=== PATIENT | female | born 1955 | race Caucasian/White ===

== ENCOUNTER 2021-08-27 14:22 | Observation (INO) ==
[2021-08-27] MEDS ORDERED: SODIUM CHLORIDE 0.9% 1000ML 1,000 ML IV SCH (15:15)
--- NOTE | 2021-08-27 15:39 | XRay Report ---
XR chest 1V portable CLINICAL HISTORY: SEPSIS TECHNIQUE: Single frontal radiograph of the chest was obtained. Comparison: None available at the time of this dictation. FINDINGS: A left portacatheter is seen. The cardiomediastinal silhouette is normal. The lungs are clear. No prateek dence of pleural effusion or pneumothorax. IMPRESSION: No acute abnormality and in particular no evidence of pneumonia. ACT 112: Negative or not required by law. Electronically signed by: Rodriguez Candelario M.D. 08/27/2021 3:38 PM
--- NOTE | 2021-08-27 15:58 | Emergency Department Note ---
History of Present Illness General Chief complaint: Illness Stated complaint: WEAKNESS, ACID REFLUX Time Seen by Provider: 08/27/21 14:57 History of Present Illness Provider complaint: Weakness Onset (ago): day(s) 3 Associated symptoms: + weakness; no chest pain, no cough, no fever/chills, no headaches, no nausea/vomiting or no shortness of breath 66-year-old female presents emergency department for weakness. Patient is currently being treated for cancer by Dr. Delbert Magaña. Patient has a primary diagnosis of breast cancer. Patient got her first infusion of chemotherapy on Monday and since then has been feeling weak. No falls. No chest pain or difficulty breathing. No abdominal pain. No nausea vomiting diarrhea. No hematuria dysuria. No melena hematochezia. Patient had labs done by Dr. Mandujano which showed a sodium [address] Mandujano recommended the patient come to the emergency department. Patient reports no seizures or headaches. No fevers. Home Medications Medication Instructions Recorded Confirmed Type aspirin 81 mg tablet,delayed 81 mg PO QAM 10/27/19 08/27/21 History release calcium carbonate 600 mg (1,500 1 tab PO BID 10/27/19 08/27/21 History mg)-vitamin D3 200 unit tablet (Calcium 600 + D(3)) cholecalciferol (vitamin D3) 50 2,000 unit PO QPM 10/27/19 08/27/21 History mcg (2,000 unit) tablet (Vitamin D3) multivitamin-ferrous 1 tab PO QPM 10/27/19 08/27/21 History fumarate-folic acid 18 mg-400 mcg tablet (Centrum Women) latanoprost 0.005 % eye drops 1 drp OPB PM #7.5 ml 07/02/20 08/27/21 Rx lamotrigine 200 mg tablet 200 mg PO QAM 12/31/20 08/27/21 History (Lamictal) trazodone 50 mg tablet 150 mg PO HS 12/31/20 08/27/21 History escitalopram oxalate 20 mg tablet 10 mg PO QAM 02/11/21 08/27/21 History (Lexapro) lamotrigine 100 mg tablet 100 mg PO BID 02/11/21 08/27/21 History hydroxyzine HCl 10 mg tablet 10 mg PO TID tab 03/11/21 08/27/21 History melatonin 5 mg tablet 10 - 15 mg PO HS tab 03/24/21 08/27/21 History vitamin B complex (B 1 tab PO QAM 03/26/21 08/27/21 History Complex-Vitamin B12) estradiol 1 appful VAGINAL QPM 05/11/21 08/27/21 History nystatin 100,000 unit/gram topical 1 applic TOPICAL DAILY PRN 05/11/21 08/27/21 History ointment triamcinolone acetonide 0.1 % 1 applic TOPICAL DAILY PRN 05/11/21 08/27/21 History topical ointment allopurinol 100 mg tablet 100 mg PO QAM #90 tab 05/31/21 08/27/21 Rx amlodipine 2.5 mg tablet 2.5 mg PO QAM #90 tab 05/31/21 08/27/21 Rx atorvastatin 20 mg tablet (Lipitor) 20 mg PO QPM #90 tab 05/31/21 08/27/21 Rx carvedilol 25 mg tablet 25 mg PO BID #180 tab 05/31/21 08/27/21 Rx celecoxib 100 mg capsule (Celebrex) 100 mg PO QDL #90 cap 05/31/21 08/27/21 Rx losartan 100 mg tablet 100 mg PO QAM #90 tab 05/31/21 08/27/21 Rx triamterene 37.5 1 tab PO QAM #90 tab 05/31/21 08/27/21 Rx mg-hydrochlorothiazide 25 mg tablet pantoprazole 40 mg tablet,delayed 40 mg PO BID #180 tab 06/21/21 08/27/21 Rx release (Protonix) lurasidone 20 mg tablet (Latuda) 20 mg PO DAILY 06/30/21 08/27/21 History pregabalin 75 mg capsule (Lyrica) 75 mg PO BID cap 07/01/21 08/27/21 History guaifenesin 600 mg tablet, 600 mg PO BID #60 tab 07/07/21 08/27/21 Rx extended release 12 hr (Mucinex) montelukast 10 mg tablet 10 mg PO DAILY #30 tab 07/07/21 08/27/21 Rx (Singulair) ondansetron HCl 8 mg tablet 8 mg PO Q8H PRN #10 tab 08/03/21 08/27/21 Rx dulaglutide 0.75 mg/0.5 mL 0.75 mg SUBCUT WK 08/27/21 08/27/21 History subcutaneous pen injector (Trulicity) duloxetine 20 mg capsule,delayed 20 mg PO QAM 08/27/21 08/27/21 History release famotidine 20 mg tablet 20 mg PO BID 08/27/21 08/27/21 History Allergies Allergy/AdvReac Type Severity Reaction Status Date / Time amitriptyline Allergy Intermediate manic Verified 07/07/21 14:05 hydrocodone Allergy Intermediate Gastrointestinal Verified 07/07/21 14:05 Upset; "Too Sedating" fluoxetine [From Prozac] Allergy Unknown Unverified 08/27/21 16:35 haloperidol [From Haldol] Allergy Unknown Unverified 08/27/21 16:35 levalbuterol [From Xopenex] AdvReac Intermediate Jittery/anx Verified 07/07/21 14:05 ious perphenazine AdvReac Intermediate "caused Verified 07/07/21 14:05 the shakes" lisinopril AdvReac Mild Cough Verified 07/07/21 14:05 Past Med/Surg History Medical History Abdominal pain Abnormal PFT Allergic rhinitis Anxiety Ataxia Quach's cyst, unruptured Bipolar disorder Cerebral microvascular disease PT UNAWARE Chronic cough Concussion in 1970s Depression Diabetes type 2, uncontrolled Diabetic peripheral neuropathy associated with type 2 diabetes mellitus Dizziness, nonspecific Dry cough Dyslipidemia GERD (gastroesophageal reflux disease) Glaucoma Gout History of panic attacks History of right breast cancer 2013--sx/radiation Hypertension Loss of protective sensation of skin of foot Meniere's disease MVP (mitral valve prolapse) ?hx per records/no murmur noted per multiple recent [facility] PCP physical exams Osteoarthritis Peripheral edema Post traumatic stress disorder Postural lightheadedness Rectal bleeding Sleep apnea cpap SOB (shortness of breath) on exertion Status post partial amputation of foot Tremor of both hands Umbilical hernia Upper airway cough syndrome Vitamin D deficiency Surgical History H/O breast biopsy 02/2014--right breast, malignant H/O colonoscopy 2004/Aug 2015/MARCH 16/2020 H/O foot surgery left. bone graft, [place] [place] 03/2014 Also left hammer toe repair 02/2017 History of amputation of great toe 2019--left foot History of bunionectomy of left great toe History of esophagogastroduodenoscopy (EGD) History of lumpectomy of right breast History of repair of left rotator cuff 2008 and 01/2016 History of repair of right rotator cuff 2008 History of tooth extraction History of total left knee replacement (TKR) x2-- History of total right knee replacement (TKR) 2009 History of umbilical hernia repair History of wisdom tooth extraction S/P cholecystectomy 2007 S/P dilation and curettage 2009, cannot remember what this was for. Family History Uncle Myocardial infarction Family history of diabetes mellitus Mother Myocardial infarction Anxiety Hypertension Stroke Father Myocardial infarction Family hx colonic polyps Hypertension Mood disorder Hearing loss Other Cancer Heart disease No family history of adverse response to anesthesia No family history of bleeding disorder Denies family history of Ovarian cancer Prostate cancer Breast cancer Colorectal cancer Social History Smoking Status: Never smoker Second Hand Exposure: Yes ( CHILD); Hx Alcohol Use: Yes (2 glasses/day) Alcohol type: beer and wine Hx Substance Use: No Preferred Language: [place] Konger Communication Ability: Effective Visual Impairment: Limited Hearing Ability: Normal Electronics Worker Required: No Beliefs That Will Affect Care: None marital status: Single Current Living Situation: Alone current occupational status: employed 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 Safe at Home: Yes Childhood Exposure to Second-Hand Smoke: Yes Dental Care, Regularly: Yes Physical Activity Frequency: 3-4 Times per Week Seatbelt Use: always Sunscreen Use: Yes Assistive Devices: Glasses Review of Systems A total of 10 systems reviewed and were otherwise negative Physical Exam Vital Signs Vital Signs - 24 hr 08/27/21 14:45 08/27/21 15:07 08/27/21 15:13 Temperature 36.6 C Temperature Source Temporal Artery Scan Pulse Rate 75 Pulse Rate [Left Finger] 72 Pulse Rhythm Regular Pulse Strength Normal Respiratory Rate 17 16 18 Respiratory Effort / Characteristics Non-Labored Spontaneous Non-Labored Non-Labored Respiratory Depth Normal Normal Respiratory Pattern Regular Blood Pressure 121/77 Blood Pressure [Left Arm] Blood Pressure Mean 91 Blood Pressure Mean [Left Arm] Pulse Oximetry 100 99 98 Oxygen Delivery Method Room Air Room Air Room Air Sepsis Recent Fever Within 48 Hours No Sepsis New/Unexplained Change in Mental Status No Sepsis Action Taken by Nursing No Action Required 08/27/21 15:16 08/27/21 16:25 Temperature Temperature Source Pulse Rate 72 Pulse Rate [Left Finger] 72 Pulse Rhythm Regular Pulse Strength Respiratory Rate 18 22 Respiratory Effort / Characteristics Non-Labored Respiratory Depth Normal Respiratory Pattern Blood Pressure Blood Pressure [Left Arm] 170/84 H Blood Pressure Mean Blood Pressure Mean [Left Arm] 112 Pulse Oximetry 100 100 Oxygen Delivery Method Room Air Room Air Sepsis Recent Fever Within 48 Hours Sepsis New/Unexplained Change in Mental Status Sepsis Action Taken by Nursing Physical Exam GENERAL: She is oriented to person, place, and time. She appears well-developed and well-nourished. She does not appear distressed. HENT: Exam performed. -Head: Normocephalic and atraumatic. -Right Ear: External ear normal. No mastoid tenderness. -Left Ear: External ear normal. No mastoid tenderness. -Mouth/Throat: The oropharynx is clear and moist. No trismus in the jaw. No dental abscesses or uvula swelling. No oropharyngeal exudate or tonsillar abscesses. EYES: Conjunctivae and EOM are normal. Pupils are equal, round, and reactive to light. Right eye exhibits no discharge. Left eye exhibits no discharge. No scleral icterus. NECK: Normal range of motion. Neck supple. No JVD present. No spinous process tenderness present. No carotid bruit present. No rigidity. No tracheal deviation and normal range of motion present. No Brudzinski's sign and no Kernig's sign noted. CV: Normal rate, regular rhythm, normal heart sounds and intact distal pulses. There is no peripheral edema. Palpable radial pulses bue. PULM/CHEST: Effort normal and breath sounds normal. No respiratory distress. No stridor. She has no wheezes. She has no rales. -Chest Wall: She exhibits no tenderness. ABD: The abdomen is soft. Bowel sounds are normal. She has no distension. No mas s is present. There is no tenderness. There is no rebound, no guarding, no Dempsey's sign and no tenderness at McBurney's point. Rovsig negative MUSC/SKEL: Normal range of motion. There is no peripheral edema, tenderness or deformity. LYMPH: No cervical adenopathy. NEURO: She is alert and oriented to person, place, and time. She has normal strength. No cranial nerve deficit or sensory deficit. Coordination and gait normal. GCS eye subscore is 4. GCS verbal subscore is 5. GCS motor subscore is 6. Cerebellar tests wnl. SKIN: Skin is warm and dry. She is not diaphoretic. PSYCH: She has a normal mood and affect. Behavior is normal. Judgment and thought content normal. Course Course 1457: The patient was evaluated in room C4. A complete history and physical exam was performed Cardiac monitoring: An order was placed for continuous cardiac monitoring. The monitor shows a rate of 70 with sinus rhythm Patient has lab work with her which shows a sodium of 126. 1750: Vital signs stable. Labs show leukocytosis of 13.1. Sodium 126. Potassium 3.2. Potassium replaced in the emergency department. Patient started on normal saline. No need for hypertonic saline at this point as patient is neurologically intact. [facility]. Administered Medications Discontinued Medications Sodium Chloride (Nss 1000ml) 1,000 mls @ 999 mls/hr IV .Q1H1M BERNABE Stop: 08/27/21 16:15 Last Admin: 08/27/21 16:20 Dose: 999 mls/hr Documented by: [id number] Medical Decision Making Laboratory Data Result diagrams: 08/27/21 16:13 08/27/21 16:13 Lab Results 08/27/21 08/27/21 08/27/21 Range/Units 16:08 16:13 16:13 WBC 13.16 H (4.8-10.8) K/uL RBC 4.34 (4.2-5.4) M/uL Hgb 12.2 (12.0-16.0) g/dL Hct 35.6 L (37-47) % MCV 82.0 (80-100) fL MCH 28.1 (25-34) pg MCHC 34.3 (32-36) g/dL RDW Std Deviation 42.6 (36.4-46.3) fL RDW Coeff of Rpeet 14.1 (11.5-14.5) % Plt Count 176 (130-400) K/uL MPV 10.5 H (7.4-10.4) fL Neutrophils % (Manual) 93.0 % Lymphocytes % (Manual) 3.5 % Monocytes % (Manual) 0.9 % Eosinophils % (Manual) 1.7 % Myelocytes % (Man) 0.9 % Neutrophils # (Manual) 12.24 H (1.4-6.5) K/uL Total Absolute Neuts 12.24 H (1.4-6.5) K/uL Lymphocytes # (Manual) 0.46 L (1.2-3.4) K/uL Total Abs Lymphocytes 0.46 L (1.2-3.4) K/uL Monocytes # (Manual) 0.12 (0.11-0.59) K/uL Eosinophils # (Manual) 0.22 (0-0.5) K/uL Myelocytes # (Manual) 0.12 H (0-0) K/uL RBC Morphology Unremarkable PT 10.6 (9.0-12.0) Seconds INR 1.0 (0.9-1.1) APTT 28.6 (21.0-31.0) Seconds PTT Ratio 1.1 Sodium (136-145) mmol/L Potassium (3.5-5.1) mmol/L Chloride (98-107) mmol/L Carbon Dioxide (21-32) mmol/L Anion Gap (3-11) BUN (7-18) mg/dl Creatinine (0.6-1.2) mg/dl Est Cr Clr Drug Dosing ml/min Est GFR ( Amer) ml/min Est GFR (Non-Af Amer) ml/min BUN/Creatinine Ratio (10-20) Glucose (70-99) mg/dl Lactate (0.4-2.0) mmol/L Calcium (8.5-10.1) mg/dl Magnesium (1.8-2.4) mg/dl Total Bilirubin (0.2-1) mg/dl AST (15-37) U/L ALT (12-78) U/L Alkaline Phosphatase (45-117) U/L Troponin I (0-0.045) ng/ml Total Protein (6.4-8.2) gm/dl Albumin (3.4-5.0) gm/dl Globulin (2.5-4.0) gm/dl Albumin/Globulin Ratio (0.9-2) Procalcitonin (0-0.5) ng/ml SARS-CoV-2, RNA, NAAT NEGATIVE (NEGATIVE) 11/19/21 11/19/21 11/19/21 Range/Units 16:13 16:13 16:13 WBC (4.8-10.8) K/uL RBC (4.2-5.4) M/uL Hgb (12.0-16.0) g/dL Hct (37-47) % MCV (80-100) fL MCH (25-34) pg MCHC (32-36) g/dL RDW Std Deviation (36.4-46.3) fL RDW Coeff of Preet (11.5-14.5) % Plt Count (130-400) K/uL MPV (7.4-10.4) fL Neutrophils % (Manual) % Lymphocytes % (Manual) % Monocytes % (Manual) % Eosinophils % (Manual) % Myelocytes % (Man) % Neutrophils # (Manual) (1.4-6.5) K/uL Total Absolute Neuts (1.4-6.5) K/uL Lymphocytes # (Manual) (1.2-3.4) K/uL Total Abs Lymphocytes (1.2-3.4) K/uL Monocytes # (Manual) (0.11-0.59) K/uL Eosinophils # (Manual) (0-0.5) K/uL Myelocytes # (Manual) (0-0) K/uL RBC Morphology PT (9.0-12.0) Seconds INR (0.9-1.1) APTT (21.0-31.0) Seconds PTT Ratio Sodium 126 L (136-145) mmol/L Potassium 3.2 L (3.5-5.1) mmol/L Chloride 90 L (98-107) mmol/L Carbon Dioxide 25 (21-32) mmol/L Anion Gap 11.0 (3-11) BUN 12 (7-18) mg/dl Creatinine 0.58 L (0.6-1.2) mg/dl Est Cr Clr Drug Dosing 119.0 ml/min Est GFR ( Amer) 111.3 ml/min Est GFR (Non-Af Amer) 96.1 ml/min BUN/Creatinine Ratio 20.0 (10-20) Glucose 108 H (70-99) mg/dl Lactate 0.8 (0.4-2.0) mmol/L Calcium 7.9 L (8.5-10.1) mg/dl Magnesium 2.2 (1.8-2.4) mg/dl Total Bilirubin 1.4 H (0.2-1) mg/dl AST 7 L (15-37) U/L ALT 21 (12-78) U/L Alkaline Phosphatase 74 (45-117) U/L Troponin I < 0.015 (0-0.045) ng/ml Total Protein 6.6 (6.4-8.2) gm/dl Albumin 3.1 L (3.4-5.0) gm/dl Globulin 3.5 (2.5-4.0) gm/dl Albumin/Globulin Ratio 0.9 (0.9-2) Procalcitonin 0.14 (0-0.5) ng/ml SARS-CoV-2, RNA, NAAT (NEGATIVE) Imaging Data Radiologist's Impression: Chest X-Ray 08/27/21 15:06 XR chest 1V portable CLINICAL HISTORY: SEPSIS TECHNIQUE: Single frontal radiograph of the chest was obtained. Comparison: None available at the time of this dictation. FINDINGS: A left portacatheter is seen. The cardiomediastinal silhouette is normal. The lungs are clear. No evidence of pleural effusion or pneumothorax. IMPRESSION: No acute abnormality and in particular no evidence of pneumonia. ACT 112: Negative or not required by law. Electronically signed by: Rodriguez Candelario M.D. 08/27/2021 3:38 PM ECG Data Indication: + weakness Rate (beats per minute): 72 Rhythm: + normal sinus ECG Intervals/blocks: + Normal QRS, + Normal ME and + Normal QT-c ECG ST segments: + Normal ST segments [facility] Narrative 1457: The patient was evaluated in room C4. A complete history and physical exam was performed Cardiac monitoring: An order was placed for continuous cardiac monitoring. The monitor shows a rate of 70 with sinus rhythm Patient has lab work with her which shows a sodium of 126. 1750: Vital signs stable. Labs show leukocytosis of 13.1. Sodium 126. P otassium 3.2. Potassium replaced in the emergency department. Patient started on normal saline. No need for hypertonic saline at this point as patient is neurologically intact. [facility] team notified. Impression & Plan Acute hyponatremia, Acute hypokalemia Discharge Plan Visit Data Chief Complaint: Illness Stated Complaint: WEAKNESS, ACID REFLUX ED Provider: Blu Serrano Discharge Problem: Acute hyponatremia, Acute hypokalemia Patient Disposition: Admitted As Inpatient Discharge Instructions Interventions: ED Discharge Assessment Last Done: 08/27/21 17:50
[2021-08-27 16:24] LABS: Hematocrit (blood only) 35.6 % (37-47); Hemoglobin 12.2 g/dL (12.0-16.0); Mean Corpuscular Hemoglobin 28.1 pg (25-34); Mean Corpuscular Hgb Conc 34.3 g/dL (32-36); Mean Platelet Volume 10.5 fL (7.4-10.4); Platelet Count 176 K/uL (130-400); RDW Coefficient of Variation 14.1 % (11.5-14.5); RDW Standard Deviation 42.6 fL (36.4-46.3); Red Blood Count 4.34 M/uL (4.2-5.4); White Blood Count 13.16 K/uL (4.8-10.8)
[2021-08-27 16:36] LABS: Partial Thromboplastin Ratio 1.1; Partial Thromboplastin Time 28.6 Seconds (21.0-31.0); Prothrombin Time 10.6 Seconds (9.0-12.0)
[2021-08-27 16:41] LABS: Alanine Aminotransferase 21 U/L (12-78); Albumin Level 3.1 gm/dl (3.4-5.0); Aspartate Aminotransferase 7 U/L (15-37); Blood Urea Nitrogen 12 mg/dl (7-18); Calcium 7.9 mg/dl (8.5-10.1); Carbon Dioxide 25 mmol/L (21-32); Chloride 90 mmol/L (98-107); Est GFR (African American) 111.3 ml/min; Est GFR (Non-African American) 96.1 ml/min; Glucose 108 mg/dl (70-99); Magnesium 2.2 mg/dl (1.8-2.4); Potassium 3.2 mmol/L (3.5-5.1); Sodium 126 mmol/L (136-145)
[2021-08-27 16:45] LABS: Albumin Globulin Ratio 0.9 (0.9-2); Alkaline Phosphatase 74 U/L (45-117); Bilirubin,Total 1.4 mg/dl (0.2-1); Globulin 3.5 gm/dl (2.5-4.0); Total Protein 6.6 gm/dl (6.4-8.2); Troponin I < 0.015 ng/ml (0-0.045)
[2021-08-27 16:52] LABS: ALC (manual) 0.46 K/uL (1.2-3.4); ANC (manual) 12.24 K/uL (1.4-6.5); Eosinophils # (manual) 0.22 K/uL (0-0.5); Eosinophils % (manual) 1.7 %; Lymphocytes # (manual) 0.46 K/uL (1.2-3.4); Lymphocytes % (manual) 3.5 %; Monocytes # (manual) 0.12 K/uL (0.11-0.59); Monocytes % (manual) 0.9 %; Myelocytes # (manual) 0.12 K/uL (0-0); Myelocytes % (manual) 0.9 %; Neutrophils # (manual) 12.24 K/uL (1.4-6.5); RBC Morphology Unremarkable
--- NOTE | 2021-08-27 17:15 | History & Physical Report ---
Date of Service August 27, 2021 Assessment & Plan (1) Malignant neoplasm of breast: Plan: - Admit to med tele - Hx of first chemo regimen on 08/26/21 with taxotere and cyclophosphamide. Pt got pegfilgrastim on 08/25/21 for risks for neutropenia. - Follows with Dr. Mandujano with heme/onc as an outpatient -follow-up as routinely scheduled within the next 1 week -Likely contributing to increased weakness, body aches, generalized malaise (2) Hyponatremia: Plan: -Sodium of 126 on admission, status post 1 L NSS, continue NSS at 80 mL/h -Check urine sodium, urine creatinine, urine osm -Recheck BMP every 4 hours -Encourage p.o. intake for now - IV zofran prn nausea as likely contributing. Diarrhea likely adverse effect of chemotherapy also contributing, follow, consider loperamide if needed (3) Diabetes type 2, uncontrolled: Plan: -Trulicity given weekly on Wednesdays, can continue with ISS with Accu-Cheks achs -Last A1c = 6.1 (4) Diabetic peripheral neuropathy associated with type 2 diabetes mellitus: Plan: - Hx of such - PT/OT consults - Typically walks without assistive devices - Encourage ambulation, continue Lyrica (5) Dyslipidemia: Plan: - Cont atorvastatin (6) GERD (gastroesophageal reflux disease): Plan: - Cont omeprazole (7) Obesity: Plan: - BMI 34.1, encourage diet and exercise throughout stay and upon discharge (8) Hypertension: Plan: -Continue triamterene/HCTZ, losartan 100 mg daily, Carvedilol 25 mg BID, amlodipine 2.5 daily - Currently BP elevated, monitor, likely dehydration playing a role. (9) Bipolar disorder: Plan: Continue lamotrigine 200 mg in the morning, 100 mg at noon and at bedtime -Continue Latuda -Hold Cymbalta as she recently started this x3 doses and possible side effect includes hyponatremia -Follows with psychiatry at [facility] as an outpatient -Continue trazodone at bedtime for sleep and hydroxyzine 3 times daily for anxiety DVT ppx: -Lovenox subcu, teds CODE: Full code Dispo: From home, likely to remain in the hospital x 1-2 days History of Present Illness Primary Care Provider: Ildefonso Langford MD This is a 66 yo F With PMHx of breast cancer s/p R lumpectomy in 2004, without needs for XRT or chemotherapy at that time. Recurrence of breast cancer now and she recently received her first treatment with pilfigrastin for neutropenia on Monday, and chemotherapy on Monday with taxotere and cyclophosphamide. Other PMHx includes obesity, HTN, HLD, bipolar disorder, depression, and GERD. She presents to the ER with complaints of weakness. Pt also notes having a decreased appetite and some diarrhea today x 2. Her abdomen hurts in the middle and epigastric region. She has body aches throughout today. Pt had repeat labs done for routine monitoring, and was found to be hyponatremic, which is new since one month ago. Pt other complaints of dry cough which is chronic since being on lisinopril. COVID-19 is negative. Pt is requesting a catheter because she feels so weak that she is afraid she wont be able to get to the bathroom, we discussed purwick and she is agreeable to this instead. Denies other acute complaints. Allergies Allergy/AdvReac Type Severity Reaction Status Date / Time amitriptyline Allergy Intermediate manic Verified 07/07/21 14:05 hydrocodone Allergy Intermediate Gastrointestinal Verified 07/07/21 14:05 Upset; "Too Sedating" fluoxetine [From Prozac] Allergy Unknown Unverified 08/27/21 16:35 haloperidol [From Haldol] Allergy Unknown Unverified 08/27/21 16:35 levalbuterol [From Xopenex] AdvReac Intermediate Jittery/anx Verified 07/07/21 14:05 ious perphenazine AdvReac Intermediate "caused Verified 07/07/21 14:05 the shakes" lisinopril AdvReac Mild Cough Verified 07/07/21 14:05 Home Medications Medication Instructions Recorded Confirmed Type aspirin 81 mg tablet,delayed 81 mg PO QAM 10/27/19 08/27/21 History release calcium carbonate 600 mg (1,500 1 tab PO BID 10/27/19 08/27/21 History mg)-vitamin D3 200 unit tablet (Calcium 600 + D(3)) cholecalciferol (vitamin D3) 50 2,000 unit PO QPM 10/27/19 08/27/21 History mcg (2,000 unit) tablet (Vitamin D3) multivitamin-ferrous 1 tab PO QPM 10/27/19 08/27/21 History fumarate-folic acid 18 mg-400 mcg tablet (Centrum Women) latanoprost 0.005 % eye drops 1 drp OPB PM #7.5 ml 07/02/20 08/27/21 Rx lamotrigine 200 mg tablet 200 mg PO QAM 12/31/20 08/27/21 History (Lamictal) trazodone 50 mg tablet 150 mg PO HS 12/31/20 08/27/21 History escitalopram oxalate 20 mg tablet 10 mg PO QAM 02/11/21 08/27/21 History (Lexapro) lamotrigine 100 mg tablet 100 mg PO BID 02/11/21 08/27/21 History hydroxyzine HCl 10 mg tablet 10 mg PO TID tab 03/11/21 08/27/21 History melatonin 5 mg tablet 10 - 15 mg PO HS tab 03/24/21 08/27/21 History vitamin B complex (B 1 tab PO QAM 03/26/21 08/27/21 History Complex-Vitamin B12) estradiol 1 appful VAGINAL QPM 05/11/21 08/27/21 History nystatin 100,000 unit/gram topical 1 applic TOPICAL DAILY PRN 05/11/21 08/27/21 History ointment triamcinolone acetonide 0.1 % 1 applic TOPICAL DAILY PRN 05/11/21 08/27/21 History topical ointment allopurinol 100 mg tablet 100 mg PO QAM #90 tab 05/31/21 08/27/21 Rx amlodipine 2.5 mg tablet 2.5 mg PO QAM #90 tab 05/31/21 08/27/21 Rx atorvastatin 20 mg tablet (Lipitor) 20 mg PO QPM #90 tab 05/31/21 08/27/21 Rx carvedilol 25 mg tablet 25 mg PO BID #180 tab 05/31/21 08/27/21 Rx celecoxib 100 mg capsule (Celebrex) 100 mg PO QDL #90 cap 05/31/21 08/27/21 Rx losartan 100 mg tablet 100 mg PO QAM #90 tab 05/31/21 08/27/21 Rx triamterene 37.5 1 tab PO QAM #90 tab 05/31/21 08/27/21 Rx mg-hydrochlorothiazide 25 mg tablet pantoprazole 40 mg tablet,delayed 40 mg PO BID #180 tab 06/21/21 08/27/21 Rx release (Protonix) lurasidone 20 mg tablet (Latuda) 20 mg PO DAILY 06/30/21 08/27/21 History pregabalin 75 mg capsule (Lyrica) 75 mg PO BID cap 07/01/21 08/27/21 History guaifenesin 600 mg tablet, 600 mg PO BID #60 tab 07/07/21 08/27/21 Rx extended release 12 hr (Mucinex) montelukast 10 mg tablet 10 mg PO DAILY #30 tab 07/07/21 08/27/21 Rx (Singulair) ondansetron HCl 8 mg tablet 8 mg PO Q8H PRN #10 tab 08/03/21 08/27/21 Rx dulaglutide 0.75 mg/0.5 mL 0.75 mg SUBCUT WK 08/27/21 08/27/21 History subcutaneous pen injector (Trulicity) duloxetine 20 mg capsule,delayed 20 mg PO QAM 08/27/21 08/27/21 History release famotidine 20 mg tablet 20 mg PO BID 08/27/21 08/27/21 History Past Med/Surg History Medical History Abdominal pain Abnormal PFT Allergic rhinitis Anxiety Ataxia Quach's cyst, unruptured Bipolar disorder Cerebral microvascular disease PT UNAWARE Chronic cough Concussion in Depression Diabetes type 2, uncontrolled Diabetic peripheral neuropathy associated with type 2 diabetes mellitus Dizziness, nonspecific Dry cough Dyslipidemia GERD (gastroesophageal reflux disease) Glaucoma Gout History of panic attacks History of right breast cancer 2013--sx/radiation Hypertension Loss of protective sensation of skin of foot Meniere's disease MVP (mitral valve prolapse) ?hx per records/no murmur noted per multiple recent [facility] PCP physical exams Osteoarthritis Peripheral edema Post traumatic stress disorder Postural lightheadedness Rectal bleeding Sleep apnea cpap SOB (shortness of breath) on exertion Status post partial amputation of foot Tremor of both hands Umbilical hernia Upper airway cough syndrome Vitamin D deficiency Surgical History H/O breast biopsy 02/2014--right breast, malignant H/O colonoscopy 2004/Aug 2015/MARCH 16/2020 H/O foot surgery left. bone graft, Radames Bullock 03/2014 Also left hammer toe repair 02/2017 History of amputation of great toe 2018--left foot History of bunionectomy of left great toe History of esophagogastroduodenoscopy (EGD) History of lumpectomy of right breast History of repair of left rotator cuff 2008 and 01/2016 History of repair of right rotator cuff 2007 History of tooth extraction History of total left knee replacement (TKR) x2-- History of total right knee replacement (TKR) 2009 History of umbilical hernia repair History of wisdom tooth extraction S/P cholecystectomy 2007 S/P dilation and curettage 2009, cannot remember what this was for. Family History Uncle Myocardial infarction Family history of diabetes mellitus Mother Myocardial infarction Anxiety Hypertension Stroke Father Myocardial infarction Family hx colonic polyps Hypertension Mood disorder Hearing loss Other Cancer Heart disease No family history of adverse response to anesthesia No family history of bleeding disorder Denies family history of Ovarian cancer Prostate cancer Breast cancer Colorectal cancer Social History Smoking Status: Never smoker Second Hand Exposure: Yes ( CHILD); Hx Alcohol Use: Yes (2 glasses/day) Alcohol type: beer and wine Hx Substance Use: No Preferred Language: Wolof Communication Ability: Effective Visual Impairment: Limited Hearing Ability: Normal Electrical Prospector Required: No Beliefs That Will Affect Care: None marital status: Single Current Living Situation: Alone current occupational status: employed 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 Feels Safe at Home: Yes Childhood Exposure to Second-Hand Smoke: Yes Dental Care, Regularly: Yes Physical Activity Frequency: 3-4 Times per Week Seatbelt Use: always Sunscreen Use: Yes Assistive Devices: Glasses Review of Systems Review of Systems: Constitutional: No fever, sweats or chills Eyes: No diplopia, no worsening or blurred vision ENT: normal hearing, no trouble swallowing Respiratory: + chronic dry cough, no sputum, dyspnea at rest or on exertion Cardiovascular: No chest pain, tightness or palpitations Abdomen: As per HPI, epigastric and periumbilical pain, + nausea, no vomiting, + diarrhea but no constipation Musculoskeletal: No joint pain, calf pain, swelling Neurologic: + generalized weakness, numbness/tingling, or balance problems Psychiatric: No anxiety or depression Skin: No rash or itch Physical Exam Physical Exam: General: awake, alert, no apparent distress, + obese Head: Normocephalic, atraumatic ENT: PERRL, EOMI, no pharyngeal exudate, mucous membranes dry Chest: Clear to auscultation, on room air, no adventitious breath sounds Cardiac: Regular rate and rhythm, no murmur, no JVD, normal peripheral pulses, good capillary refill Abdominal: NABS x 4 quadrants, soft, nondistended, minimally tender to palpation diffusely but no point tenderness, no rebound or guarding Extremities: Normal inspection, trace peripheral edema BLE, no erythema, calfs nontender to palpation Psych: Normal mood and affect Neuro: AAO x 3, strength intact bilaterally and rated 4/5 throughout, no motor deficits, speech is clear, no peripheral sensory deficits Results & Data Results & Data ([facility]) Vital Signs (Past 12 Hours) Vital Signs Temp Pulse Pulse Resp BP BP Pulse Ox 08/27/21 17:07 76 18 152/78 H 97 08/27/21 16:25 72 22 170/84 H 100 08/27/21 15:16 72 18 100 08/27/21 15:13 18 98 08/27/21 15:07 72 16 99 08/27/21 14:45 36.6 C 75 17 121/77 100 Diagnostic Findings Chest X-Ray 08/27/21 15:06 XR chest 1V portable CLINICAL HISTORY: SEPSIS TECHNIQUE: Single frontal radiograph of the chest was obtained. Comparison: None available at the time of this dictation. FINDINGS: A left portacatheter is seen. The cardiomediastinal silhouette is normal. The lungs are clear. No evidence of pleural effusion or pneumothorax. IMPRESSION: No acute abnormality and in particular no evidence of pneumonia. ACT 112: Negative or not required by law. Electronically signed by: Rodriguez Candelario M.D. 08/27/2021 3:38 PM ECG Additional Comments: 27-AUG-2021 16:00:04 [facility]-EDSTAT ROUTINE RETRIEVAL Normal sinus rhythm Nonspecific T wave abnormality Abnormal ECG No previous ECGs available 25mm/s 10mm/mV 150Hz 9.0.9 12SL 241 SUSHMA: 16 Referred by: REFERRED SELF Unconfirmed Vent. rate 72 BPM GA interval 156 ms QRS duration 86 ms QT/QTc 414/453 ms Code Status & VTE Plan Code Status Full code VTE Prophylaxis Plan VTE Prophylaxis will be ordered: Yes Supervising Physician Co-Signing Physician Notes Pt is a 66 y/o F with hx of DMII, HTN, Bipolar, Depression/anxiety, GERD, recent dx of R breast Ca admitted for hypoNa+ -pt received chemotherapy on 08/24 and per pt she was also started on Cymbalta on 3 days ago for depression. -Na+ trend from outpt labs: 134>129>126 Exam: Mild distress Cardiac: normal S1/S2, no murmur Lungs: CTA Abd: ND, soft, normal BS and mild diffuse TTP MSK: mild b/l LE pitting edema A/P: HypoNa+: -2/2 Decreased PO intake vs SIADH (from Cymbalta) -pt is s/p 1L NS - will get q4hr BMP ---- 80 cc/hr NS -replete hypoK+ --will obtain Serum and Urine OSM, Urine Na, Urea, and Cr Elevated Wbc: -afebrile -CXR: normal -Pt had elevated Wbc as outpt also Agree with A/P by Candy Kohli PA-C
[2021-08-27] MEDS ORDERED: CARBOHYDRATES FOR HYPOGLYCEMIA PO PRN (17:51)
[2021-08-27] MEDS ORDERED: POTASSIUM CHLORIDE 10 MEQ TABCR PO STA (17:51)
[2021-08-27] MEDS ORDERED: GLUCOSE 10 TABS/TUBE PO PRN (17:51)
[2021-08-27] MEDS ORDERED: GLUCOSE 40% GEL 15 GM TUBE PO PRN (17:51)
[2021-08-27] MEDS ORDERED: DEXTROSE 50% 50 ML SYRINGE IV PRN (17:51)
[2021-08-27] MEDS ORDERED: GLUCAGON FOR INJ 1 MG VIAL SQ PRN (17:51)
[2021-08-27 18:25] LABS: BUN Creatinine Ratio 19.5 (10-20); Calcium 8.2 mg/dl (8.5-10.1); Creatinine Clr Calc Pharmacy 130.2 ml/min; Est GFR (African American) 114.7 ml/min; Est GFR (Non-African American) 98.9 ml/min; Potassium 3.2 mmol/L (3.5-5.1)
[2021-08-27] MEDS: ONDANSETRON INJ 2 MG/ML 2 ML VIAL IV PRN (20:22)
[2021-08-27] MEDS: FAMOTIDINE 20 MG TAB PO SCH (20:25)
[2021-08-27] MEDS: MELATONIN 3 MG TAB PO SCH (20:26)
[2021-08-27 20:27] LABS: Appearance Urine Clear (Clear); Bilirubin Urine Negative (Negative); Blood Urine Negative (Negative); Color Urine Yellow; Glucose Urine UA Negative (Negative); Ketones Urine Negative (Negative); Leukocyte Esterase Urine Negative (Negative); Nitrite Urine Negative (Negative); Protein Urine Negative (Negative); Specific Gravity Urine 1.005 (1.000-1.030); Urobilinogen Urine Negative (Negative); pH Urine 7.5 (4.5-7.5)
[2021-08-27] MEDS: traZODone HCL 50 MG TAB PO SCH (20:27)
[2021-08-27] MEDS: hydrOXYzine HCl 10 MG TAB PO SCH (20:29)
[2021-08-27] MEDS: carvediloL 25 MG TAB PO SCH (20:29)
[2021-08-27] MEDS: ATORVASTATIN 20 MG TAB PO SCH (20:29)
[2021-08-27] MEDS: CHOLECALCIFEROL 1,000 UNITS 25 MCG TAB PO SCH (20:31)
[2021-08-27 20:42] LABS: Creatinine Urine Random < 13.0 mg/dl; Sodium Random Urine 72 mmol/L
[2021-08-27] MEDS ORDERED: POTASSIUM CHLORIDE 10 MEQ TABCR PO ONE (20:50)
[2021-08-27] MEDS: SODIUM CHLORIDE 0.9% 1000ML 1,000 ML IV SCH (20:52)
[2021-08-27] MEDS: LATANOPROST 0.005% OP SOLN 2.5 ML BTL OPB SCH (20:53)
[2021-08-27] MEDS: lamoTRIgine 100 MG TAB PO SCH (20:53)
[2021-08-27] MEDS: INSULIN ASPART 100 UNITS/ML 3 ML PEN SC SCH (20:53)
[2021-08-27] MEDS: PREGABALIN 75 MG CAP PO SCH (23:09)
[2021-08-27 23:38] LABS: BUN Creatinine Ratio 15.4 (10-20); Calcium 8.6 mg/dl (8.5-10.1); Creatinine Clr Calc Pharmacy 130.2 ml/min; Est GFR (African American) 114.7 ml/min; Est GFR (Non-African American) 98.9 ml/min; Potassium 3.4 mmol/L (3.5-5.1)
[2021-08-28] MEDS: ONDANSETRON INJ 2 MG/ML 2 ML VIAL IV PRN ×4 (02:49→18:33)
[2021-08-28 04:58] LABS: Hematocrit (blood only) 34.2 % (37-47); Hemoglobin 11.5 g/dL (12.0-16.0); Mean Corpuscular Hemoglobin 27.8 pg (25-34); Mean Corpuscular Hgb Conc 33.6 g/dL (32-36); Mean Corpuscular Volume 82.6 fL (80-100); Platelet Count 159 K/uL (130-400); RDW Coefficient of Variation 14.3 % (11.5-14.5); RDW Standard Deviation 43.7 fL (36.4-46.3); Red Blood Count 4.14 M/uL (4.2-5.4); White Blood Count 6.72 K/uL (4.8-10.8)
[2021-08-28 05:34] LABS: Albumin Level 2.8 gm/dl (3.4-5.0); BUN Creatinine Ratio 15.1 (10-20); Calcium 8.3 mg/dl (8.5-10.1); Creatinine Clr Calc Pharmacy 128.5 ml/min; Est GFR (African American) 115.4 ml/min; Est GFR (Non-African American) 99.6 ml/min; Magnesium 2.3 mg/dl (1.8-2.4); Potassium 3.5 mmol/L (3.5-5.1)
[2021-08-28 05:37] LABS: Albumin Globulin Ratio 0.9 (0.9-2); Bilirubin Direct 0.4 mg/dl (0-0.2); Bilirubin,Total 1.4 mg/dl (0.2-1); Globulin 3.2 gm/dl (2.5-4.0)
[2021-08-28 07:57] LABS: Estimated Average Glucose 134 mg/dl; Hemoglobin A1C 6.3 % (4.5-5.6)
[2021-08-28] MEDS: amLODIPine BESYLATE 5 MG TAB PO SCH (09:27)
[2021-08-28] MEDS: allopurinoL 100 MG TAB PO SCH (09:28)
[2021-08-28] MEDS: carvediloL 25 MG TAB PO SCH ×2 (09:29→20:56)
[2021-08-28] MEDS: ASPIRIN 81 MG ECTAB PO SCH (09:29)
[2021-08-28] MEDS: ENOXAPARIN INJ 40 MG/0.4 ML SYR SQ SCH (09:30)
[2021-08-28] MEDS: ESCITALOPRAM OXALATE 10 MG TAB PO SCH (09:31)
[2021-08-28] MEDS: lamoTRIgine 100 MG TAB PO SCH ×2 (09:32→20:54)
[2021-08-28] MEDS: hydrOXYzine HCl 10 MG TAB PO SCH ×3 (09:32→18:24)
[2021-08-28] MEDS: LOSARTAN POTASSIUM 50 MG TAB PO SCH (09:33)
[2021-08-28] MEDS: PREGABALIN 75 MG CAP PO SCH ×2 (09:33→20:53)
[2021-08-28] MEDS: TRIAMTERENE/HCTZ 37.5/25MG TAB PO SCH (09:33)
[2021-08-28] MEDS: FAMOTIDINE 20 MG TAB PO SCH ×2 (09:36→20:56)
[2021-08-28] MEDS: INSULIN ASPART 100 UNITS/ML 3 ML PEN SC SCH ×4 (09:53→21:21)
[2021-08-28] MEDS: SODIUM CHLORIDE 0.9% 1000ML 1,000 ML IV SCH (12:39)
--- NOTE | 2021-08-28 19:13 | Hospitalist Progress Note ---
Date of Service August 28, 2021 Assessment & Plan (1) Acute hyponatremia: (2) Malignant neoplasm of breast: (3) Weakness: Plan: 66 yo F With PMHx of breast cancer s/p R lumpectomy in 2004, without needs for XRT or chemotherapy at that time. Recurrence of breast cancer now and she recently received her first treatment with pilfigrastin for neutropenia on Monday, and chemotherapy on Monday with taxotere and cyclophosphamide. Other PMHx includes obesity, HTN, HLD, bipolar disorder, depression, and GERD. She presented to ER 08/27 with complaint of weakness. She is being managed for the following: #. Malignant neoplasm of breast #. Weakness - Admitted to med tele - Hx of first chemo regimen on 08/26/21 with taxotere and cyclophosphamide. Pt got pegfilgrastim on 08/25/21 for risks for neutropenia. - Follows with Dr. Mandujano with heme/onc as an outpatient -follow-up as routinely scheduled within the next 1 week - Likely contributing to increased weakness, body aches, generalized malaise -PT/OT while inpatient, orthostatic vitals, will await recommendation. #. Hyponatremia: -Sodium of 126 on admission, status post 1 L NSS, continue NSS at 80 mL/h -Likely secondary to diarrhea [likely an adverse effect from chemotherapy] and or adverse effect of chemo. -Monitor bowel movement/nausea vomiting/hold Cymbalta -Patient reports BM improving. -Sodium level up to 130 today, monitor BMP daily, continue with IV fluid for now -Assess for discontinuation of IV fluid tomorrow. As needed Zofran. -Encourage p.o. intake for now, increase protein intake. #. Diabetes type 2, uncontrolled: -Trulicity given weekly on Wednesdays, can continue with ISS with Accu-Cheks achs -Last A1c = 6.1 #. Diabetic peripheral neuropathy associated with type 2 diabetes mellitus: - Hx of such - PT/OT consults - Typically walks without assistive devices - Encourage ambulation, continue Lyrica #. Dyslipidemia: - Cont atorvastatin #. GERD (gastroesophageal reflux disease): - Cont omeprazole #. Obesity: - BMI 34.1, encourage diet and exercise throughout stay and upon discharge #. Hypertension: -Continue triamterene/HCTZ, losartan 100 mg daily, Carvedilol 25 mg BID, amlodipine 2.5 daily - Currently BP fairly under control -Continue to monitor #. Bipolar disorder: Continue lamotrigine 200 mg in the morning, 100 mg at noon and at bedtime -Continue Latuda -Hold Cymbalta as she recently started this x3 doses and possible side effect includes hyponatremia -Follows with psychiatry at [facility] as an outpatient -Continue trazodone at bedtime for sleep and hydroxyzine 3 times daily for anxiety -Resume Cymbalta once sodium level normal DVT ppx: -Lovenox subcu, teds CODE: Full code Dispo: From home, likely to remain in the hospital x 1-2 days . PT/OT to [facility] to help with DC planning. . Admission and Anticipated Discharge Date Admission Date: August 27, 2021 Subjective Patient was lying in bed, on room air, NAD, reports feeling weak especially when changing positions, will get orthostatic vitals. Patient was eating lunch at bedside exam. Denies fever/headache/chills/chest pain/palpitation/other review of symptoms. Physical Exam Physical Exam: GENERAL: Alert and oriented x3. NAD, on RA. HEENT: No pallor, no icterus. Pupils equal, round and reactive to light. Oral mucosa moist. NECK: No JVD, no neck masses. HEART: S1 and S2 heard. Regular rate and rhythm. No murmur, no gallop. RESPIRATORY SYSTEM: Normal AP diameter. No accessory muscle use. No wheezing, no crackles. ABDOMEN: Soft, bowel sounds present, nontender, no distention. CENTRAL NERVOUS SYSTEM: No facial droop. Speech is clear. Obeys simple commands. Moves extremities. EXTREMITIES: Trace edema, no erythema seen. Results & Data Results & Data ([facility]) Vital Signs (Past 12 Hours) Vital Signs Pulse Resp BP Pulse Ox 08/28/21 16:00 81 17 95 08/28/21 15:30 81 17 96 08/28/21 15:00 81 18 114/51 L 96 08/28/21 14:30 79 23 93 08/28/21 14:00 79 21 134/62 95 08/28/21 13:30 78 19 08/28/21 13:00 78 19 115/56 L 08/28/21 11:00 84 16 95/53 L 95 08/28/21 08:00 82 14 133/75 96 08/28/21 07:35 85 15 151/78 H 98
[2021-08-28] MEDS: LATANOPROST 0.005% OP SOLN 2.5 ML BTL OPB SCH (20:53)
[2021-08-28] MEDS: MELATONIN 3 MG TAB PO SCH (20:56)
[2021-08-28] MEDS: CHOLECALCIFEROL 1,000 UNITS 25 MCG TAB PO SCH (20:57)
[2021-08-28] MEDS: traZODone HCL 50 MG TAB PO SCH (20:57)
[2021-08-28] MEDS: ATORVASTATIN 20 MG TAB PO SCH (20:58)
[2021-08-29] MEDS: SODIUM CHLORIDE 0.9% 1000ML 1,000 ML IV SCH ×2 (00:44→08:25)
[2021-08-29] MEDS: hydrOXYzine HCl 10 MG TAB PO SCH ×5 (00:44→23:24)
[2021-08-29] MEDS: ACETAMINOPHEN 325 MG TAB PO PRN (00:51)
[2021-08-29 06:41] LABS: Hematocrit (blood only) 32.2 % (37-47); Hemoglobin 10.8 g/dL (12.0-16.0); Mean Corpuscular Hemoglobin 27.9 pg (25-34); Mean Corpuscular Hgb Conc 33.5 g/dL (32-36); Mean Corpuscular Volume 83.2 fL (80-100); Mean Platelet Volume 10.4 fL (7.4-10.4); Platelet Count 155 K/uL (130-400); RDW Coefficient of Variation 14.4 % (11.5-14.5); Red Blood Count 3.87 M/uL (4.2-5.4); White Blood Count 1.48 K/uL (4.8-10.8)
[2021-08-29 06:50] LABS: Albumin Level 2.7 gm/dl (3.4-5.0); BUN Creatinine Ratio 17.1 (10-20); Calcium 8.4 mg/dl (8.5-10.1); Creatinine Clr Calc Pharmacy 128.5 ml/min; Est GFR (African American) 115.4 ml/min; Est GFR (Non-African American) 99.6 ml/min; Magnesium 2.3 mg/dl (1.8-2.4); Potassium 3.1 mmol/L (3.5-5.1)
[2021-08-29 06:53] LABS: Albumin Globulin Ratio 0.8 (0.9-2); Bilirubin,Total 1.4 mg/dl (0.2-1); Globulin 3.2 gm/dl (2.5-4.0); Total Protein 5.9 gm/dl (6.4-8.2)
[2021-08-29] MEDS: amLODIPine BESYLATE 5 MG TAB PO SCH (08:23)
[2021-08-29] MEDS: TRIAMTERENE/HCTZ 37.5/25MG TAB PO SCH (08:23)
[2021-08-29] MEDS: lamoTRIgine 100 MG TAB PO SCH ×3 (08:23→20:41)
[2021-08-29] MEDS: ASPIRIN 81 MG ECTAB PO SCH (08:23)
[2021-08-29] MEDS: LOSARTAN POTASSIUM 50 MG TAB PO SCH (08:24)
[2021-08-29] MEDS: ESCITALOPRAM OXALATE 10 MG TAB PO SCH (08:24)
[2021-08-29] MEDS: FAMOTIDINE 20 MG TAB PO SCH ×2 (08:24→20:41)
[2021-08-29] MEDS: allopurinoL 100 MG TAB PO SCH (08:24)
[2021-08-29] MEDS: ENOXAPARIN INJ 40 MG/0.4 ML SYR SQ SCH (08:25)
[2021-08-29] MEDS: carvediloL 25 MG TAB PO SCH ×2 (08:25→20:41)
[2021-08-29] MEDS: INSULIN ASPART 100 UNITS/ML 3 ML PEN SC SCH ×4 (08:33→20:39)
[2021-08-29] MEDS: PREGABALIN 75 MG CAP PO SCH ×2 (08:44→21:07)
--- NOTE | 2021-08-29 09:37 | Electrocardiogram Report ---
Test Reason : Blood Pressure : / mmHG Vent. Rate : 072 BPM Atrial Rate : 072 BPM P-R Int : 156 ms QRS Dur : 086 ms QT Int : 414 ms P-R-T Axes : 069 049 061 degrees QTc Int : 453 ms Normal sinus rhythm Nonspecific T wave abnormality Abnormal ECG No previous ECGs available Confirmed by Khanh Mancuso ([id number]) on 08/29/2021 9:37:18 AM Referred By: REFERRED SELF Confirmed By:Khanh Mancuso
--- NOTE | 2021-08-29 09:47 | Electrocardiogram Report ---
Test Reason : Blood Pressure : / mmHG Vent. Rate : 078 BPM Atrial Rate : 078 BPM P-R Int : 148 ms QRS Dur : 082 ms QT Int : 392 ms P-R-T Axes : 033 013 049 degrees QTc Int : 446 ms Normal sinus rhythm Normal ECG When compared with ECG of 27-AUG-2021 16:00, (unconfirmed) No significant change was found Confirmed by Khanh Mancuso ([id number]) on 08/29/2021 9:46:38 AM Referred By: REFERRED SELF Confirmed By:Khanh Mancuso
[2021-08-29] MEDS: ONDANSETRON INJ 2 MG/ML 2 ML VIAL IV PRN (09:57)
[2021-08-29] MEDS ORDERED: POTASSIUM CHLORIDE CRTAB 20 MEQ TABCR PO STA (11:10)
[2021-08-29 11:34] LABS: White Blood Count 1.06 K/uL (4.8-10.8)
[2021-08-29 11:52] LABS: Basophils # (auto) 0.03 K/uL (0-0.2); Basophils % (auto) 2.8 %; Eosinophils # (auto) 0.05 K/uL (0-0.5); Eosinophils % (auto) 4.7 %; Lymphocytes # (auto) 0.29 K/uL (1.2-3.4); Lymphocytes % (auto) 27.4 %; Monocytes # (auto) 0.13 K/uL (0.11-0.59); Monocytes % (auto) 12.3 %; Neutrophils # (auto) 0.56 K/uL (1.4-6.5); Neutrophils % (auto) 52.8 %
[2021-08-29] MEDS: MIDODRINE HCL 2.5 MG TAB PO SCH ×2 (12:12→17:12)
--- NOTE | 2021-08-29 17:04 | Hospitalist Progress Note ---
Date of Service August 29, 2021 Assessment & Plan (1) Acute hyponatremia: (2) Malignant neoplasm of breast: (3) Weakness: Plan: 66 yo F With PMHx of breast cancer s/p R lumpectomy in 2004, without needs for XRT or chemotherapy at that time. Recurrence of breast cancer now and she recently received her first treatment with pilfigrastin for neutropenia on Monday, and chemotherapy on Monday with taxotere and cyclophosphamide. Other PMHx includes obesity, HTN, HLD, bipolar disorder, depression, and GERD. She presented to ER 08/27 with complaint of weakness. She is being managed for the following: #. Malignant neoplasm of breast #. Weakness #. Neutropenia - Admitted to med tele - Hx of first chemo regimen on 08/26/21 with taxotere and cyclophosphamide. Pt got pegfilgrastim on 08/25/21 for risks for neutropenia. - Follows with Dr. Mandujano with heme/onc as an outpatient -follow-up as routinely scheduled within the next 1 week - Likely contributing to increased weakness, body aches, generalized malaise -PT/OT while inpatient, orthostatic vitals, will await recommendation. -For neutropenia, will continue to monitor CBC daily, expect to rise since patient has received pegfilgrastim in the recent past. Monitor for any signs and symptoms of infection, as of now procalcitonin is negative and patient does not have any signs and symptoms of infection. -08/[address] Jason Mandujano [patient's oncologist] and updated about her situation, no need for neutropenic precaution for now. Continue to monitor for any signs and symptoms of infection. #. Hyponatremia: -Sodium of 126 on admission, status post 1 L NSS, continue NSS at 80 mL/h -Likely secondary to diarrhea [likely an adverse effect from chemotherapy] and or adverse effect of chemo. -Monitor bowel movement/nausea vomiting/hold Cymbalta ---> patient reporting improvement in her diarrhea. -Sodium level up to 132 today, monitor BMP daily -DC IV fluid. As needed Zofran. -Encourage p.o. intake for now, increase protein intake. #. Diabetes type 2, uncontrolled: -Trulicity given weekly on Wednesdays, can continue with ISS with Accu-Cheks achs -Last A1c = 6.1 #. Diabetic peripheral neuropathy associated with type 2 diabetes mellitus: - Hx of such - PT/OT consults - Typically walks without assistive devices - Encourage ambulation, continue Lyrica #. Dyslipidemia: - Cont atorvastatin #. GERD (gastroesophageal reflux disease): - Cont omeprazole #. Obesity: - BMI 34.1, encourage diet and exercise throughout stay and upon discharge #. Hypertension: -Continue triamterene/HCTZ, losartan 100 mg daily, Carvedilol 25 mg BID, amlodip ine 2.5 daily - Currently BP fairly under control -Continue to monitor #. Bipolar disorder: Continue lamotrigine 200 mg in the morning, 100 mg at noon and at bedtime -Continue Latuda -Hold Cymbalta as she recently started this x3 doses and possible side effect includes hyponatremia -Follows with psychiatry at [facility] as an outpatient -Continue trazodone at bedtime for sleep and hydroxyzine 3 times daily for anxiety -Resume Cymbalta once sodium level normal DVT ppx: -Lovenox subcu, teds CODE: Full code Dispo: From home, getting better, can be discharged once her WBC level normalizes. PT/OT to [facility] to help with DC planning. . Admission and Anticipated Discharge Date Admission Date: August 27, 2021 Subjective Patient was lying in bed, on room air, NAD, reports feeling weak/dizzy especially when changing positions, orthostatic vitals positive, patient advised to take time to change position and allow her body to react to new position. Patient was eating lunch at bedside exam. Denies fever/headache/chills/chest pain/palpitation/other review of symptoms. Physical Exam Physical Exam: GENERAL: Alert and oriented x3. NAD, on RA. HEENT: No pallor, no icterus. Pupils equal, round and reactive to light. Oral mucosa moist. NECK: No JVD, no neck masses. HEART: S1 and S2 heard. Regular rate and rhythm. No murmur, no gallop. RESPIRATORY SYSTEM: Normal AP diameter. No accessory muscle use. No wheezing, no crackles. ABDOMEN: Soft, bowel sounds present, nontender, no distention. CENTRAL NERVOUS SYSTEM: No facial droop. Speech is clear. Obeys simple commands. Moves extremities. EXTREMITIES: Trace edema, no erythema seen. Results & Data Results & Data ([place]) Vital Signs (Past 12 Hours) Vital Signs Temp Pulse Pulse Resp BP BP Pulse Ox 08/29/21 16:00 84 18 145/79 H 96 08/29/21 14:00 79 15 08/29/21 13:30 82 20 08/29/21 13:00 83 20 08/29/21 12:30 86 21 08/29/21 12:00 36.5 C 84 83 19 100/61 102/60 95 08/29/21 08:00 36.6 C 85 25 H 139/72 94 08/29/21 06:14 36.5 C 73 16 147/86 H 96
[2021-08-29] MEDS: ATORVASTATIN 20 MG TAB PO SCH (20:40)
[2021-08-29] MEDS: CHOLECALCIFEROL 1,000 UNITS 25 MCG TAB PO SCH (20:41)
[2021-08-29] MEDS: traZODone HCL 50 MG TAB PO SCH (20:42)
[2021-08-29] MEDS: MELATONIN 3 MG TAB PO SCH (20:43)
[2021-08-29] MEDS: LATANOPROST 0.005% OP SOLN 2.5 ML BTL OPB SCH (20:45)
[2021-08-30] MEDS ORDERED: COUGH DROP (SUGAR FREE) LOZ 24 LOZ/1 BOX BUCCAL PRN (00:09)
[2021-08-30] MEDS: hydrOXYzine HCl 10 MG TAB PO SCH ×4 (06:07→17:15)
[2021-08-30 06:10] LABS: Hematocrit (blood only) 31.7 % (37-47); Mean Corpuscular Hemoglobin 28.9 pg (25-34); Mean Corpuscular Hgb Conc 34.7 g/dL (32-36); Mean Corpuscular Volume 83.2 fL (80-100); Platelet Count 166 K/uL (130-400); RDW Coefficient of Variation 14.2 % (11.5-14.5); RDW Standard Deviation 43.7 fL (36.4-46.3); Red Blood Count 3.81 M/uL (4.2-5.4); White Blood Count 1.28 K/uL (4.8-10.8)
[2021-08-30 06:49] LABS: Albumin Level 2.8 gm/dl (3.4-5.0); Calcium 8.6 mg/dl (8.5-10.1); Creatinine Clr Calc Pharmacy 109.5 ml/min; Est GFR (African American) 109.5 ml/min; Est GFR (Non-African American) 94.5 ml/min; Potassium 3.2 mmol/L (3.5-5.1)
[2021-08-30 06:52] LABS: Albumin Globulin Ratio 0.8 (0.9-2); Globulin 3.5 gm/dl (2.5-4.0); Total Protein 6.3 gm/dl (6.4-8.2)
[2021-08-30] MEDS: lamoTRIgine 100 MG TAB PO SCH ×6 (07:57→20:13)
[2021-08-30] MEDS: MIDODRINE HCL 2.5 MG TAB PO SCH ×3 (07:57→17:14)
[2021-08-30] MEDS: allopurinoL 100 MG TAB PO SCH (07:58)
[2021-08-30] MEDS: ESCITALOPRAM OXALATE 10 MG TAB PO SCH (07:58)
[2021-08-30] MEDS: ASPIRIN 81 MG ECTAB PO SCH (07:58)
[2021-08-30] MEDS: FAMOTIDINE 20 MG TAB PO SCH ×2 (07:59→20:12)
[2021-08-30] MEDS: ENOXAPARIN INJ 40 MG/0.4 ML SYR SQ SCH (08:01)
[2021-08-30] MEDS: PREGABALIN 75 MG CAP PO SCH ×2 (08:02→20:19)
[2021-08-30] MEDS: INSULIN ASPART 100 UNITS/ML 3 ML PEN SC SCH ×4 (09:21→21:18)
[2021-08-30] MEDS: amLODIPine BESYLATE 5 MG TAB PO SCH (09:55)
[2021-08-30] MEDS: LOSARTAN POTASSIUM 50 MG TAB PO SCH (09:55)
[2021-08-30] MEDS: TRIAMTERENE/HCTZ 37.5/25MG TAB PO SCH (09:56)
[2021-08-30] MEDS: carvediloL 25 MG TAB PO SCH ×2 (09:57→20:14)
[2021-08-30] MEDS ORDERED: POTASSIUM CHLORIDE CRTAB 20 MEQ TABCR PO STA (09:57)
[2021-08-30] MEDS ORDERED: POTASSIUM CHLORIDE CRTAB 20 MEQ TABCR PO ONE (13:00)
[2021-08-30] MEDS: HEPARIN 100 UNIT/ML 5ML FLUSH FLUSH PRN (13:43)
[2021-08-30] MEDS: LOPERAMIDE HCL 2 MG CAP PO PRN (14:38)
--- NOTE | 2021-08-30 17:28 | Hospitalist Progress Note ---
Date of Service August 30, 2021 Assessment & Plan (1) Acute hyponatremia: (2) Malignant neoplasm of breast: (3) Weakness: Plan: 66 yo F With PMHx of breast cancer s/p R lumpectomy in 2004, without needs for XRT or chemotherapy at that time. Recurrence of breast cancer now and she recently received her first treatment with pilfigrastin for neutropenia on Monday, and chemotherapy on Monday with taxotere and cyclophosphamide. Other PMHx includes obesity, HTN, HLD, bipolar disorder, depression, and GERD. She presented to ER 08/27 with complaint of weakness. She is being managed for the following: #. Malignant neoplasm of breast #. Weakness #. Neutropenia - Admitted to med tele - Hx of first chemo regimen on 08/26/21 with taxotere and cyclophosphamide. Pt got pegfilgrastim on 08/25/21 for risks for neutropenia. - Follows with Dr. Mandujano with heme/onc as an outpatient -follow-up as routinely scheduled within the next 1 week - Likely contributing to increased weakness, body aches, generalized malaise -PT/OT while inpatient, orthostatic vitals - -> positive -For neutropenia (improving today), will continue to monitor CBC daily, expect to rise since patient has received pegfilgrastim in the recent past. Monitor for any signs and symptoms of infection, so far procalcitonin is negative and patient does not have any signs and symptoms of infection. -08/[address] Jason Mandujano [patient's oncologist] and updated about her situation, no need for neutropenic precaution for now. Continue to monitor for any signs and symptoms of infection. #. Hyponatremia: -Baseline Na is low normal -Sodium of 126 on admission, status post 1 L NSS, continue NSS at 80 mL/h -Likely secondary to diarrhea [likely an adverse effect from chemotherapy] and or adverse effect of chemo. -Monitor bowel movement/nausea vomiting/hold Cymbalta ---> patient reporting improvement in her diarrhea. -Sodium level up to 132 today, monitor BMP daily -Resume Cymbalata . As needed Zofran. -Encourage p.o. intake for now, increase protein intake. #. Diabetes type 2, uncontrolled: -Trulicity given weekly on Wednesdays, can continue with ISS with Accu-Cheks achs -Last A1c = 6.1 #. Diabetic peripheral neuropathy associated with type 2 diabetes mellitus: - Hx of such - PT/OT consults - Typically walks without assistive devices - Encourage ambulation, continue Lyrica #. Dyslipidemia: - Cont atorvastatin #. GERD (gastroesophageal reflux disease): - Cont omeprazole #. Obesity: - BMI 34.1, encourage diet and exercise throughout stay and upon discharge #. Hypertension: -Continue triamterene/HCTZ, losartan 100 mg daily, Carvedilol 25 mg BID, amlodipine 2.5 daily - Currently BP fairly under control -Continue to monitor #. Bipolar disorder: Continue lamotrigine 200 mg in the morning, 100 mg at noon and at bedtime -Continue Latuda -Hold Cymbalta as she recently started this x3 doses and possible side effect includes hyponatremia -Follows with psychiatry at [facility] as an outpatient -Continue trazodone at bedtime for sleep and hydroxyzine 3 times daily for anxiety -Resume Cymbalta DVT ppx: -Lovenox subcu, teds CODE: Full code Dispo: From home, getting better, can be discharged once her WBC level normalizes. PT/OT --H w/ HH, CM to help with DC planning. DC tomorrow. . Admission and Anticipated Discharge Date Admission Date: August 27, 2021 Subjective Patient was lying in bed, on room air, NAD, reports loose stool in AM, C diff came out negative. , orthostatic vitals positive, patient advised to take time to change position and allow her body to react to new position. Patient was eating okay. Denies fever/headache/chills/chest pain/palpitation/other review of symptoms. Reports diarrhea improving. Physical Exam Physical Exam: GENERAL: Alert and oriented x3. NAD, on RA. HEENT: No pallor, no icterus. Pupils equal, round and reactive to light. Oral mucosa moist. NECK: No JVD, no neck masses. HEART: S1 and S2 heard. Regular rate and rhythm. No murmur, no gallop. RESPIRATORY SYSTEM: Normal AP diameter. No accessory muscle use. No wheezing, no crackles. ABDOMEN: Soft, bowel sounds present, nontender, no distention. CENTRAL NERVOUS SYSTEM: No facial droop. Speech is clear. Obeys simple commands. Moves extremities. EXTREMITIES: Trace edema, no erythema seen. Results & Data Results & Data ([facility]) Vital Signs (Past 12 Hours) Vital Signs Temp Pulse Pulse Resp BP Pulse Ox 08/30/21 15:48 36.9 C 88 16 148/84 H 98 08/30/21 14:20 82 08/30/21 11:00 36.7 C 77 18 112/71 96 08/30/21 07:00 37.0 C 74 78 18 127/78 96
[2021-08-30] MEDS: CHOLECALCIFEROL 1,000 UNITS 25 MCG TAB PO SCH (20:14)
[2021-08-30] MEDS: LATANOPROST 0.005% OP SOLN 2.5 ML BTL OPB SCH (20:15)
[2021-08-30] MEDS: ATORVASTATIN 20 MG TAB PO SCH (20:15)
[2021-08-30] MEDS: MELATONIN 3 MG TAB PO SCH (20:18)
[2021-08-30] MEDS: ACETAMINOPHEN 325 MG TAB PO PRN (20:19)
[2021-08-30] MEDS: traZODone HCL 50 MG TAB PO SCH (20:19)
[2021-08-30] MEDS: CALCIUM 600MG + VIT D 400 IU TAB PO SCH (21:13)
[2021-08-30] MEDS ORDERED: SODIUM CHLORIDE 0.9% 500 ML IV ONE (22:50)
[2021-08-30 23:41] LABS: BUN Creatinine Ratio 17.4 (10-20); Calcium 8.5 mg/dl (8.5-10.1); Creatinine Clr Calc Pharmacy 68.9 ml/min; Est GFR (African American) 70.5 ml/min; Est GFR (Non-African American) 60.9 ml/min; Potassium 3.4 mmol/L (3.5-5.1)
[2021-08-31] MEDS ORDERED: POTASSIUM CHLORIDE CRTAB 20 MEQ TABCR PO STA (00:06)
[2021-08-31] MEDS: hydrOXYzine HCl 10 MG TAB PO SCH ×3 (00:46→12:26)
[2021-08-31] MEDS: HEPARIN 100 UNIT/ML 5ML FLUSH FLUSH PRN ×2 (07:49→15:29)
[2021-08-31 08:11] LABS: Hematocrit (blood only) 32.1 % (37-47); Hemoglobin 10.8 g/dL (12.0-16.0); Mean Corpuscular Hemoglobin 27.8 pg (25-34); Mean Corpuscular Hgb Conc 33.6 g/dL (32-36); Mean Corpuscular Volume 82.7 fL (80-100); Mean Platelet Volume 10.4 fL (7.4-10.4); Nucleated RBC # (auto) 0.02 K/uL (0-0); Nucleated RBC % (auto) 0.5 %; Platelet Count 183 K/uL (130-400); RDW Coefficient of Variation 14.2 % (11.5-14.5); RDW Standard Deviation 43.7 fL (36.4-46.3); Red Blood Count 3.88 M/uL (4.2-5.4); White Blood Count 4.65 K/uL (4.8-10.8)
[2021-08-31] MEDS: FAMOTIDINE 20 MG TAB PO SCH (08:39)
[2021-08-31] MEDS: TRIAMTERENE/HCTZ 37.5/25MG TAB PO SCH (08:39)
[2021-08-31] MEDS: allopurinoL 100 MG TAB PO SCH (08:39)
[2021-08-31] MEDS: LOSARTAN POTASSIUM 50 MG TAB PO SCH (08:39)
[2021-08-31] MEDS: ASPIRIN 81 MG ECTAB PO SCH (08:39)
[2021-08-31] MEDS: MIDODRINE HCL 2.5 MG TAB PO SCH ×2 (08:39→12:27)
[2021-08-31] MEDS: CALCIUM 600MG + VIT D 400 IU TAB PO SCH (08:39)
[2021-08-31] MEDS: INSULIN ASPART 100 UNITS/ML 3 ML PEN SC SCH ×2 (08:40→12:28)
[2021-08-31] MEDS: ENOXAPARIN INJ 40 MG/0.4 ML SYR SQ SCH (08:40)
[2021-08-31] MEDS: ESCITALOPRAM OXALATE 10 MG TAB PO SCH (08:40)
[2021-08-31] MEDS: PREGABALIN 75 MG CAP PO SCH (08:45)
[2021-08-31 09:00] LABS: BUN Creatinine Ratio 14.3 (10-20); Calcium 8.7 mg/dl (8.5-10.1); Creatinine Clr Calc Pharmacy 89.9 ml/min; Est GFR (African American) 97.8 ml/min; Est GFR (Non-African American) 84.4 ml/min; Phosphorus 4.5 mg/dl (2.5-4.9); Potassium 3.6 mmol/L (3.5-5.1)
[2021-08-31] MEDS ORDERED: MONTELUKAST SODIUM 10 MG TABLET PO SCH (09:00)
[2021-08-31] MEDS ORDERED: carvediloL 12.5 MG TAB PO SCH (09:00)
[2021-08-31] MEDS ORDERED: DULoxetine HCL 20 MG CAP PO SCH (09:00)
[2021-08-31] MEDS: lamoTRIgine 100 MG TAB PO SCH ×2 (10:00→12:27)
[2021-08-31] MEDS: LOPERAMIDE HCL 2 MG CAP PO PRN ×2 (13:29→13:44)
--- NOTE | 2021-08-31 18:59 | Discharge Summary ---
Date of Service August 31, 2021 Admission HPI Per Admitting Provider This is a 66 yo F With PMHx of breast cancer s/p R lumpectomy in 2004, without needs for XRT or chemotherapy at that time. Recurrence of breast cancer now and she recently received her first treatment with pilfigrastin for neutropenia on Monday, and chemotherapy on Monday with taxotere and cyclophosphamide. Other PMHx includes obesity, HTN, HLD, bipolar disorder, depression, and GERD. She presents to the ER with complaints of weakness. Pt also notes having a decreased appetite and some diarrhea today x 2. Her abdomen hurts in the middle and epigastric region. She has body aches throughout today. Pt had repeat labs done for routine monitoring, and was found to be hyponatremic, which is new since one month ago. Pt other complaints of dry cough which is chronic since being on lisinopril. COVID-19 is negative. Pt is requesting a catheter because she feels so weak that she is afraid she wont be able to get to the bathroom, we discussed purwick and she is agreeable to this instead. Denies other acute complaints. Admission Exam Per Admitting Provider General: awake, alert, no apparent distress, + obese Head: Normocephalic, atraumatic ENT: PERRL, EOMI, no pharyngeal exudate, mucous membranes dry Chest: Clear to auscultation, on room air, no adventitious breath sounds Cardiac: Regular rate and rhythm, no murmur, no JVD, normal peripheral pulses, good capillary refill Abdominal: NABS x 4 quadrants, soft, nondistended, minimally tender to palpation diffusely but no point tenderness, no rebound or guarding Extremities: Normal inspection, trace peripheral edema BLE, no erythema, calfs nontender to palpation Psych: Normal mood and affect Neuro: AAO x 3, strength intact bilaterally and rated 4/5 throughout, no motor deficits, speech is clear, no peripheral sensory deficits Principal Diagnosis Hyponatremia Diarrhea Neutropenia Orthostatic hypotension Weakness Discharge Exam GENERAL: Alert and oriented x3. NAD, on RA. HEENT: No pallor, no icterus. Pupils equal, round and reactive to light. Oral mucosa moist. NECK: No JVD, no neck masses. HEART: S1 and S2 heard. Regular rate and rhythm. No murmur, no gallop. RESPIRATORY SYSTEM: Normal AP diameter. No accessory muscle use. No wheezing, no crackles. ABDOMEN: Soft, bowel sounds present, nontender, no distention. CENTRAL NERVOUS SYSTEM: No facial droop. Speech is clear. Obeys simple commands. Moves extremities. EXTREMITIES: Trace edema, no erythema seen. Discharge Data Allergies Allergy/AdvReac Type Severity Reaction Status Date / Time amitriptyline Allergy Intermediate manic Verified 07/07/21 14:05 hydrocodone Allergy Intermediate Gastrointestinal Verified 07/07/21 14:05 Upset; "Too Sedating" fluoxetine [From Prozac] Allergy Unknown Unverified 08/27/21 16:35 haloperidol [From Haldol] Allergy Unknown Unverified 08/27/21 16:35 levalbuterol [From Xopenex] AdvReac Intermediate Jittery/anx Verified 07/07/21 14:05 ious perphenazine AdvReac Intermediate "caused Verified 07/07/21 14:05 the shakes" lisinopril AdvReac Mild Cough Verified 07/07/21 14:05 Consultations 08/27/21 16:45 ED Decision to Admit Stat Hospital Course (1) Acute hyponatremia: (2) Malignant neoplasm of breast: (3) Weakness: 66 yo F With PMHx of breast cancer s/p R lumpectomy in 2004, without needs for XRT or chemotherapy at that time. Recurrence of breast cancer now and she recently received her first treatment with pilfigrastin for neutropenia on Monday, and chemotherapy on Monday with taxotere and cyclophosphamide. Other PMHx includes obesity, HTN, HLD, bipolar disorder, depression, and GERD. She presented to ER 08/27 with complaint of weakness. She was managed for the following: #. Malignant neoplasm of breast #. Weakness #. Neutropenia - Admitted to med tele - Hx of first chemo regimen on 08/26/21 with taxotere and cyclophosphamide. Pt got pegfilgrastim on 08/25/21 for risks for neutropenia. - Follows with Dr. Mandujano with heme/onc as an outpatient -follow-up as routinely scheduled within the next 1 week - Likely contributing to increased weakness, body aches, generalized malaise -PT/OT while inpatient, orthostatic vitals - -> positive -Her neutropenia and WBC count improved. Patient feeling better with regard to strength. Patient to follow-up with the PCP and her oncologist as an outpatient. #. Hyponatremia: -Baseline Na is low normal -Sodium of 126 on admission, status post 1 L NSS, continue NSS at 80 mL/h -Likely secondary to diarrhea [likely an adverse effect from chemotherapy] and or adverse effect of chemo. -Monitor bowel movement/nausea vomiting/hold Cymbalta ---> patient reporting improvement in her diarrhea. -Sodium level close to normal at 135 on the day of discharge. -Continue with Cymbalta. -Patient advised to increase protein intake. #. Diabetes type 2, uncontrolled: -Trulicity given weekly on Wednesdays, can continue with ISS with Accu-Cheks achs -Last A1c = 6.1 #. Diabetic peripheral neuropathy associated with type 2 diabetes mellitus: - Hx of such - PT/OT while inpatient. - Typically walks without assistive devices - Encourage ambulation, continue Lyrica #. Dyslipidemia: - Cont atorvastatin #. GERD (gastroesophageal reflux disease): - Cont omeprazole #. Obesity: - BMI 34.1, encourage diet and exercise throughout stay and upon discharge #. Hypertension: -Continue triamterene/HCTZ, losartan 100 mg daily, Carvedilol 25 mg BID, amlodipine 2.5 daily - Currently BP fairly under control -Continue to monitor #. Bipolar disorder: Continue lamotrigine 200 mg in the morning, 100 mg at noon and at bedtime -Continue Latuda -Hold Cymbalta as she recently started this x3 doses and possible side effect includes hyponatremia -Follows with psychiatry at [facility] as an outpatient -Continue trazodone at bedtime for sleep and hydroxyzine 3 times daily for anxiety -Resume Cymbalta DVT ppx: -Lovenox subcu, teds while inpatient. CODE: Full code Following instructions were communicated to the patient at the point of discharge: Follow-up with your primary care physician within a week time. Follow-up with your oncology doctor in 1 to 2 weeks time. When you change position from sleeping to sitting or from sitting to standing or from sleeping to standing, let your body adjust to the new position and do those changing positions slowly so that you do not get dizziness. Your amlodipine is held at discharge, you will be discharged on 7 days worth of midodrine. Your orthostatic hypotension should improve with complete resolution of your diarrhea and increased protein intake, have your PCP evaluate you on the continuation of midodrine and readjust other blood pressure medication. Take medications as prescribed. . Total Time Total Time Spent Total Time Spent (In Minutes): 40 Discharge Plan Discharge Items Patient Disposition: Home - Home Health Services Reason For Visit: HYPONATREMIA Discharge Diagnosis: Hyponatremia Diarrhea Neutropenia Orthostatic hypotension Weakness Activity: Per Instructions section Activity Comment: When you change position, later body adjust to a new position. Non-emergency contact: Primary Care Provider Call non-emergency contact if: you have any medication questions, your symptoms worsen and your temperature is above 101 Follow-up/Referrals: Ildefonso Langford MD [Primary Care Provider] - (Date & Time 09/03/2021 9:00 AM Provider Renetta Moore MD Department General Internal Medicine [facility] ) Diet: Carb Consistent or DM2 Addtl Attending Provider Instructions: Follow-up with your primary care physician within a week time. Follow-up with your oncology doctor in 1 to 2 weeks time. When you change position from sleeping to sitting or from sitting to standing or from sleeping to standing, let your body adjust to the new position and do those changing positions slowly so that you do not get dizziness. Your amlodipine is held at discharge, you will be discharged on 7 days worth of midodrine. Your orthostatic hypotension should improve with complete resolution of your diarrhea and increased protein intake, have your PCP evaluate you on the continuation of midodrine and readjust other blood pressure medication. Take medications as prescribed. Pending Studies at Discharge: Yes (08/27 blood Cx final results. ) Stand-Alone Forms: My [facility] [address], Smoking Cessation Medications and DC Order Prescriptions: New midodrine 2.5 mg Tablet 5 mg PO TID@0800,1200,1700 7 Days Qty: 21 RF: 0 loperamide 2 mg Capsule 2 mg PO Q24H PRN (Reason: loose stool) 7 Days Qty: 7 RF: 0 Continued latanoprost 0.005 % drops 1 drp OPB PM Qty: 7.5 RF: 1 vitamin B complex [B Complex-Vitamin B12] Tablet 1 tab PO QAM RF: 0 allopurinol 100 mg tablet 100 mg PO QAM Qty: 90 RF: 3 atorvastatin [Lipitor] 20 mg tablet 20 mg PO QPM Qty: 90 RF: 3 carvedilol 25 mg tablet 25 mg PO BID Qty: 180 RF: 3 celecoxib [Celebrex] 100 mg capsule 100 mg PO QDL Qty: 90 RF: 3 losartan 100 mg tablet 100 mg PO QAM Qty: 90 RF: 3 triamterene-hydrochlorothiazid 37.5-25 mg tablet 1 tab PO QAM Qty: 90 RF: 3 pantoprazole [Protonix] 40 mg tablet,delayed release (DR/EC) 40 mg PO BID Qty: 180 RF: 3 ondansetron HCl 8 mg tablet 8 mg PO Q8H PRN (Reason: nausea and vomiting) Qty: 10 RF: 0 pregabalin [Lyrica] 75 mg capsule 75 mg PO BID RF: 0 guaifenesin [Mucinex] 600 mg tablet extended release 12hr 600 mg PO BID Qty: 60 RF: 3 montelukast [Singulair] 10 mg tablet 10 mg PO DAILY Qty: 30 RF: 2 hydroxyzine HCl 10 mg tablet 10 mg PO TID RF: 0 Latuda 20 mg tablet 20 mg PO DAILY RF: 0 calcium carbonate-vitamin D3 [Calcium 600 + D(3)] 600 mg(1,500mg) -200 unit Tablet 1 tab PO BID RF: 0 aspirin 81 mg Tablet,Delayed Release (Dr/Ec) 81 mg PO QAM RF: 0 cholecalciferol (vitamin D3) [Vitamin D3] 2,000 unit Tablet 2,000 unit PO QPM RF: 0 Centrum Women 18-400 mg-mcg Tablet 1 tab PO QPM RF: 0 lamotrigine 100 mg tablet 100 mg PO BID RF: 0 escitalopram oxalate [Lexapro] 20 mg Tablet 10 mg PO QAM RF: 0 nystatin 100,000 unit/gram ointment 1 applic topical DAILY PRN (Reason: Rash) RF: 0 triamcinolone acetonide 0.1 % ointment 1 applic topical DAILY PRN (Reason: Rash) RF: 0 estradiol 0.01 % (0.1 mg/gram) cream 1 appful vaginal QPM RF: 0 lamotrigine [Lamictal] 200 mg Tablet 200 mg PO QAM RF: 0 trazodone 50 mg tablet 150 mg PO HS RF: 0 melatonin 5 mg tablet 10 - 15 mg PO HS RF: 0 Trulicity 0.75 mg/0.5 mL pen injector 0.75 mg subcut WK RF: 0 duloxetine 20 mg capsule,delayed release(DR/EC) 20 mg PO QAM RF: 0 famotidine 20 mg Tablet 20 mg PO BID RF: 0 Discontinued amlodipine 2.5 mg tablet 2.5 mg PO QAM Qty: 90 RF: 3 Hold Instructions: low BP Discharge Orders: Discharge Order (Routine); Ordered 08/31/21 Ordered By: Tony Grande/Other Patient Handouts: A1C, Managing Type 2 Diabetes Admission Data Admit Date/Time: 08/27/21 17:04 Attending Provider: Tony Carpenter Admit Provider: King Salazar Primary Care Provider: Ildefonso Langford Other Providers: King Salazar ; [facility] Other Interventions: Discharge Summary Assessment (RN) Last Done: 08/31/21 15:18
== END 2021-08-31 16:39 | disposition home health service (06) ==
LOC: ED 14:22 → SUATTDRO 17:04 → INTOOBSV 17:04 → EDINP 17:04 → 2N 17:50

== ENCOUNTER 2021-09-03 16:37 | Observation (INO) ==
--- NOTE | 2021-09-03 17:22 | Emergency Department Note ---
Impression & Plan Weakness, Acute hyponatremia, Hypokalemia, SERGIO (acute kidney injury), Leukocytosis ED Provider Note NAME: CARLTON WILBURN AGE: 66 SEX: F : 1955 ARRIVES VIA: Ambulance INFORMANT: [Patient] ED PROVIDER(S): [Seferino Balderas MD] CHIEF COMPLAINT: Abnormal labs HISTORY OF PRESENT ILLNESS: The patient is a 66-year-old female presents to the ER with a reportedly low sodium. Her labs were drawn today. The patient left our hospital 3 days ago for a low sodium. Her last chemotherapy for her breast cancer was on Monday, 3 days ago. The patient does feel weak. She is not short of breath. No fever. She does have some intermittent nausea, vomiting and diarrhea. She has no abdominal pain. No chest pain. She was directed to the ED because of the low sodium value. REVIEW OF SYSTEMS: See HPI for pertinent positives and negatives. A total of ten systems were reviewed and were otherwise negative. PMHx/PSHx: See Below SOCIAL HISTORY: See Below. PHYSICAL EXAM: GENERAL: Patient is in no acute distress. HEENT: No acute trauma, normocephalic atraumatic, mucous membranes moist, no nasal congestion, no scleral icterus. NECK: No stridor, no adenopathy, no meningismus, trachea is midline. LUNGS: Clear to auscultation bilaterally, no wheeze, no rhonchi, breath sounds equal. HEART: Without murmurs gallops or rubs, regular rate and rhythm. ABDOMEN: Soft, nontender, bowel sounds positive, no hernias, no peritonitis. EXTREMITIES: No cyanosis, moderate bilateral pedal edema, some mild edema to the right upper extremity, full range of motion of all the joints without pain or difficulty, no signs for acute trauma. NEUROLOGIC: Oriented x 3, no acute motor or sensory deficits, no focal weakness. SKIN: No rash, no jaundice, no diaphoresis. DIFFERENTIAL DIAGNOSIS: Infection, anemia, electrolyte imbalance, hyponatremia, dehydration, medication reaction, dysrhythmia, among others. EMERGENCY DEPARTMENT COURSE/PROCEDURES: ECG: Indication was weakness. The ECG shows a normal sinus rhythm with a rate of 75. There is some nonspecific ST change. There is no ST elevation, no PVCs. The QTc is 431. Continuous Cardiac Monitoring: An order was placed for continuous cardiac monitoring. The monitor shows a rate of 76 with normal sinus rhythm. MEDICAL DECISION MAKING: There is a marked leukocytosis at 21,000, this could be consistent with infection. No worrisome anemia. There was a normal platelet count. Potassium and sodium were both low. There was evidence for acute kidney injury. Lactic acid level was not elevated making severe sepsis less likely. No worrisome liver enzyme elevation. Procalcitonin level was not elevated. The patient appeared to be in a euthyroid state. Urinalysis did not show infection. Covid testing was negative. Chest film did not show pneumonia or CHF. On exam, the patient appeared washed out and tired, no focal neurologic findings. She was not febrile, she was not hypoxic. Patient received IV cefepime as empiric antibiotic coverage. Patient was given IV potassium and IV saline. The patient presents with weakness. She is hyponatremic, hypokalemic, there is some acute kidney injury with a high white blood cell count. She requires a hospital stay, further care and electrolyte replacement. I spoke with the patient and case management. The on-call hospitalist was consulted. Past Med/Surg History Medical History Abdominal pain Abnormal PFT Allergic rhinitis Anxiety Ataxia Quach's cyst, unruptured Bipolar disorder Cerebral microvascular disease PT UNAWARE Chronic cough Concussion in 1970s Depression Diabetes type 2, uncontrolled Diabetic peripheral neuropathy associated with type 2 diabetes mellitus Dizziness, nonspecific Dry cough Dyslipidemia GERD (gastroesophageal reflux disease) Glaucoma Gout History of panic attacks History of right breast cancer 2013--sx/radiation Hypertension Loss of protective sensation of skin of foot Meniere's disease MVP (mitral valve prolapse) ?hx per records/no murmur noted per multiple recent [facility] PCP physical exams Osteoarthritis Peripheral edema Post traumatic stress disorder Postural lightheadedness Rectal bleeding Sleep apnea cpap SOB (shortness of breath) on exertion Status post partial amputation of foot Tremor of both hands Umbilical hernia Upper airway cough syndrome Vitamin D deficiency Surgical History H/O breast biopsy 02/2014--right breast, malignant H/O colonoscopy 2004/Aug 2015/MARCH 16/2020 H/O foot surgery left. bone graft, R. Ara 03/2014 Also left hammer toe repair 02/2017 History of amputation of great toe 2019--left foot History of bunionectomy of left great toe History of esophagogastroduodenoscopy (EGD) History of lumpectomy of right breast History of repair of left rotator cuff 2008 and 01/2016 History of repair of right rotator cuff 2008 History of tooth extraction History of total left knee replacement (TKR) x2-- History of total right knee replacement (TKR) 2009 History of umbilical hernia repair History of wisdom tooth extraction S/P cholecystectomy 2007 S/P dilation and curettage 2009, cannot remember what this was for. Family History Uncle Myocardial infarction Family history of diabetes mellitus Mother Myocardial infarction Anxiety Hypertension Stroke Father Myocardial infarction Family hx colonic polyps Hypertension Mood disorder Hearing loss Other Cancer Heart disease No family history of adverse response to anesthesia No family history of bleeding disorder Denies family history of Ovarian cancer Prostate cancer Breast cancer Colorectal cancer Social History Smoking Status: Never smoker Second Hand Exposure: Yes ( CHILD); Hx Alcohol Use: No Hx Substance Use: No Preferred Language: Swedish Communication Ability: Effective Visual Impairment: Limited Hearing Ability: Normal [employer] Laboratory Assistant Required: No Beliefs That Will Affect Care: None marital status: Single Current Living Situation: Alone current occupational status: employed 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 Feels Safe at Home: Yes Childhood Exposure to Second-Hand Smoke: Yes Dental Care, Regularly: Yes Physical Activity Frequency: 3-4 Times per Week Seatbelt Use: always Sunscreen Use: Yes Assistive Devices: Walker Allergies Allergies Allergy/AdvReac Type Severity Reaction Status Date / Time amitriptyline Allergy Intermediate manic Verified 09/03/21 17:18 hydrocodone Allergy Intermediate Gastrointestinal Verified 09/03/21 17:18 Upset; "Too Sedating" fluoxetine [From Prozac] Allergy Unknown Unverified 09/03/21 17:18 haloperidol [From Haldol] Allergy Unknown Unverified 09/03/21 17:18 levalbuterol [From Xopenex] AdvReac Intermediate Jittery/anx Verified 09/03/21 17:18 ious perphenazine AdvReac Intermediate "caused Verified 09/03/21 17:18 the shakes" lisinopril AdvReac Mild Cough Verified 09/03/21 17:18 Home Meds Home Medications Medication Instructions Recorded Confirmed aspirin 81 mg tablet,delayed 81 mg PO QAM 10/27/19 09/03/21 release calcium carbonate 600 mg (1,500 1 tab PO BID 10/27/19 09/03/21 mg)-vitamin D3 200 unit tablet (Calcium 600 + D(3)) cholecalciferol (vitamin D3) 50 2,000 unit PO QPM 10/27/19 09/03/21 mcg (2,000 unit) tablet (Vitamin D3) multivitamin-ferrous 1 tab PO QPM 10/27/19 09/03/21 fumarate-folic acid 18 mg-400 mcg tablet (Centrum Women) lamotrigine 200 mg tablet 200 mg PO QAM 12/31/20 09/03/21 (Lamictal) trazodone 50 mg tablet 100 - 150 mg PO HS PRN 12/31/20 09/03/21 lamotrigine 100 mg tablet 100 mg PO BID 02/11/21 09/03/21 hydroxyzine HCl 10 mg tablet 10 mg PO .5 TIMES A DAY PRN tab 03/11/21 09/03/21 melatonin 5 mg tablet 10 - 15 mg PO HS tab 03/24/21 09/03/21 vitamin B complex (B 1 tab PO QAM 03/26/21 09/03/21 Complex-Vitamin B12) estradiol 1 appful VAGINAL QPM 05/11/21 09/03/21 nystatin 100,000 unit/gram topical 1 applic TOPICAL DAILY PRN 05/11/21 09/03/21 ointment triamcinolone acetonide 0.1 % 1 applic TOPICAL DAILY PRN 05/11/21 09/03/21 topical ointment lurasidone 20 mg tablet (Latuda) 20 mg PO DAILY 06/30/21 09/03/21 pregabalin 75 mg capsule (Lyrica) 75 mg PO BID cap 07/01/21 09/03/21 dulaglutide 0.75 mg/0.5 mL 0.75 mg SUBCUT WK 08/27/21 09/03/21 subcutaneous pen injector (Trulicity) duloxetine 20 mg capsule,delayed 20 mg PO QAM 08/27/21 09/03/21 release famotidine 20 mg tablet 20 mg PO BID 08/27/21 09/03/21 escitalopram oxalate 10 mg tablet 10 mg PO QAM 09/03/21 09/03/21 prochlorperazine maleate 10 mg 10 mg PO Q6 PRN 09/03/21 09/03/21 tablet Previous Rx's Medication Instructions Recorded latanoprost 0.005 % eye drops 1 drp OPB PM #7.5 ml 07/02/20 allopurinol 100 mg tablet 100 mg PO QAM #90 tab 05/31/21 atorvastatin 20 mg tablet (Lipitor) 20 mg PO QPM #90 tab 05/31/21 carvedilol 25 mg tablet 25 mg PO BID #180 tab 05/31/21 celecoxib 100 mg capsule (Celebrex) 100 mg PO QDL #90 cap 05/31/21 losartan 100 mg tablet 100 mg PO QAM #90 tab 05/31/21 triamterene 37.5 1 tab PO QAM #90 tab 05/31/21 mg-hydrochlorothiazide 25 mg tablet pantoprazole 40 mg tablet,delayed 40 mg PO BID #180 tab 06/21/21 release (Protonix) guaifenesin 600 mg tablet, 600 mg PO BID #60 tab 07/07/21 extended release 12 hr (Mucinex) montelukast 10 mg tablet 10 mg PO DAILY #30 tab 07/07/21 (Singulair) ondansetron HCl 8 mg tablet 8 mg PO Q8H PRN #10 tab 08/03/21 loperamide 2 mg capsule 2 mg PO Q24H PRN 7 Days #7 cap 08/31/21 midodrine 2.5 mg tablet 5 mg PO TID@0800,1200,1700 7 Days 08/31/21 #21 tab Results & Data (ED) Vital Signs Vital Signs - 24 hr 09/03/21 17:03 09/03/21 17:27 09/03/21 23:26 Temperature 36.4 C L Temperature Source Temporal Artery Scan Pulse Rate 77 71 Pulse Rate [Right Finger] 76 Respiratory Rate 18 16 Blood Pressure 137/69 110/50 L Blood Pressure [Left Radial Artery] 129/60 Blood Pressure Mean 91 Blood Pressure Mean [Left Radial Artery] 83 Blood Pressure Position Sitting Pulse Oximetry 96 95 Oxygen Delivery Method Room Air Room Air Sepsis Recent Fever Within 48 Hours No Sepsis New/Unexplained Change in Mental Status No Sepsis Action Taken by Nursing No Action Required Home Medications Current Medication List: was personally reviewed by Laboratory Data Attestation: I reviewed the patient's lab results. Result diagrams: 09/03/21 18:25 09/03/21 23:11 Lab Results 09/03/21 09/03/21 09/03/21 Range/Units 18:25 18:25 20:00 WBC 21.05 H (4.8-10.8) K/uL RBC 4.11 L (4.2-5.4) M/uL Hgb 11.6 L (12.0-16.0) g/dL Hct 33.3 L (37-47) % MCV 81.0 (80-100) fL MCH 28.2 (25-34) pg MCHC 34.8 (32-36) g/dL RDW Std Deviation 41.3 (36.4-46.3) fL RDW Coeff of Preet 13.9 (11.5-14.5) % Plt Count 232 (130-400) K/uL MPV 10.1 (7.4-10.4) fL Neutrophils % (Manual) 91.4 % Lymphocytes % (Manual) 1.7 % Monocytes % (Manual) 4.3 % Myelocytes % (Man) 2.6 % Neutrophils # (Manual) 19.24 H (1.4-6.5) K/uL Total Absolute Neuts 19.24 H (1.4-6.5) K/uL Lymphocytes # (Manual) 0.36 L (1.2-3.4) K/uL Total Abs Lymphocytes 0.36 L (1.2-3.4) K/uL Monocytes # (Manual) 0.91 H (0.11-0.59) K/uL Myelocytes # (Manual) 0.55 H (0-0) K/uL Toxic Granulation 2+ Dohle Bodies 1+ Sodium 127 L (136-145) mmol/L Potassium 3.0 L (3.5-5.1) mmol/L Chloride 92 L (98-107) mmol/L Carbon Dioxide 22 (21-32) mmol/L Anion Gap 13.0 H (3-11) BUN 18 (7-18) mg/dl Creatinine 1.91 H (0.6-1.2) mg/dl Est Cr Clr Drug Dosing 35.8 ml/min Est GFR ( Amer) 31.1 ml/min Est GFR (Non-Af Amer) 26.8 ml/min BUN/Creatinine Ratio 9.4 L (10-20) Glucose 122 H (70-99) mg/dl Lactate (0.4-2.0) mmol/L Calcium 8.4 L (8.5-10.1) mg/dl Phosphorus 6.0 H (2.5-4.9) mg/dl Magnesium 2.2 (1.8-2.4) mg/dl Total Bilirubin 0.5 (0.2-1) mg/dl AST 12 L (15-37) U/L ALT 22 (12-78) U/L Alkaline Phosphatase 98 (45-117) U/L Total Protein 6.8 (6.4-8.2) gm/dl Albumin 3.1 L (3.4-5.0) gm/dl Globulin 3.7 (2.5-4.0) gm/dl Albumin/Globulin Ratio 0.8 L (0.9-2) Procalcitonin 0.05 (0-0.5) ng/ml TSH 0.726 (0.300-4.500) uIu/ml Urine Color Urine Appearance (Clear) Urine pH (4.5-7.5) Ur Specific [place] (1.000-1.030) Urine Protein (Negative) Urine Glucose (UA) (Negative) Urine Ketones (Negative) Urine Blood (Negative) Urine Nitrite (Negative) Urine Bilirubin (Negative) Urine Urobilinogen (Negative) Ur Leukocyte Esterase (Negative) SARS-CoV-2, RNA, NAAT (NEGATIVE) 09/03/21 09/03/21 09/03/21 Range/Units 20:54 21:41 23:11 WBC (4.8-10.8) K/uL RBC (4.2-5.4) M/uL Hgb (12.0-16.0) g/dL Hct (37-47) % MCV (80-100) fL MCH (25-34) pg MCHC (32-36) g/dL RDW Std Deviation (36.4-46.3) fL RDW Coeff of Preet (11.5-14.5) % Plt Count (130-400) K/uL MPV (7.4-10.4) fL Neutrophils % (Manual) % Lymphocytes % (Manual) % Monocytes % (Manual) % Myelocytes % (Man) % Neutrophils # (Manual) (1.4-6.5) K/uL Total Absolute Neuts (1.4-6.5) K/uL Lymphocytes # (Manual) (1.2-3.4) K/uL Total Abs Lymphocytes (1.2-3.4) K/uL Monocytes # (Manual) (0.11-0.59) K/uL Myelocytes # (Manual) (0-0) K/uL Toxic Granulation Dohle Bodies Sodium (136-145) mmol/L Potassium (3.5-5.1) mmol/L Chloride (98-107) mmol/L Carbon Dioxide (21-32) mmol/L Anion Gap (3-11) BUN (7-18) mg/dl Creatinine (0.6-1.2) mg/dl Est Cr Clr Drug Dosing ml/min Est GFR ( Amer) ml/min Est GFR (Non-Af Amer) ml/min BUN/Creatinine Ratio (10-20) Glucose (70-99) mg/dl Lactate 0.5 (0.4-2.0) mmol/L Calcium (8.5-10.1) mg/dl Phosphorus (2.5-4.9) mg/dl Magnesium (1.8-2.4) mg/dl Total Bilirubin (0.2-1) mg/dl AST (15-37) U/L ALT (12-78) U/L Alkaline Phosphatase (45-117) U/L Total Protein (6.4-8.2) gm/dl Albumin (3.4-5.0) gm/dl Globulin (2.5-4.0) gm/dl Albumin/Globulin Ratio (0.9-2) Procalcitonin (0-0.5) ng/ml TSH (0.300-4.500) uIu/ml Urine Color Yellow Urine Appearance Clear (Clear) Urine pH 5.5 (4.5-7.5) Ur Specific [place] 1.004 (1.000-1.030) Urine Protein Negative (Negative) Urine Glucose (UA) Negative (Negative) Urine Ketones Negative (Negative) Urine Blood Negative (Negative) Urine Nitrite Negative (Negative) Urine Bilirubin Negative (Negative) Urine Urobilinogen Negative (Negative) Ur Leukocyte Esterase Negative (Negative) SARS-CoV-2, RNA, NAAT NEGATIVE (NEGATIVE) 09/03/21 Range/Units 23:11 WBC (4.8-10.8) K/uL RBC (4.2-5.4) M/uL Hgb (12.0-16.0) g/dL Hct (37-47) % MCV (80-100) fL MCH (25-34) pg MCHC (32-36) g/dL RDW Std Deviation (36.4-46.3) fL RDW Coeff of Preet (11.5-14.5) % Plt Count (130-400) K/uL MPV (7.4-10.4) fL Neutrophils % (Manual) % Lymphocytes % (Manual) % Monocytes % (Manual) % Myelocytes % (Man) % Neutrophils # (Manual) (1.4-6.5) K/uL Total Absolute Neuts (1.4-6.5) K/uL Lymphocytes # (Manual) (1.2-3.4) K/uL Total Abs Lymphocytes (1.2-3.4) K/uL Monocytes # (Manual) (0.11-0.59) K/uL Myelocytes # (Manual) (0-0) K/uL Toxic Granulation Dohle Bodies Sodium 132 L (136-145) mmol/L Potassium 2.9 L (3.5-5.1) mmol/L Chloride 99 (98-107) mmol/L Carbon Dioxide 22 (21-32) mmol/L Anion Gap 11.0 (3-11) BUN 19 H (7-18) mg/dl Creatinine 1.47 H D (0.6-1.2) mg/dl Est Cr Clr Drug Dosing 46.5 ml/min Est GFR ( Amer) 42.7 ml/min Est GFR (Non-Af Amer) 36.8 ml/min BUN/Creatinine Ratio 12.8 (10-20) Glucose 124 H (70-99) mg/dl Lactate (0.4-2.0) mmol/L Calcium 7.8 L (8.5-10.1) mg/dl Phosphorus (2.5-4.9) mg/dl Magnesium (1.8-2.4) mg/dl Total Bilirubin (0.2-1) mg/dl AST (15-37) U/L ALT (12-78) U/L Alkaline Phosphatase (45-117) U/L Total Protein (6.4-8.2) gm/dl Albumin (3.4-5.0) gm/dl Globulin (2.5-4.0) gm/dl Albumin/Globulin Ratio (0.9-2) Procalcitonin (0-0.5) ng/ml TSH (0.300-4.500) uIu/ml Urine Color Urine Appearance (Clear) Urine pH (4.5-7.5) Ur Specific [place] (1.000-1.030) Urine Protein (Negative) Urine Glucose (UA) (Negative) Urine Ketones (Negative) Urine Blood (Negative) Urine Nitrite (Negative) Urine Bilirubin (Negative) Urine Urobilinogen (Negative) Ur Leukocyte Esterase (Negative) SARS-CoV-2, RNA, NAAT (NEGATIVE) Administered Medications Discontinued Medications Sodium Chloride (Nss 1000ml) 1,000 mls @ 999 mls/hr IV .Q1H1M ONE Stop: 09/03/21 19:59 Last Infusion: 09/03/21 20:48 Dose: 0 mls/hr Documented by: [id number] Admin: 09/03/21 19:28 Dose: 999 mls/hr Documented by: [id number] Potassium Chloride (K Angelo / Wtr) 10 meq in 100 mls @ 100 mls/hr IV ONE ONE Stop: 09/03/21 19:58 Last Infusion: 09/03/21 20:47 Dose: 0 mls/hr Documented by: [id number] Admin: 09/03/21 19:28 Dose: 100 mls/hr Documented by: [id number] Cefepime HCl (Maxipime) 2,000 mg in 20 mls @ 5 mls/min IV NOW STA; Protocol Stop: 09/03/21 19:24 Last Admin: 09/03/21 20:38 Dose: 5 mls/min Documented by: [id number] Miscellaneous Information (Consult Pharmacy) 1 ea N/A NOW STA Stop: 09/03/21 20:44 Last Admin: 09/03/21 21:54 Dose: Not Given Documented by: [id number] Potassium Chloride (Potassium Chloride Crtab 20 Meq Tabcr) 40 meq PO NOW STA Stop: 09/03/21 21:24 Last Admin: 09/03/21 22:40 Dose: 40 meq Documented by: [id number] Imaging Data Radiologist's Impression: Chest X-Ray 09/03/21 19:21 XR chest 1V portable CLINICAL HISTORY: weak. Evaluate cardiopulmonary status COMPARISON STUDY: No previous studies for comparison. TECHNIQUE: 1 view of the chest FINDINGS: Single frontal view of the chest demonstrates the heart size to be mildly enlarged. Stable subclavian catheter is present on the left. There is a decreased inspiratory effort with elevation of the hemidiaphragms and crowding of the bronchovascular markings at the lung bases and centrally. The lungs are clear of alveolar opacities. There is no evidence for pleural effusion. There is no evidence for vascular congestion. There is no acute osseous pathology. IMPRESSION: There is a decreased inspiratory effort with otherwise no acute chest disease. ACT 112: Negative or not required by law. Electronically signed by: Jose Gupta M.D. 09/03/2021 7:53 PM Discharge Plan Visit Data Chief Complaint: Abnormal Labs/Diagnostic Testing Stated Complaint: ABNORMAL LAB ED Provider: Seferino Balderas Patient Disposition: Admitted As Inpatient Condition: Fair Prescriptions Prescriptions: No Action latanoprost 0.005 % drops 1 drp OPB PM Qty: 7.5 RF: 1 vitamin B complex [B Complex-Vitamin B12] Tablet 1 tab PO QAM RF: 0 allopurinol 100 mg tablet 100 mg PO QAM Qty: 90 RF: 3 atorvastatin [Lipitor] 20 mg tablet 20 mg PO QPM Qty: 90 RF: 3 carvedilol 25 mg tablet 25 mg PO BID Qty: 180 RF: 3 celecoxib [Celebrex] 100 mg capsule 100 mg PO QDL Qty: 90 RF: 3 losartan 100 mg tablet 100 mg PO QAM Qty: 90 RF: 3 triamterene-hydrochlorothiazid 37.5-25 mg tablet 1 tab PO QAM Qty: 90 RF: 3 pantoprazole [Protonix] 40 mg tablet,delayed release (DR/EC) 40 mg PO BID Qty: 180 RF: 3 ondansetron HCl 8 mg tablet 8 mg PO Q8H PRN (Reason: nausea and vomiting) Qty: 10 RF: 0 pregabalin [Lyrica] 75 mg capsule 75 mg PO BID RF: 0 guaifenesin [Mucinex] 600 mg tablet extended release 12hr 600 mg PO BID Qty: 60 RF: 3 montelukast [Singulair] 10 mg tablet 10 mg PO DAILY Qty: 30 RF: 2 hydroxyzine HCl 10 mg tablet 10 mg PO .5 TIMES A DAY PRN (Reason: Anxiety) RF: 0 Latuda 20 mg tablet 20 mg PO DAILY RF: 0 calcium carbonate-vitamin D3 [Calcium 600 + D(3)] 600 mg(1,500mg) -200 unit Tablet 1 tab PO BID RF: 0 aspirin 81 mg Tablet,Delayed Release (Dr/Ec) 81 mg PO QAM RF: 0 cholecalciferol (vitamin D3) [Vitamin D3] 2,000 unit Tablet 2,000 unit PO QPM RF: 0 Centrum Women 18-400 mg-mcg Tablet 1 tab PO QPM RF: 0 lamotrigine 100 mg tablet 100 mg PO BID RF: 0 nystatin 100,000 unit/gram ointment 1 applic topical DAILY PRN (Reason: Rash) RF: 0 triamcinolone acetonide 0.1 % ointment 1 applic topical DAILY PRN (Reason: Rash) RF: 0 estradiol 0.01 % (0.1 mg/gram) cream 1 appful vaginal QPM RF: 0 lamotrigine [Lamictal] 200 mg Tablet 200 mg PO QAM RF: 0 trazodone 50 mg tablet 100 - 150 mg PO HS PRN (Reason: Sleep) RF: 0 melatonin 5 mg tablet 10 - 15 mg PO HS RF: 0 Trulicity 0.75 mg/0.5 mL pen injector 0.75 mg subcut WK RF: 0 duloxetine 20 mg capsule,delayed release(DR/EC) 20 mg PO QAM RF: 0 famotidine 20 mg Tablet 20 mg PO BID RF: 0 midodrine 2.5 mg Tablet 5 mg PO TID@0800,1200,1700 7 Days Qty: 21 RF: 0 loperamide 2 mg Capsule 2 mg PO Q24H PRN (Reason: loose stool) 7 Days Qty: 7 RF: 0 prochlorperazine maleate 10 mg tablet 10 mg PO Q6 PRN (Reason: Nausea) RF: 0 escitalopram oxalate 10 mg tablet 10 mg PO QAM RF: 0
[2021-09-03 18:38] LABS: Mean Corpuscular Hgb Conc 34.8 g/dL (32-36); Mean Platelet Volume 10.1 fL (7.4-10.4); Platelet Count 232 K/uL (130-400)
[2021-09-03 18:55] LABS: Albumin Level 3.1 gm/dl (3.4-5.0); BUN Creatinine Ratio 9.4 (10-20); Calcium 8.4 mg/dl (8.5-10.1); Creatinine Clr Calc Pharmacy 35.8 ml/min; Est GFR (African American) 31.1 ml/min; Est GFR (Non-African American) 26.8 ml/min; Magnesium 2.2 mg/dl (1.8-2.4)
[2021-09-03] MEDS ORDERED: SODIUM CHLORIDE 0.9% 1000ML 1,000 ML IV ONE (18:59)
[2021-09-03] MEDS ORDERED: POTASSIUM CHLORIDE / WTR 10 MEQ/100 ML PLCT IV ONE (18:59)
[2021-09-03 19:06] LABS: Albumin Globulin Ratio 0.8 (0.9-2); Bilirubin,Total 0.5 mg/dl (0.2-1); Globulin 3.7 gm/dl (2.5-4.0); Thyroid Stimulating Hormone 0.726 uIu/ml (0.300-4.500); Total Protein 6.8 gm/dl (6.4-8.2)
[2021-09-03 19:09] LABS: Hematocrit (blood only) 33.3 % (37-47); Hemoglobin 11.6 g/dL (12.0-16.0); Mean Corpuscular Hemoglobin 28.2 pg (25-34); RDW Coefficient of Variation 13.9 % (11.5-14.5); RDW Standard Deviation 41.3 fL (36.4-46.3); Red Blood Count 4.11 M/uL (4.2-5.4); White Blood Count 21.05 K/uL (4.8-10.8)
[2021-09-03 19:11] LABS: ALC (manual) 0.36 K/uL (1.2-3.4); ANC (manual) 19.24 K/uL (1.4-6.5); Dohle Bodies 1+; Lymphocytes # (manual) 0.36 K/uL (1.2-3.4); Lymphocytes % (manual) 1.7 %; Monocytes # (manual) 0.91 K/uL (0.11-0.59); Monocytes % (manual) 4.3 %; Myelocytes # (manual) 0.55 K/uL (0-0); Myelocytes % (manual) 2.6 %; Neutrophils # (manual) 19.24 K/uL (1.4-6.5); Neutrophils % (manual) 91.4 %; Toxic Granulation 2+
[2021-09-03] MEDS ORDERED: CEFEPIME 2,000 MG/20 ML VIAL IV STA (19:21)
--- NOTE | 2021-09-03 19:54 | XRay Report ---
XR chest 1V portable CLINICAL HISTORY: weak. Evaluate cardiopulmonary status COMPARISON STUDY: No previous studies for comparison. TECHNIQUE: 1 view of the chest FINDINGS: Single frontal view of the chest demonstrates the heart size to be mildly enlarged. Stable subclavian catheter is present on the left. There is a decreased inspiratory effort with elevation of the hemid iaphragms and crowding of the bronchovascular markings at the lung bases and centrally. The lungs are clear of alveolar opacities. There is no evidence for pleural effusion. There is no evidence for vas cular congestion. There is no acute osseous pathology. IMPRESSION: There is a decreased inspiratory effort with otherwise no acute chest disease. ACT 112: Negative or not required by law. Electronically signed by: Jose Gupta M.D. 09/03/2021 7:53 PM
[2021-09-03] MEDS ORDERED: CONSULT PHARMACY STA (20:43)
[2021-09-03] MEDS ORDERED: POTASSIUM CHLORIDE CRTAB 20 MEQ TABCR PO STA (21:23)
[2021-09-03 21:29] LABS: Appearance Urine Clear (Clear); Bilirubin Urine Negative (Negative); Blood Urine Negative (Negative); Color Urine Yellow; Glucose Urine UA Negative (Negative); Ketones Urine Negative (Negative); Leukocyte Esterase Urine Negative (Negative); Nitrite Urine Negative (Negative); Protein Urine Negative (Negative); Specific Gravity Urine 1.004 (1.000-1.030); Urobilinogen Urine Negative (Negative); pH Urine 5.5 (4.5-7.5)
--- NOTE | 2021-09-03 23:05 | History and Physical Report ---
DATE OF ADMISSION: 09/03/2021. CHIEF COMPLAINT: Hyponatremia. HISTORY OF PRESENT ILLNESS: This is a 66-year-old female with a past medical history significant for breast cancer, status post right lumpectomy in 2004 . Had recurrence of breast cancer and started on chemo ands first treatment of chemotherapy on 08/24/2021 with Taxotere and cyclophosphamide and she also received filgrastim prior to the chemo and she was recently in the hospital From 08/27 to 08/31/2021 for hyponatremia.Prior to that hospitalization a few days before she was on Cymbalta. During hospitalization Cymbalta was held and was give fluids and her sodium improved to 135 . Followed with Family doctor today.As per patient the family doctor discontinued amlodipine and cut back on the dose of losartan to 50 mg and Maxzide to half the dose and midodrine was increased to 2.5 mg in a.m. and 5 mg in noon and evening and her labs were drawn and labs showed sodium of 124 and she was advised to come to the hospital. The patient says she is feeling weak and tired, poor appetite. Was nauseous and vomited a couple of times today. No diarrhea. Currently, she has some headache, no blurred visions, no earache, no runny nose, no sore throat, no cough, no fevers. No difficulty swallowing. No chest pain, no shortness of breath. She had abdominal discomfort in the afternoon, but currently resolved. Denies any diarrhea. Somewhat constipated. Denied any blood in the stool or black stools. Normal bladder movements. No rash. Ambulating okay. ALLERGIES: AMITRIPTYLINE, HYDROCODONE, PROZAC, HALOPERIDOL, XOPENEX, PERPHENAZINE, LISINOPRIL. PAST MEDICAL HISTORY: As mentioned above. PAST SURGICAL HISTORY: Amputation of left toe, tunneled catheter insertion, laparoscopic cholecystectomy, left hammertoe surgery, right partial mastectomy in 2007, right shoulder arthroscopic surgery, left total knee replacement. MEDICATIONS: The patient is on allopurinol 100 mg p.o. daily, aspirin 81 mg p.o. daily, atorvastatin 20 mg p.o. daily, calcium 600 plus D 1 tablet p.o. b.i.d., Coreg 25 mg p.o. b.i.d., celecoxib 100 mg p.o. daily, Centrum Women 1 tablet p.o. daily, vitamin D 2000 units p.o. p.m., duloxetine 20 mg p.o. a.m., Lexapro 10 mg p.o. a.m., estradiol 1 application vaginal q. p.m., famotidine 20 mg p.o. b.i.d., guaifenesin 600 mg p.o. b.i.d., hydroxyzine 10 mg p.o. p.r.n., Lamictal 100 mg p.o. b.i.d. and Lamictal 200 mg p.o. a.m., latanoprost ophthalmic drops p.m., loperamide 2 mg p.o. daily p.r.n., losartan currently 50 mg p.o. daily, Latuda 20 mg p.o. daily, melatonin 10-50 mg p.o. at bedtime, midodrine 2.5 mg at 8:00 a.m. and 5 mg at 12 and 5 p.m., montelukast 10 mg p.o. daily, nystatin topical daily p.r.n., Zofran 8 mg p.o. q. 8 hours p.r.n., Protonix 40 mg p.o. b.i.d., pregabalin 75 mg p.o. b.i.d., prochlorperazine 10 mg p.o. 6 hours p.r.n., trazodone 100 mg p.o. at bedtime, triamcinolone topical daily, Maxzide 37.5/25 mg half tablet daily, Trulicity 0.75 mg subcutaneous weekly, vitamin B complex 1 tablet p.o. a.m. FAMILY HISTORY: Significant for father had colon polyps, mother had hypertension, hyperlipidemia, stroke. SOCIAL HISTORY: Single, no smoking, no alcohol, no drug use. REVIEW OF SYSTEMS: As per HPI. Rest of the review of systems is negative. PHYSICAL EXAMINATION: GENERAL: The patient is obese, not in acute distress. VITAL SIGNS: Temperature 36.4, pulse 76, respiratory rate 16, blood pressure 129/60, oxygen 95% on room air. HEENT: Pupils equal, round and reactive to light. Oral mucosa moist. NECK: No JVD, no neck masses. CARDIOVASCULAR: S1 and S2 heard. Regular rate and rhythm. No murmur, no gallop. RESPIRATORY SYSTEM: Normal AP diameter. No accessory muscle use. No wheezing, no crackles. ABDOMEN: Soft, bowel sounds present, nontender, no distention. CENTRAL NERVOUS SYSTEM: Cranial nerves II-XII grossly intact, nonfocal. EXTREMITIES: No edema, no erythema. LABORATORY DATA: WBC 21, hemoglobin 11.6, hematocrit 33.3, platelets 232. Sodium 127, potassium 3, chloride 92, bicarbonate 22, BUN 18, creatinine 1.9, serum glucose 122, calcium 8.4, phosphorus 6, magnesium 2.2, total bilirubin 0.5, AST 12, ALT 22, alkaline phosphatase 98. Procalcitonin pending. TSH 0.76. IMAGING DATA: Chest x-ray, no acute disease. EKG: Normal sinus rhythm at a rate of 77, possible left atrial enlargement, nonspecific T-wave abnormalities. ASSESSMENT AND PLAN: This 66-year-old female was getting chemo for breast cancer presents with hyponatremia.. 1. Hyponatremia. Hyponatremia could be from her chemotherapy, could be because of recent start of Cymbalta, will hold Cymbalta. We will give gentle fluids, repeat BMP. Consult Nephrology in am Follow urine sodium osmolarity and urine sodium levels and serum osmolality. Gentle fluids. Close monitor of sodium levels. 2. Hypokalemia, replace. 3. Acute kidney injury. Baseline creatinine 0.7, present creatinine of 1.9. Holding losartan and Maxzide. Avoid nephrotoxic agents. Getting fluids. Follow the repeat labs in the a.m. Nephrology consulted. 4. Leukocytosis, etiology unclear. ER, started on empiric antibiotics cefepime and also ordered cultures, we will followup, could be possible because of recent administration of filgrastim prior to chemo. 5. History of breast cancer, follow with Hem/Onc. 6. Diabetes. Hold her home medication. Placed on insulin sliding scale. 7. Diabetic peripheral neuropathy. Continue Lyrica. 8. Hyperlipidemia. Continue statin. 9. Gastroesophageal reflux disease. Continue omeprazole. 10. Obesity, needs counselling. 11. Hypertension. Currently, her amlodipine was stopped by the PCP and her Maxzide and losartan dose was cut into half. Will continue Coreg, but we are currently holding Maxzide and losartan for alana.. Monitor the blood pressure. 12. History of bipolar disorder. Continue Lamictal. She is also on Lexapro, Cymbalta. Currently, holding Cymbalta, which was recently started because of hyponatremia. She follows with Psychiatry at [facility]. Continue trazodone at bedtime and hydroxyzine as needed. 13. Gout. Continue allopurinol. 14. Deep venous thrombosis prophylaxis. Placed on Lovenox. DISPOSITION: Closely monitor in the med tele. PT/OT prior to discharge. Social service to help with discharge planning. Job ID: [id number] [facility] CENTERJaskaran
[2021-09-03 23:44] LABS: BUN Creatinine Ratio 12.8 (10-20); Calcium 7.8 mg/dl (8.5-10.1); Creatinine Clr Calc Pharmacy 46.5 ml/min; Est GFR (African American) 42.7 ml/min; Est GFR (Non-African American) 36.8 ml/min; Potassium 2.9 mmol/L (3.5-5.1)
[2021-09-04] MEDS ORDERED: TRIAMCINOLONE ACET 0.1% OINT 15 GM TUBE TOP PRN (03:01)
[2021-09-04] MEDS ORDERED: lamoTRIgine 100 MG TAB PO SCH (03:01)
[2021-09-04] MEDS ORDERED: NITROGLYCERIN SL 0.4 MG/TAB TAB SL PRN (03:01)
[2021-09-04] MEDS ORDERED: ACETAMINOPHEN 325 MG TAB PO PRN (03:01)
[2021-09-04] MEDS ORDERED: SODIUM CHLORIDE 0.9% 1000ML 1,000 ML IV SCH (03:01)
[2021-09-04] MEDS ORDERED: ONDANSETRON 4 MG OD TAB PO PRN (03:01)
[2021-09-04] MEDS ORDERED: ONDANSETRON INJ 2 MG/ML 2 ML VIAL IV PRN (03:01)
[2021-09-04] MEDS ORDERED: NYSTATIN OINT 15 GM TUBE EXT PRN (03:01)
[2021-09-04] MEDS ORDERED: HEPARIN 100 UNIT/ML 5ML FLUSH FLUSH PRN (04:16)
[2021-09-04] MEDS: ATORVASTATIN 20 MG TAB PO SCH ×2 (05:08→20:12)
[2021-09-04] MEDS: FAMOTIDINE 20 MG TAB PO SCH ×3 (05:09→20:14)
[2021-09-04] MEDS: CEROVITE ADV FORMULA TAB PO SCH ×2 (05:09→20:15)
[2021-09-04] MEDS: PANTOprazole 40 MG TAB PO SCH ×3 (05:09→20:16)
[2021-09-04] MEDS: carvediloL 25 MG TAB PO SCH ×3 (05:09→20:13)
[2021-09-04] MEDS: CALCIUM 600MG + VIT D 400 IU TAB PO SCH ×3 (05:10→20:13)
[2021-09-04] MEDS: CHOLECALCIFEROL 1,000 UNITS 25 MCG TAB PO SCH ×2 (05:10→20:14)
[2021-09-04] MEDS: MELATONIN 3 MG TAB PO SCH ×2 (05:12→22:05)
[2021-09-04] MEDS: LATANOPROST 0.005% OP SOLN 2.5 ML BTL OPB SCH ×2 (05:13→20:14)
[2021-09-04] MEDS: guaiFENesin 600 MG TABCR PO SCH ×3 (05:13→20:22)
[2021-09-04] MEDS: PREGABALIN 75 MG CAP PO SCH ×2 (05:23→20:22)
[2021-09-04 05:56] LABS: Calcium 8.3 mg/dl (8.5-10.1); Creatinine Clr Calc Pharmacy 50.3 ml/min; Est GFR (African American) 46.9 ml/min; Est GFR (Non-African American) 40.4 ml/min; Magnesium 2.3 mg/dl (1.8-2.4); Potassium 3.2 mmol/L (3.5-5.1)
[2021-09-04 06:44] LABS: Hemoglobin 10.5 g/dL (12.0-16.0); Mean Corpuscular Hemoglobin 28.1 pg (25-34); Mean Corpuscular Volume 80.2 fL (80-100); Mean Platelet Volume 9.9 fL (7.4-10.4); Platelet Count 216 K/uL (130-400); RDW Coefficient of Variation 13.8 % (11.5-14.5); RDW Standard Deviation 40.5 fL (36.4-46.3); Red Blood Count 3.74 M/uL (4.2-5.4); White Blood Count 9.16 K/uL (4.8-10.8)
[2021-09-04 06:47] LABS: Basophils # (auto) 0.03 K/uL (0-0.2); Basophils % (auto) 0.3 %; Eosinophils # (auto) 0.01 K/uL (0-0.5); Eosinophils % (auto) 0.1 %; Immature Granulocytes # (auto) 0.65 K/uL (0.00-0.02); Immature Granulocytes % (auto) 7.1 %; Lymphocytes # (auto) 0.46 K/uL (1.2-3.4); Monocytes # (auto) 0.83 K/uL (0.11-0.59); Monocytes % (auto) 9.1 %; Neutrophils # (auto) 7.18 K/uL (1.4-6.5); Neutrophils % (auto) 78.4 %; Toxic Granulation 2+
[2021-09-04] MEDS: hydrOXYzine HCl 10 MG TAB PO PRN (07:11)
[2021-09-04] MEDS: DEXTROSE 5% 1,000 ML IV SCH ×2 (07:11→17:17)
--- NOTE | 2021-09-04 07:28 | Electrocardiogram Report ---
Test Reason : Blood Pressure : / mmHG Vent. Rate : 075 BPM Atrial Rate : 075 BPM P-R Int : 186 ms QRS Dur : 096 ms QT Int : 386 ms P-R-T Axes : 057 017 094 degrees QTc Int : 431 ms Normal sinus rhythm Possible Left atrial enlargement Nonspecific T wave abnormality Abnormal ECG When compared with ECG of 28-AUG-2021 06:15, Nonspecific T wave abnormality, worse in Lateral leads Confirmed by Kevin Daugherty ([id number]) on 09/04/2021 7:27:51 AM Referred By: Ildefonso Langford Confirmed By:Jaime Daugherty
[2021-09-04 07:33] LABS: Estimated Average Glucose 140 mg/dl; Hemoglobin A1C 6.5 % (4.5-5.6)
[2021-09-04] MEDS ORDERED: POTASSIUM CHLORIDE CRTAB 20 MEQ TABCR PO STA (08:57)
[2021-09-04] MEDS: MIDODRINE HCL 2.5 MG TAB PO SCH ×3 (09:01→17:18)
[2021-09-04] MEDS: CEFEPIME 2,000 MG in SYRINGE 0 ML IV SCH ×2 (09:01→20:44)
[2021-09-04] MEDS: INSULIN ASPART 100 UNITS/ML 3 ML PEN SC SCH ×4 (09:01→22:23)
[2021-09-04] MEDS: allopurinoL 100 MG TAB PO SCH (09:03)
[2021-09-04] MEDS: ASPIRIN 81 MG ECTAB PO SCH (09:03)
[2021-09-04] MEDS: ESCITALOPRAM OXALATE 10 MG TAB PO SCH (09:04)
[2021-09-04] MEDS: ENOXAPARIN INJ 40 MG/0.4 ML SYR SQ SCH (09:04)
[2021-09-04] MEDS: LURASIDONE HCL 40 MG TAB PO SCH (09:05)
[2021-09-04] MEDS: MONTELUKAST SODIUM 10 MG TABLET PO SCH (09:05)
[2021-09-04] MEDS: lamoTRIgine 100 MG TAB PO SCH ×3 (09:05→19:23)
[2021-09-04] MEDS: VITAMIN B COMPLEX TAB PO SCH (09:06)
[2021-09-04 09:26] LABS: BUN Creatinine Ratio 13.3 (10-20); Creatinine Clr Calc Pharmacy 52.3 ml/min; Est GFR (African American) 49.5 ml/min; Est GFR (Non-African American) 42.7 ml/min; Potassium 3.2 mmol/L (3.5-5.1)
--- NOTE | 2021-09-04 10:34 | XRay Report ---
KUB CLINICAL HISTORY: Nausea and vomiting. Constipation. FINDINGS: 3 AP supine abdominal radiographs are correlated with PET/CT dated 07/21/2021. There is a n onobstructed abdominal bowel gas pattern. Moderate fecal retention is seen throughout the colon. No e vidence of intraperitoneal free air is seen on these supine images. Cholecystectomy clips are noted i n the right upper quadrant. There are no abnormal abdominal calcifications. Phleboliths are seen in t he pelvis. The skeletal structures are osteopenic and appear intact. There is mild to moderate lumbos acral spondylosis. IMPRESSION: Moderate constipation. Electronically signed by: Seferino Ruiz M.D. 09/04/2021 10:32 AM
[2021-09-04] MEDS ORDERED: SENNOSIDES 8.8 MG/5 ML UDC PO PRN (10:43)
[2021-09-04] MEDS ORDERED: bisacodyL 10 MG SUPP PR STA (10:43)
--- NOTE | 2021-09-04 12:43 | Hospitalist Progress Note ---
Date of Service September 04, 2021 Assessment & Plan (1) Weakness: (2) Hyponatremia: (3) Malignant neoplasm of breast: (4) Constipation: Plan: Hyponatremia improving. SERGIO improving. Creatinine is 1.3 this morning Continue IV fluids and monitor sodium. Hypokalemia improving. Continue to replete and monitor Based on labs patient appears dry. Acknowledges vomiting at home with poor oral intake and constipation. Portable x-ray abdomen showing constipation. Bowel regimen ordered Continue to hold losartan and triamterene. Blood pressure stable. Continue Lamictal. Cymbalta on hold. However will plan to resume this. Continue home Lyrica, omeprazole. Hold home antidiabetic's and manage with sliding scale per protocol. Leukocytosis resolved. Low suspicion for infection based on history. May also be from dehydration as all cell lines dropped with IV fluids. Other possibilities patient recently got Filgastrim per H&P Admission and Anticipated Discharge Date Admission Date: September 03, 2021 Subjective 66-year-old woman with history of breast cancer status post right lumpectomy in 2004, recurrence on chemo with last chemo 08/24/2021, recent hospitalization and discharged on 08/31/2021 for hyponatremia who was called in to the hospital for hyponatremia after PCP labs and was also reporting nausea and vomiting at home. Being managed for hyponatremia, acute kidney injury. Patient seen and examined. Reports no nausea vomiting at this time. Denies abdominal pain. Reports constipation. Has not had bowel movement since discharge. Denies dysuria, frequency, urgency Denies fever, chills Denies chest pain, cough, shortness of breath. Reports weakness. Physical Exam Constitutional: + well hydrated; no acute distress Eyes: PERRL, conjunctivae normal, anicteric sclerae ENMT: external ear and nose normal, oropharynx normal Respiratory: normal respiratory effort, lungs clear to auscultation Cardiovascular: Rate/Rhythm: regular rate and regular rhythm S1 S2 Gastrointestinal (Abdomen): normal bowel sounds, soft, nontender, no hepatosplenomegaly Musculoskeletal: no cyanosis or clubbing, extremities motor strength 5/5 Neurologic: PERRL, EOMI, accommodation nl, no face palsy, no dysarthria Psychiatric: A+Ox3, euthymic affect Results & Data Results & Data ([facility]) Vital Signs (Past 12 Hours) Vital Signs Temp Pulse Pulse Resp BP Pulse Ox 09/04/21 11:56 36.9 C 71 16 109/72 96 09/04/21 10:40 71 09/04/21 07:47 36.4 C L 69 16 108/71 96 09/04/21 05:02 73 09/04/21 03:53 36.6 C 72 20 142/78 H 96 09/04/21 03:10 70 15 129/65 95 09/04/21 01:21 74 15 121/63 95 Laboratory Results Abnormal lab results 09/03/21 09/03/21 09/03/21 Range/Units 18:25 18:25 20:00 WBC 21.05 H (4.8-10.8) K/uL RBC 4.11 L (4.2-5.4) M/uL Hgb 11.6 L (12.0-16.0) g/dL Hct 33.3 L (37-47) % Neut # (Auto) (1.4-6.5) K/uL Lymph # (Auto) (1.2-3.4) K/uL Cascade # (Auto) (0.11-0.59) K/uL Immature Gran # (Auto) (0.00-0.02) K/uL Neutrophils # (Manual) 19.24 H (1.4-6.5) K/uL Total Absolute Neuts 19.24 H (1.4-6.5) K/uL Lymphocytes # (Manual) 0.36 L (1.2-3.4) K/uL Total Abs Lymphocytes 0.36 L (1.2-3.4) K/uL Monocytes # (Manual) 0.91 H (0.11-0.59) K/uL Myelocytes # (Manual) 0.55 H (0-0) K/uL Sodium 127 L (136-145) mmol/L Potassium 3.0 L (3.5-5.1) mmol/L Chloride 92 L (98-107) mmol/L Anion Gap 13.0 H (3-11) BUN (7-18) mg/dl Creatinine 1.91 H (0.6-1.2) mg/dl BUN/Creatinine Ratio 9.4 L (10-20) Glucose 122 H (70-99) mg/dl POC Glucose (70-99) mg/dl Hemoglobin A1c (4.5-5.6) % Osmolality 395 H* (280-300) mOsm/kg Calcium 8.4 L (8.5-10.1) mg/dl Phosphorus 6.0 H (2.5-4.9) mg/dl AST 12 L (15-37) U/L Albumin 3.1 L (3.4-5.0) gm/dl Albumin/Globulin Ratio 0.8 L (0.9-2) Urine Osmolality (500-800) mOsm/kg 09/03/21 09/04/21 09/04/21 Range/Units 23:11 03:48 05:21 WBC (4.8-10.8) K/uL RBC 3.74 L (4.2-5.4) M/uL Hgb 10.5 L (12.0-16.0) g/dL Hct 30.0 L (37-47) % Neut # (Auto) 7.18 H (1.4-6.5) K/uL Lymph # (Auto) 0.46 L (1.2-3.4) K/uL Cascade # (Auto) 0.83 H (0.11-0.59) K/uL Immature Gran # (Auto) 0.65 H (0.00-0.02) K/uL Neutrophils # (Manual) (1.4-6.5) K/uL Total Absolute Neuts (1.4-6.5) K/uL Lymphocytes # (Manual) (1.2-3.4) K/uL Total Abs Lymphocytes (1.2-3.4) K/uL Monocytes # (Manual) (0.11-0.59) K/uL Myelocytes # (Manual) (0-0) K/uL Sodium 132 L (136-145) mmol/L Potassium 2.9 L (3.5-5.1) mmol/L Chloride (98-107) mmol/L Anion Gap (3-11) BUN 19 H (7-18) mg/dl Creatinine 1.47 H D (0.6-1.2) mg/dl BUN/Creatinine Ratio (10-20) Glucose 124 H (70-99) mg/dl POC Glucose 112 H (70-99) mg/dl Hemoglobin A1c (4.5-5.6) % Osmolality (280-300) mOsm/kg Calcium 7.8 L (8.5-10.1) mg/dl Phosphorus (2.5-4.9) mg/dl AST (15-37) U/L Albumin (3.4-5.0) gm/dl Albumin/Globulin Ratio (0.9-2) Urine Osmolality (500-800) mOsm/kg 09/04/21 09/04/21 09/04/21 Range/Units 05:21 05:21 07:29 WBC (4.8-10.8) K/uL RBC (4.2-5.4) M/uL Hgb (12.0-16.0) g/dL Hct (37-47) % Neut # (Auto) (1.4-6.5) K/uL Lymph # (Auto) (1.2-3.4) K/uL Cascade # (Auto) (0.11-0.59) K/uL Immature Gran # (Auto) (0.00-0.02) K/uL Neutrophils # (Manual) (1.4-6.5) K/uL Total Absolute Neuts (1.4-6.5) K/uL Lymphocytes # (Manual) (1.2-3.4) K/uL Total Abs Lymphocytes (1.2-3.4) K/uL Monocytes # (Manual) (0.11-0.59) K/uL Myelocytes # (Manual) (0-0) K/uL Sodium 134 L (136-145) mmol/L Potassium 3.2 L (3.5-5.1) mmol/L Chloride (98-107) mmol/L Anion Gap (3-11) BUN 19 H (7-18) mg/dl Creatinine 1.36 H (0.6-1.2) mg/dl BUN/Creatinine Ratio (10-20) Glucose 111 H (70-99) mg/dl POC Glucose 109 H (70-99) mg/dl Hemoglobin A1c 6.5 H (4.5-5.6) % Osmolality (280-300) mOsm/kg Calcium 8.3 L (8.5-10.1) mg/dl Phosphorus (2.5-4.9) mg/dl AST (15-37) U/L Albumin (3.4-5.0) gm/dl Albumin/Globulin Ratio (0.9-2) Urine Osmolality (500-800) mOsm/kg 09/04/21 09/04/21 09/04/21 Range/Units 08:56 09:45 11:28 WBC (4.8-10.8) K/uL RBC (4.2-5.4) M/uL Hgb (12.0-16.0) g/dL Hct (37-47) % Neut # (Auto) (1.4-6.5) K/uL Lymph # (Auto) (1.2-3.4) K/uL Cascade # (Auto) (0.11-0.59) K/uL Immature Gran # (Auto) (0.00-0.02) K/uL Neutrophils # (Manual) (1.4-6.5) K/uL Total Absolute Neuts (1.4-6.5) K/uL Lymphocytes # (Manual) (1.2-3.4) K/uL Total Abs Lymphocytes (1.2-3.4) K/uL Monocytes # (Manual) (0.11-0.59) K/uL Myelocytes # (Manual) (0-0) K/uL Sodium (136-145) mmol/L Potassium 3.2 L (3.5-5.1) mmol/L Chloride (98-107) mmol/L Anion Gap (3-11) BUN (7-18) mg/dl Creatinine 1.30 H (0.6-1.2) mg/dl BUN/Creatinine Ratio (10-20) Glucose 122 H (70-99) mg/dl POC Glucose 130 H (70-99) mg/dl Hemoglobin A1c (4.5-5.6) % Osmolality (280-300) mOsm/kg Calcium 8.0 L (8.5-10.1) mg/dl Phosphorus (2.5-4.9) mg/dl AST (15-37) U/L Albumin (3.4-5.0) gm/dl Albumin/Globulin Ratio (0.9-2) Urine Osmolality 184 L (500-800) mOsm/kg (1) Constipation Constipation type: chronic idiopathic constipation Qualified Code(s): K59.04 - Chronic idiopathic constipation
[2021-09-04 13:16] LABS: BUN Creatinine Ratio 14.9 (10-20); Calcium 8.2 mg/dl (8.5-10.1); Creatinine Clr Calc Pharmacy 55.8 ml/min; Est GFR (African American) 53.5 ml/min; Est GFR (Non-African American) 46.1 ml/min; Potassium 3.4 mmol/L (3.5-5.1)
--- NOTE | 2021-09-04 14:26 | Nephrology Consultation ---
Date of Consultation September 04, 2021 Assessment & Plan (1) Hyponatremia: chronic hyponatremia which has worsened from intermittent low 130s to consistently in mid 120s this month in the setting of hctz use, nsaid use, recurrence of BRCA, CTX as well as n/v at home after CTX recently resumed. improved markedly w/ holding cymbalta, nsaid and 1-2L NS -recheck serum osmolality (now normalized; pretty sure do not believe admission serum osms) and given that she's on hypotonic fluid recheck bmp > await 1700 labs; may need to change away from D5 depending on results -agree w/ holding cymbalta -needs to be off of hctz most likely or at least to reduce dose -- currently on hold in hospital -cont to hold nsaid > would ideally find non nsaid based pain medication regimen as OP -will give 40 mEQ po K x 1 this evening (2) Acute renal failure: presenting creatinien 1.9; baseline creatinine 0.7-0.8. prerenal at least in part and improving w/ IV fluids though plateau'd at 1.2-1.3 History of Present Illness Reason for Consultation: hyponatremia Requesting Physician: Dr Palacios Attending Physician: Maura Palacios MD History of Present Illness 66 y/o F whom I'm asked to see for hyponatremia was admitted yesterday for same after failing outpatient management. Already hospitalized once this month 08/27-08/31 for hyponatremia w/ presenting sNa 126; she had improvement in sodium during that stay to 135 by holding cymbalta which she had recently started and giving fluids. We have records in [facility] [place] and [place] back to 01/2020 > she has had intermittent low sodium in this timeframe usually in low 130s if at all; however hyponatremia worsened w/ values consistently in 120s for the first time this month. Sent yesterday for sNa 124 after stopping amlodipine, lowering losartan, halving maxzide and increasing midodrine did not resolve /improve it. 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 PMH includes BRCA s/p 2005 R lumpectomy and w/ recurrence, HTN w/ autonomic dysfunction, chronic hyponatremia, depression/anxiety/PTSD, DM, chronic peripheral edema barbra R leg. She recently resumed CTX for BRCA and received taxotere, cyclophosphamide for the first time 08/24/21. Recently Pt c/o weakness, N on presentation and a few bouts of emesis. Also transient abdominal pain. She takes celebrex and hctz as OP. Had 2L NS since arrival and K repletion; currently on D5W. feeling much improved this evenign. CC is swinging between constipation and then after tries to treat that has significant diarrhea. states when she came in could not stand or roll in bed on her own; feels muhc improve;d norally ambulates outside w/o any support though uses rollator in side. Allergies Allergy/AdvReac Type Severity Reaction Status Date / Time amitriptyline Allergy Intermediate manic Verified 09/03/21 17:18 hydrocodone Allergy Intermediate Gastrointestinal Verified 09/03/21 17:18 Upset; "Too Sedating" fluoxetine [From Prozac] Allergy Unknown Unverified 09/03/21 17:18 haloperidol [From Haldol] Allergy Unknown Unverified 09/03/21 17:18 levalbuterol [From Xopenex] AdvReac Intermediate Jittery/anx Verified 09/03/21 17:18 ious perphenazine AdvReac Intermediate "caused Verified 09/03/21 17:18 the shakes" lisinopril AdvReac Mild Cough Verified 09/03/21 17:18 Home Medications Medication Instructions Recorded Confirmed Type aspirin 81 mg tablet,delayed 81 mg PO QAM 10/27/19 09/03/21 History release calcium carbonate 600 mg (1,500 1 tab PO BID 10/27/19 09/03/21 History mg)-vitamin D3 200 unit tablet (Calcium 600 + D(3)) cholecalciferol (vitamin D3) 50 2,000 unit PO QPM 10/27/19 09/03/21 History mcg (2,000 unit) tablet (Vitamin D3) multivitamin-ferrous 1 tab PO QPM 10/27/19 09/03/21 History fumarate-folic acid 18 mg-400 mcg tablet (Centrum Women) latanoprost 0.005 % eye drops 1 drp OPB PM #7.5 ml 07/02/20 09/03/21 Rx lamotrigine 200 mg tablet 200 mg PO QAM 12/31/20 09/03/21 History (Lamictal) trazodone 50 mg tablet 100 - 150 mg PO HS PRN 12/31/20 09/03/21 History lamotrigine 100 mg tablet 100 mg PO BID 02/11/21 09/03/21 History hydroxyzine HCl 10 mg tablet 10 mg PO .5 TIMES A DAY PRN tab 03/11/21 09/03/21 History melatonin 5 mg tablet 10 - 15 mg PO HS tab 03/24/21 09/03/21 History vitamin B complex (B 1 tab PO QAM 03/26/21 09/03/21 History Complex-Vitamin B12) estradiol 1 appful VAGINAL QPM 05/11/21 09/03/21 History nystatin 100,000 unit/gram topical 1 applic TOPICAL DAILY PRN 05/11/21 09/03/21 History ointment triamcinolone acetonide 0.1 % 1 applic TOPICAL DAILY PRN 05/11/21 09/03/21 History topical ointment allopurinol 100 mg tablet 100 mg PO QAM #90 tab 05/31/21 09/03/21 Rx atorvastatin 20 mg tablet (Lipitor) 20 mg PO QPM #90 tab 05/31/21 09/03/21 Rx carvedilol 25 mg tablet 25 mg PO BID #180 tab 05/31/21 09/03/21 Rx celecoxib 100 mg capsule (Celebrex) 100 mg PO QDL #90 cap 05/31/21 09/03/21 Rx losartan 100 mg tablet 100 mg PO QAM #90 tab 05/31/21 09/03/21 Rx triamterene 37.5 1 tab PO QAM #90 tab 05/31/21 09/03/21 Rx mg-hydrochlorothiazide 25 mg tablet pantoprazole 40 mg tablet,delayed 40 mg PO BID #180 tab 06/21/21 09/03/21 Rx release (Protonix) lurasidone 20 mg tablet (Latuda) 20 mg PO DAILY 06/30/21 09/03/21 History pregabalin 75 mg capsule (Lyrica) 75 mg PO BID cap 07/01/21 09/03/21 History guaifenesin 600 mg tablet, 600 mg PO BID #60 tab 07/07/21 09/03/21 Rx extended release 12 hr (Mucinex) montelukast 10 mg tablet 10 mg PO DAILY #30 tab 09/29/21 11/26/21 Rx (Singulair) ondansetron HCl 8 mg tablet 8 mg PO Q8H PRN #10 tab 08/03/21 09/03/21 Rx dulaglutide 0.75 mg/0.5 mL 0.75 mg SUBCUT WK 08/27/21 09/03/21 History subcutaneous pen injector (Trulicity) duloxetine 20 mg capsule,delayed 20 mg PO QAM 08/27/21 09/03/21 History release famotidine 20 mg tablet 20 mg PO BID 08/27/21 09/03/21 History loperamide 2 mg capsule 2 mg PO Q24H PRN 7 Days #7 cap 08/31/21 09/03/21 Rx midodrine 2.5 mg tablet 5 mg PO TID@0800,1200,1700 7 Days 08/31/21 09/03/21 Rx #21 tab escitalopram oxalate 10 mg tablet 10 mg PO QAM 09/03/21 09/03/21 History prochlorperazine maleate 10 mg 10 mg PO Q6 PRN 09/03/21 09/03/21 History tablet Patient History Medical History Abdominal pain Abnormal PFT Allergic rhinitis Anxiety Ataxia Quach's cyst, unruptured Bipolar disorder Cerebral microvascular disease PT UNAWARE Chronic cough Concussion in Depression Diabetes type 2, uncontrolled Diabetic peripheral neuropathy associated with type 2 diabetes mellitus Dizziness, nonspecific Dry cough Dyslipidemia GERD (gastroesophageal reflux disease) Glaucoma Gout History of panic attacks History of right breast cancer 2013--sx/radiation Hypertension Loss of protective sensation of skin of foot Meniere's disease MVP (mitral valve prolapse) ?hx per records/no murmur noted per multiple recent [facility] PCP physical exams Osteoarthritis Peripheral edema Post traumatic stress disorder Postural lightheadedness Rectal bleeding Sleep apnea cpap SOB (shortness of breath) on exertion Status post partial amputation of foot Tremor of both hands Umbilical hernia Upper airway cough syndrome Vitamin D deficiency Surgical History H/O breast biopsy 02/2014--right breast, malignant H/O colonoscopy 2004/Aug 2015/MARCH 16/2020 H/O foot surgery left. bone graft, R. Ara 03/2014 Also left hammer toe repair 02/2017 History of amputation of great toe 2018--left foot History of bunionectomy of left great toe History of esophagogastroduodenoscopy (EGD) History of lumpectomy of right breast History of repair of left rotator cuff 2008 and 01/2016 History of repair of right rotator cuff 2008 History of tooth extraction History of total left knee replacement (TKR) x2-- History of total right knee replacement (TKR) 2009 History of umbilical hernia repair History of wisdom tooth extraction S/P cholecystectomy 2007 S/P dilation and curettage 2009, cannot remember what this was for. Family History Uncle Myocardial infarction Family history of diabetes mellitus Mother Myocardial infarction Anxiety Hypertension Stroke Father Myocardial infarction Family hx colonic polyps Hypertension Mood disorder Hearing loss Other Cancer Heart disease No family history of adverse response to anesthesia No family history of bleeding disorder Denies family history of Ovarian cancer Prostate cancer Breast cancer Colorectal cancer Social History Smoking Status: Never smoker Second Hand Exposure: Yes ( CHILD); Hx Alcohol Use: No Hx Substance Use: No Preferred Language: Belarusian Communication Ability: Effective Visual Impairment: Limited Hearing Ability: Normal 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 Beliefs That Will Affect Care: None marital status: Single Current Living Situation: Alone current occupational status: employed 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 How many Children do You have: 0 Other Information That Helps Us Care for You: No Feels Safe at Home: Yes Safety Concerns: Feels Safe At This Time Childhood Exposure to Second-Hand Smoke: Yes Dental Care, Regularly: Yes Physical Activity Frequency: 3-4 Times per Week Seatbelt Use: always Sunscreen Use: Yes Assistive Devices: Glasses Review of Systems Review of Systems: All systems reviewed & are unremarkable except as noted in HPI & below Physical Exam Constitutional: well developed and well nourished Eyes: EOM intact bilaterally ENMT: Ears: no external ear abnormality Nose: no external nose abnormality Mouth: + dry oral mucous membranes Neck: no nuchal rigidity Respiratory: normal respiratory effort Auscultation: + diminished lung sounds Gastrointestinal (Abdomen): Inspection/Auscultation: normal bowel sounds Percussion/Palpation: abdomen soft; abdomen nontender Musculoskeletal: Extremities: strength 5/5 throughout Skin: no rashes, warm and dry Neurologic: casanova, fluent speech, no tremor Results & Data ([facility]) Vital Signs (Past 12 Hours) Vital Signs Temp Pulse Pulse Resp BP Pulse Ox 09/04/21 11:56 36.9 C 71 16 109/72 96 09/04/21 10:40 71 09/04/21 07:47 36.4 C L 69 16 108/71 96 09/04/21 05:02 73 09/04/21 03:53 36.6 C 72 20 142/78 H 96 09/04/21 03:10 70 15 129/65 95 Laboratory Results 09/04/21 05:21 09/04/21 12:47 s Osms 395 (sic); uOsm 184; Donn 36; TSH wnl Diagnostic Findings KUB moderate constipation CXR no acute process CP PET 07/2021 1. 5 x 3.3 cm markedly FDG avid mass within the upper outer quadrant of the right breast. This extends to and may invade the underlying chest wall. This is consistent with biopsy-proven malignancy. 2. Additional 2.1 x 0.8 cm right retroareolar nodule with mild FDG uptake. This may also be malignant. 3. No evidence of distant metastatic disease.
[2021-09-04 17:42] LABS: BUN Creatinine Ratio 14.3 (10-20); Calcium 7.5 mg/dl (8.5-10.1); Creatinine Clr Calc Pharmacy 53.6 ml/min; Est GFR (African American) 50.9 ml/min; Est GFR (Non-African American) 43.9 ml/min; Potassium 3.5 mmol/L (3.5-5.1)
[2021-09-04] MEDS ORDERED: POTASSIUM CHLORIDE CRTAB 20 MEQ TABCR PO ONE (19:13)
[2021-09-04] MEDS: traZODone HCL 50 MG TAB PO PRN (22:05)
[2021-09-05] MEDS: DEXTROSE 5% 1,000 ML IV SCH (03:21)
[2021-09-05 06:58] LABS: Hematocrit (blood only) 29.1 % (37-47); Hemoglobin 9.8 g/dL (12.0-16.0); Mean Corpuscular Hemoglobin 27.7 pg (25-34); Mean Corpuscular Hgb Conc 33.7 g/dL (32-36); Mean Corpuscular Volume 82.2 fL (80-100); Mean Platelet Volume 9.8 fL (7.4-10.4); Platelet Count 193 K/uL (130-400); RDW Coefficient of Variation 14.1 % (11.5-14.5); RDW Standard Deviation 42.9 fL (36.4-46.3); Red Blood Count 3.54 M/uL (4.2-5.4); White Blood Count 7.63 K/uL (4.8-10.8)
[2021-09-05 07:42] LABS: BUN Creatinine Ratio 14.9 (10-20); Calcium 8.1 mg/dl (8.5-10.1); Creatinine Clr Calc Pharmacy 77.8 ml/min; Est GFR (African American) 80.5 ml/min; Est GFR (Non-African American) 69.4 ml/min; Potassium 3.4 mmol/L (3.5-5.1)
[2021-09-05] MEDS: FAMOTIDINE 20 MG TAB PO SCH ×2 (08:53→20:30)
[2021-09-05] MEDS: carvediloL 25 MG TAB PO SCH ×2 (08:53→20:29)
[2021-09-05] MEDS: MONTELUKAST SODIUM 10 MG TABLET PO SCH (08:54)
[2021-09-05] MEDS: VITAMIN B COMPLEX TAB PO SCH (08:54)
[2021-09-05] MEDS: ASPIRIN 81 MG ECTAB PO SCH (08:54)
[2021-09-05] MEDS: CALCIUM 600MG + VIT D 400 IU TAB PO SCH ×2 (08:54→20:29)
[2021-09-05] MEDS: ESCITALOPRAM OXALATE 10 MG TAB PO SCH (08:55)
[2021-09-05] MEDS: MIDODRINE HCL 2.5 MG TAB PO SCH ×3 (08:57→17:48)
[2021-09-05] MEDS: allopurinoL 100 MG TAB PO SCH (08:58)
[2021-09-05] MEDS: PANTOprazole 40 MG TAB PO SCH ×2 (08:59→20:32)
[2021-09-05] MEDS: CEFEPIME 2,000 MG in SYRINGE 0 ML IV SCH (09:00)
[2021-09-05] MEDS: ENOXAPARIN INJ 40 MG/0.4 ML SYR SQ SCH (09:01)
[2021-09-05] MEDS: PREGABALIN 75 MG CAP PO SCH ×2 (09:04→20:39)
[2021-09-05] MEDS: guaiFENesin 600 MG TABCR PO SCH ×2 (09:06→20:21)
[2021-09-05] MEDS: lamoTRIgine 100 MG TAB PO SCH ×3 (09:08→20:31)
[2021-09-05] MEDS: INSULIN ASPART 100 UNITS/ML 3 ML PEN SC SCH ×4 (09:18→21:06)
[2021-09-05] MEDS ORDERED: POTASSIUM CHLORIDE CRTAB 20 MEQ TABCR PO STA (09:18)
[2021-09-05] MEDS: LURASIDONE HCL 40 MG TAB PO SCH (09:24)
[2021-09-05] MEDS ORDERED: POLYETHYLENE (MIRALAX) 17 GM PACK PO PRN (10:11)
[2021-09-05] MEDS: DOCUSATE SODIUM/SENNA 50/8.6MG TAB PO SCH (10:47)
[2021-09-05] MEDS: hydrOXYzine HCl 10 MG TAB PO PRN (14:56)
--- NOTE | 2021-09-05 15:42 | Hospitalist Progress Note ---
Date of Service September 05, 2021 Assessment & Plan (1) Weakness: (2) Hyponatremia: (3) Malignant neoplasm of breast: (4) Constipation: Plan: Hyponatremia improving. Na is 135 today SERGIO resolved. Creatinine is 0.87 this morning Stop IVF fornow and monitor Hypokalemia K is 3.4 today. Continue to replete and monitor Based on labs patient appears dry. Portable x-ray abdomen showing constipation. Had BM yesterday Continue bowel regimen ordered Continue to hold losartan and triamterene. Plan to not resume diuretic on discharge Home Care Manager recommendations appreciated Blood pressure stable. Continue Lamictal. Cymbalta on hold. Continue home Lyrica, omeprazole. Hold home antidiabetic's and manage with sliding scale per protocol. Leukocytosis resolved. Infectious w/u negative Other possibilities patient recently got Filgastrim per H&P Patient requested eval by PT/OT Admission and Anticipated Discharge Date Admission Date: September 03, 2021 Subjective 66-year-old woman with history of breast cancer status post right lumpectomy in 2004, recurrence on chemo with last chemo 08/24/2021, recent hospitalization and discharged on 08/31/2021 for hyponatremia who was called in to the hospital for hyponatremia after PCP labs and was also reporting nausea and vomiting at home. Being managed for hyponatremia, acute kidney injury. Patient seen and examined. Reports some improvement in weakness today Reported some nausea earlier Denies vomiting, abdominal pain. Had a BM yesterday Denies dysuria, frequency, urgency Denies fever, chills Denies chest pain, cough, shortness of breath. Physical Exam Constitutional: + well hydrated; no acute distress Eyes: PERRL, conjunctivae normal, anicteric sclerae ENMT: external ear and nose normal, oropharynx normal Respiratory: normal respiratory effort, lungs clear to auscultation Cardiovascular: Rate/Rhythm: regular rate and regular rhythm S1 S2 Gastrointestinal (Abdomen): normal bowel sounds, soft, nontender, no hepatosplenomegaly Musculoskeletal: no cyanosis or clubbing, extremities motor strength 5/5 Neurologic: PERRL, EOMI, accommodation nl, no face palsy, no dysarthria Psychiatric: A+Ox3, euthymic affect Results & Data Results & Data ([facility]) Vital Signs (Past 12 Hours) Vital Signs Temp Pulse Pulse Resp BP Pulse Ox 09/05/21 15:19 36.7 C 72 16 124/79 96 09/05/21 15:11 69 09/05/21 12:16 36.4 C L 70 16 134/80 100 09/05/21 08:10 36.5 C 62 16 127/78 97 09/05/21 08:06 61 Laboratory Results Abnormal lab results 09/04/21 09/04/21 09/04/21 Range/Units 16:25 17:13 22:11 RBC (4.2-5.4) M/uL Hgb (12.0-16.0) g/dL Hct (37-47) % Sodium 134 L (136-145) mmol/L Potassium (3.5-5.1) mmol/L Creatinine 1.27 H (0.6-1.2) mg/dl Glucose 122 H (70-99) mg/dl POC Glucose 127 H 116 H (70-99) mg/dl Calcium 7.5 L (8.5-10.1) mg/dl 09/05/21 09/05/21 09/05/21 Range/Units 06:45 06:45 07:40 RBC 3.54 L (4.2-5.4) M/uL Hgb 9.8 L (12.0-16.0) g/dL Hct 29.1 L (37-47) % Sodium 135 L (136-145) mmol/L Potassium 3.4 L (3.5-5.1) mmol/L Creatinine (0.6-1.2) mg/dl Glucose 119 H (70-99) mg/dl POC Glucose 119 H (70-99) mg/dl Calcium 8.1 L (8.5-10.1) mg/dl 09/05/21 Range/Units 11:30 RBC (4.2-5.4) M/uL Hgb (12.0-16.0) g/dL Hct (37-47) % Sodium (136-145) mmol/L Potassium (3.5-5.1) mmol/L Creatinine (0.6-1.2) mg/dl Glucose (70-99) mg/dl POC Glucose 114 H (70-99) mg/dl Calcium (8.5-10.1) mg/dl (1) Constipation Constipation type: chronic idiopathic constipation Qualified Code(s): K59.04 - Chronic idiopathic constipation
[2021-09-05] MEDS ORDERED: POTASSIUM CHLORIDE CRTAB 20 MEQ TABCR PO ONE (16:40)
--- NOTE | 2021-09-05 16:40 | Nephrology Progress Note ---
Date of Service September 05, 2021 Assessment & Plan (1) Hyponatremia: Plan: chronic hyponatremia which worsened from intermittent low 130s to consistently in mid 120s this month in the setting of hctz use, nsaid use, recurrence of BRCA, CTX as well as n/v at home after CTX recently resumed. improved markedly w/ holding cymbalta, nsaid and 1-2L NS >sNa 135. worried about seeing us around time of 09/14 or 09/15 CTX -recheck serum osmolality (now normalized; pretty sure do not believe admission serum osms) and given that she's on hypotonic fluid recheck bmp > await repeat labs -needs to be off of hctz most likely or at least to reduce dose -- currently on hold in hospital; I added to med intolerance list -cont to hold nsaid > would ideally find non nsaid based pain medication regimen as OP >> she agrees -will give 40 mEQ po K x 1 this evening again (2) Acute renal failure: Plan: presenting creatinien 1.9; baseline creatinine 0.7-0.8. prerenal at least in part and improving w/ IV fluids though plateau'd at 1.2-1.3 -daily bmp -avoi dnephrotoxon. Admission and Anticipated Discharge Date Admission Date: September 03, 2021 Subjective seen on rounds at about 1230; feels much improved still. no sob worsening; no cough; no edema. no n/v. rest of 12 system rewiewed. next cts i112/7 ot12/8. thinks she cold do w/o celebrex if needed tool Review of Systems Review of Systems: All systems reviewed & are unremarkable except as noted in Subjective Physical Exam Constitutional: well developed and well nourished obese, up in chair Eyes: EOM intact bilaterally ENMT: Ears: no external ear abnormality Nose: no external nose abnormality Mouth: + dry oral mucous membranes Neck: no nuchal rigidity Respiratory: normal respiratory effort Auscultation: + diminished lung sounds Gastrointestinal (Abdomen): Inspection/Auscultation: normal bowel sounds Percussion/Palpation: abdomen soft; abdomen nontender Musculoskeletal: Extremities: strength 5/5 throughout Skin: no rashes, warm and dry Results & Data ([facility]) Vital Signs (Past 12 Hours) Vital Signs Temp Pulse Pulse Resp BP Pulse Ox 09/05/21 15:19 36.7 C 72 16 124/79 96 09/05/21 15:11 69 09/05/21 12:16 36.4 C L 70 16 134/80 100 09/05/21 08:10 36.5 C 62 16 127/78 97 09/05/21 08:06 61
[2021-09-05] MEDS: ATORVASTATIN 20 MG TAB PO SCH (20:28)
[2021-09-05] MEDS: CHOLECALCIFEROL 1,000 UNITS 25 MCG TAB PO SCH (20:30)
[2021-09-05] MEDS: LATANOPROST 0.005% OP SOLN 2.5 ML BTL OPB SCH (20:31)
[2021-09-05] MEDS: CEROVITE ADV FORMULA TAB PO SCH (20:31)
[2021-09-05] MEDS: MELATONIN 3 MG TAB PO SCH (22:15)
[2021-09-05] MEDS: traZODone HCL 50 MG TAB PO PRN (22:16)
[2021-09-06 07:33] LABS: Hematocrit (blood only) 30.3 % (37-47); Hemoglobin 10.1 g/dL (12.0-16.0); Mean Corpuscular Hemoglobin 27.8 pg (25-34); Mean Corpuscular Hgb Conc 33.3 g/dL (32-36); Mean Corpuscular Volume 83.5 fL (80-100); Mean Platelet Volume 9.9 fL (7.4-10.4); Platelet Count 211 K/uL (130-400); RDW Coefficient of Variation 14.6 % (11.5-14.5); RDW Standard Deviation 44.7 fL (36.4-46.3); Red Blood Count 3.63 M/uL (4.2-5.4); White Blood Count 6.36 K/uL (4.8-10.8)
[2021-09-06 08:11] LABS: BUN Creatinine Ratio 10.3 (10-20); Calcium 8.4 mg/dl (8.5-10.1); Creatinine Clr Calc Pharmacy 74.2 ml/min; Est GFR (African American) 76.2 ml/min; Est GFR (Non-African American) 65.7 ml/min; Potassium 3.6 mmol/L (3.5-5.1)
[2021-09-06] MEDS: INSULIN ASPART 100 UNITS/ML 3 ML PEN SC SCH ×3 (08:11→16:54)
[2021-09-06] MEDS: allopurinoL 100 MG TAB PO SCH (08:12)
[2021-09-06] MEDS: carvediloL 25 MG TAB PO SCH (08:13)
[2021-09-06] MEDS: ASPIRIN 81 MG ECTAB PO SCH (08:13)
[2021-09-06] MEDS: CALCIUM 600MG + VIT D 400 IU TAB PO SCH (08:13)
[2021-09-06] MEDS: ENOXAPARIN INJ 40 MG/0.4 ML SYR SQ SCH (08:14)
[2021-09-06] MEDS: DOCUSATE SODIUM/SENNA 50/8.6MG TAB PO SCH (08:14)
[2021-09-06] MEDS: FAMOTIDINE 20 MG TAB PO SCH (08:15)
[2021-09-06] MEDS: guaiFENesin 600 MG TABCR PO SCH (08:15)
[2021-09-06] MEDS: ESCITALOPRAM OXALATE 10 MG TAB PO SCH (08:15)
[2021-09-06] MEDS: lamoTRIgine 100 MG TAB PO SCH ×2 (08:16→15:29)
[2021-09-06] MEDS: PANTOprazole 40 MG TAB PO SCH (08:17)
[2021-09-06] MEDS: VITAMIN B COMPLEX TAB PO SCH (08:17)
[2021-09-06] MEDS: MONTELUKAST SODIUM 10 MG TABLET PO SCH (08:17)
[2021-09-06] MEDS: LURASIDONE HCL 40 MG TAB PO SCH (08:17)
[2021-09-06] MEDS: PREGABALIN 75 MG CAP PO SCH (08:21)
[2021-09-06] MEDS: MIDODRINE HCL 2.5 MG TAB PO SCH ×3 (08:49→16:55)
--- NOTE | 2021-09-06 12:08 | Nephrology Progress Note ---
Date of Service September 06, 2021 Assessment & Plan Admission and Anticipated Discharge Date Admission Date: September 03, 2021 Subjective Assessment & Plan (1) Hyponatremia: Plan: chronic hyponatremia which worsened from intermittent low 130s to consistently in mid 120s this month in the setting of hctz use, nsaid use, recurrence of BRCA, CTX as well as n/v at home after CTX recently resumed. improved markedly w/ holding HCTZ, nsaid and 1-2L NS >sNa 135. worried about seeing us around time of 09/14 or 09/15 CTX -recheck serum osmolality (now normalized; pretty sure do not believe admission serum osms) and given that she's on hypotonic fluid recheck bmp > await repeat labs -needs to be off of hctz forever. -cont to hold nsaid > would ideally find non nsaid based pain medication regimen as OP >> she agrees (2) Acute renal failure: Plan: presenting creatinine 1.9; baseline creatinine 0.7-0.8. prerenal and improving w/ IV fluids though plateau'd at 1.2-1.3 -daily bmp -avoid nephrotoxin. Subjective seen on rounds at about 1230; feels much improved still. no sob worsening; no cough; no edema. no n/v. rest of 12 system rewiewed. next cts i112/ ot12/8. thinks she cold do w/o celebrex if needed tool Review of Systems Review of Systems: All systems reviewed & are unremarkable except as noted in Subjective Physical Exam Constitutional: well developed and well nourished obese, up in chair Eyes: EOM intact bilaterally ENMT: Ears: no external ear abnormality Nose: no external nose abnormality M outh: + dry oral mucous membranes Neck: no nuchal rigidity Respiratory: normal respiratory effort Auscultation: + diminished lung sounds Gastrointestinal (Abdomen): Inspection/Auscultation: normal bowel sounds Percussion/Palpation: abdomen soft; abdomen nontender Musculoskeletal: Extremities: strength 5/5 throughout Skin: no rashes, warm and dry Results & Data ([facility]) Vital Signs (Past 12 Hours) Vital Signs Temp Pulse Pulse Resp BP Pulse Ox 09/06/21 11:32 36.7 C 70 20 136/90 97 09/06/21 10:36 69 09/06/21 08:15 36.6 C 69 18 151/82 H 97 09/06/21 02:58 36.4 C L 70 16 137/74 96
--- NOTE | 2021-09-06 12:49 | Discharge Summary ---
Date of Service September 06, 2021 Admission HPI Per Admitting Provider This is a 66-year-old female with a past medical history significant for breast cancer, status post right lumpectomy in 2004 . Had recurrence of breast cancer and started on chemo ands first treatment of chemotherapy on 08/24/2021 with Taxotere and cyclophosphamide and she also received filgrastim prior to the chemo and she was recently in the hospital From 08/27 to 08/31/2021 for hyponatremia.Prior to that hospitalization a few days before she was on Cymbalta. During hospitalization Cymbalta was held and was give fluids and her sodium improved to 135 . Followed with Family doctor today.As per patient the joe zhao doctor discontinued amlodipine and cut back on the dose of losartan to 50 mg and Maxzide to half the dose and midodrine was increased to 2.5 mg in a.m. and 5 mg in noon and evening and her labs were drawn and labs showed sodium of 124 and she was advised to come to the hospital. The patient says she is feeling weak and tired, poor appetite. Was nauseous and vomited a couple of times today. No diarrhea. Currently, she has some headache, no blurred visions, no earache, no runny nose, no sore throat, no cough, no fevers. No difficulty swallowing. No chest pain, no shortness of breath. She had abdominal discomfort in the afternoon, but currently resolved. Denies any diarrhea. Somewhat constipated. Denied any blood in the stool or black stools. Normal bladder movements. No rash. Ambulating okay. Admission Exam Per Admitting Provider GENERAL: The patient is obese, not in acute distress. VITAL SIGNS: Temperature 36.4, pulse 76, respiratory rate 16, blood pressure 129/60, oxygen 95% on room air. HEENT: Pupils equal, round and reactive to light. Oral mucosa moist. NECK: No JVD, no neck masses. CARDIOVASCULAR: S1 and S2 heard. Regular rate and rhythm. No murmur, no gallop. RESPIRATORY SYSTEM: Normal AP diameter. No accessory muscle use. No wheezing, no crackles. ABDOMEN: Soft, bowel sounds present, nontender, no distention. CENTRAL NERVOUS SYSTEM: Cranial nerves II-XII grossly intact, nonfocal. EXTREMITIES: No edema, no erythema. Principal Diagnosis Hyponatremia Acute Kidney Injury Discharge Exam Constitutional + well hydrated; no acute distress Eyes PERRL, conjunctivae normal, anicteric sclerae ENMT external ear and nose normal, oropharynx normal Respiratory normal respiratory effort, lungs clear to auscultation Cardiovascular Rate/Rhythm: regular rate and regular rhythm S1 S2 Gastrointestinal (Abdomen) normal bowel sounds, soft, nontender, no hepatosplenomegaly Musculoskeletal no cyanosis or clubbing, extremities motor strength 5/5 Neurologic PERRL, EOMI, accommodation nl, no face palsy, no dysarthria Psychiatric A+Ox3, euthymic affect Discharge Data Allergies Allergy/AdvReac Type Severity Reaction Status Date / Time amitriptyline Allergy Intermediate manic Verified 09/03/21 17:18 hydrocodone Allergy Intermediate Gastrointestinal Verified 09/03/21 17:18 Upset; "Too Sedating" fluoxetine [From Prozac] Allergy Unknown Unverified 09/03/21 17:18 haloperidol [From Haldol] Allergy Unknown Unverified 09/03/21 17:18 levalbuterol [From Xopenex] AdvReac Intermediate Jittery/anx Verified 09/03/21 17:18 ious perphenazine AdvReac Intermediate "caused Verified 09/03/21 17:18 the shakes" lisinopril AdvReac Mild Cough Verified 09/03/21 17:18 hydrochlorothiazide AdvReac hyponatremi Verified 09/05/21 12:36 a Consultations 09/03/21 19:23 ED Decision to Admit Stat 09/04/21 08:00 Consult Nephrology Routine Hospital Course (1) Weakness: (2) Hyponatremia: (3) Malignant neoplasm of breast: (4) Constipation: Na was 127 on admission Hyponatremia resolved. Na is 140 today SERGIO resolved. Creatinine was 1.91 on admission, now 0.91 this morning Hypokalemia resolved K is 3.6 today. Electrolyte abnormalities likely due to poor oral intake + meds (triamterene/HCTZ) Portable x-ray abdomen showing constipation. Now resolved Having BM Losartan was initially held Resumed on discharge at 15 mg at bedtime now. Patient to keep home BP log for PCP to continue to monitor and adjust meds as needed. Midodrine discontinued Triamterene/hydrochlorothiazide discontinued and should not be resumed. Patient reported that she had not been taking Latuda and Cymbalta for weeks now Advised to keep psychiatry appointment which she reported is on Monday. Avoid NSAIDs if possible Total Time Total Time Spent Total Time Spent (In Minutes): 40 Total Time Includes: Examination of the Patient, Discharge Planning, Medication Reconciliation and Communication With Other Providers Discharge Plan Discharge Items Patient Disposition: Home - Home Health Services Reason For Visit: ABNORMAL LABS, nausea and vomiting Discharge Diagnosis: Hyponatremia Acute Kidney Injury Condition on Discharge: Fair Activity: Resume your previous activity Activity Comment: Ambulate with walker Non-emergency contact: Primary Care Provider, [employer] and Oncologist Call non-emergency contact if: you have any medication questions Follow-up/Referrals: Ildefonso Langford MD [Primary Care Provider] - (Date & Time 09/10/2021 12:00 PM Provider Ildefonso Langford MD Department General Internal Medicine [facility] ) Alexx Schafer MD [Surgeon] - (Date & Time 09/10/2021 11:00 AM Provider Alexx Schafer MD Department Nephrology, [facility] ) Diet: Heart Healthy Addtl Attending Provider Instructions: Mrs Pitts You came to the hospital due to recent abnormal labs. You also reported nausea and vomiting at home. You were evaluated and found to have acute kidney injury as well as low sodium levels. You were managed and these resolved. Please stop taking triamterene-hydrochlorothiazide as we discussed. Please stop taking midodrine Your losartan was reduced to 50mg to be taken at bedtime. Monitor your blood pressure and keep record as we discussed. You reported you had stopped taking Latuda and cymbalta some weeks ago. Please ensure you keep the appointment with your Psychiatrist on Monday. Please use the walker to ambulate. Ensure follow up with your Primary Doctor. It was a pleasure taking care of you. Pending Studies at Discharge: No Stand-Alone Forms: My SERPs, Smoking Cessation Medications and DC Order Prescriptions: Continued latanoprost 0.005 % drops 1 drp OPB PM Qty: 7.5 RF: 1 vitamin B complex [B Complex-Vitamin B12] Tablet 1 tab PO QAM RF: 0 allopurinol 100 mg tablet 100 mg PO QAM Qty: 90 RF: 3 atorvastatin [Lipitor] 20 mg tablet 20 mg PO QPM Qty: 90 RF: 3 carvedilol 25 mg tablet 25 mg PO BID Qty: 180 RF: 3 celecoxib [Celebrex] 100 mg capsule 100 mg PO QDL Qty: 90 RF: 3 pantoprazole [Protonix] 40 mg tablet,delayed release (DR/EC) 40 mg PO BID Qty: 180 RF: 3 ondansetron HCl 8 mg tablet 8 mg PO Q8H PRN (Reason: nausea and vomiting) Qty: 10 RF: 0 pregabalin [Lyrica] 75 mg capsule 75 mg PO BID RF: 0 montelukast [Singulair] 10 mg tablet 10 mg PO DAILY Qty: 30 RF: 2 hydroxyzine HCl 10 mg tablet 10 mg PO .5 TIMES A DAY PRN (Reason: Anxiety) RF: 0 calcium carbonate-vitamin D3 [Calcium 600 + D(3)] 600 mg(1,500mg) -200 unit Tablet 1 tab PO BID RF: 0 aspirin 81 mg Tablet,Delayed Release (Dr/Ec) 81 mg PO QAM RF: 0 cholecalciferol (vitamin D3) [Vitamin D3] 2,000 unit Tablet 2,000 unit PO QPM RF: 0 Centrum Women 18-400 mg-mcg Tablet 1 tab PO QPM RF: 0 lamotrigine 100 mg tablet 100 mg PO BID RF: 0 nystatin 100,000 unit/gram ointment 1 applic topical DAILY PRN (Reason: Rash) RF: 0 triamcinolone acetonide 0.1 % ointment 1 applic topical DAILY PRN (Reason: Rash) RF: 0 estradiol 0.01 % (0.1 mg/gram) cream 1 appful vaginal QPM RF: 0 lamotrigine [Lamictal] 200 mg Tablet 200 mg PO QAM RF: 0 trazodone 50 mg tablet 100 - 150 mg PO HS PRN (Reason: Sleep) RF: 0 melatonin 5 mg tablet 10 - 15 mg PO HS RF: 0 Trulicity 0.75 mg/0.5 mL pen injector 0.75 mg subcut WK RF: 0 duloxetine 20 mg capsule,delayed release(DR/EC) 20 mg PO QAM RF: 0 famotidine 20 mg Tablet 20 mg PO BID RF: 0 loperamide 2 mg Capsule 2 mg PO Q24H PRN (Reason: loose stool) 7 Days Qty: 7 RF: 0 prochlorperazine maleate 10 mg tablet 10 mg PO Q6 PRN (Reason: Nausea) RF: 0 escitalopram oxalate 10 mg tablet 10 mg PO QAM RF: 0 Changed losartan 100 mg tablet 50 mg PO HS Qty: 15 RF: 0 Discontinued losartan 100 mg tablet 100 mg PO QAM Qty: 90 RF: 3 triamterene-hydrochlorothiazid 37.5-25 mg tablet 1 tab PO QAM Qty: 90 RF: 3 guaifenesin [Mucinex] 600 mg tablet extended release 12hr 600 mg PO BID Qty: 60 RF: 3 Latuda 20 mg tablet 20 mg PO DAILY RF: 0 midodrine 2.5 mg Tablet 5 mg PO TID@0800,1200,1700 7 Days Qty: 21 RF: 0 Discharge Orders: Discharge Order (Routine); Ordered 09/06/21 Ordered By: Maura Palacios Admission Data Admit Date/Time: 09/03/21 20:43 Attending Provider: Maura Palacios I. Admit Provider: Howard Castillo Primary Care Provider: Ildefonso Langford Other Providers: Howard Castillo ; Ayesha Coon ; [facility] Other Interventions: Discharge Summary Assessment (RN) Last Done: 09/06/21 13:51
== END 2021-09-06 17:19 | disposition home health service (06) ==
LOC: ED 16:37 → INTOOBSV 20:43 → EDINP 20:43 → 2W 23:26

== ENCOUNTER 2021-11-06 17:32 | Observation (INO) ==
--- NOTE | 2021-11-06 17:58 | Emergency Department Note ---
History of Present Illness General Chief complaint: Weakness Time Seen by Provider: 11/06/21 17:47 Source: patient History of Present Illness Provider complaint: Generalized weakness Onset (ago): day(s) Location: head Pain Consistency: + constant Relieved By: + none Associated symptoms: + headaches, + nausea/vomiting and + weakness; no chest pain, no cough, no fever/chills or no shortness of breath This is a 66-year-old female with a history of breast cancer on her fourth cycle of chemotherapy presenting with generalized weakness and nausea. The patient states that she had her chemotherapy on and the following day she started to feel extremely weak and nauseated. She did take her meclizine which did improve her nausea. She was able to drink a bowl of soup today but has not been eating or drinking very much. She has a slight headache but otherwise has no other complaints. She denies any fever, cough or cold symptoms, chest pain, shortness of breath, abdominal pain, vomiting, black or bloody stools, urinary symptoms or diarrhea. She does state that she feels constipated. Home Medications Medication Instructions Recorded Confirmed Type aspirin 81 mg tablet,delayed 81 mg PO QAM 10/27/19 11/06/21 History release calcium carbonate 600 mg-vitamin 1 tab PO DAILY 10/27/19 11/06/21 History D3 5 mcg (200 unit) tablet (Calcium 600 + D(3)) cholecalciferol (vitamin D3) 50 2,000 unit PO QDL 10/27/19 11/06/21 History mcg (2,000 unit) tablet (Vitamin D3) latanoprost 0.005 % eye drops 1 drp OPB PM #7.5 ml 07/02/20 11/06/21 Rx lamotrigine 200 mg tablet 200 mg PO QAM 12/31/20 11/06/21 History (Lamictal) trazodone 50 mg tablet 150 mg PO HS PRN 12/31/20 11/06/21 History lamotrigine 100 mg tablet 100 mg PO BID 02/11/21 11/06/21 History hydroxyzine HCl 10 mg tablet 10 mg PO 5XD PRN tab MDD 5 03/11/21 11/06/21 History TABS/24 HOURS. vitamin B complex (B 1 tab PO QAM 03/26/21 11/06/21 History Complex-Vitamin B12) estradiol 1 appful VAGINAL QPM 05/11/21 11/06/21 History nystatin 100,000 unit/gram topical 1 applic TOPICAL DAILY PRN 05/11/21 11/06/21 History ointment allopurinol 100 mg tablet 100 mg PO QAM #90 tab 05/31/21 11/06/21 Rx carvedilol 25 mg tablet 25 mg PO BID #180 tab 05/31/21 11/06/21 Rx pantoprazole 40 mg tablet,delayed 40 mg PO BID #180 tab 06/21/21 11/06/21 Rx release (Protonix) pregabalin 75 mg capsule (Lyrica) 75 mg PO BID cap 07/01/21 11/06/21 History dulaglutide 0.75 mg/0.5 mL 0.75 mg SUBCUT WK 08/27/21 11/06/21 History subcutaneous pen injector (Trulicity) duloxetine 20 mg capsule,delayed 20 mg PO QAM 08/27/21 11/06/21 History release famotidine 20 mg tablet 20 mg PO BID 08/27/21 11/06/21 History prochlorperazine maleate 10 mg 10 mg PO Q6 PRN 09/03/21 11/06/21 History tablet Adult Multivitamin W/Extra C 1 tab PO DAILY 11/06/21 11/06/21 History atorvastatin 20 mg tablet (Lipitor) 20 mg PO HS 11/06/21 11/06/21 History dexamethasone 0.5 mg/5 mL oral 0.5 - 1 mg PO QID PRN 11/06/21 11/06/21 History solution dexamethasone 4 mg tablet See Rx Instructions .ROUTE .COMPLEX 11/06/21 11/06/21 History escitalopram oxalate 20 mg tablet 10 mg PO DAILY 11/06/21 11/06/21 History (Lexapro) ferrous sulfate 325 mg (65 mg 325 mg PO DAILY 11/06/21 11/06/21 History iron) tablet folic acid 400 mcg tablet 0.4 mg PO DAILY 11/06/21 11/06/21 History glipizide 5 mg tablet, extended See Rx Instructions .ROUTE .COMPLEX 11/06/21 11/06/21 History release 24 hr loperamide 2 mg tablet 2 mg PO DAILY PRN 11/06/21 11/06/21 History meclizine 12.5 mg tablet 12.5 mg PO Q8H PRN 11/06/21 11/06/21 History melatonin 10 mg tablet 15 mg PO HS 11/06/21 11/06/21 History montelukast 10 mg tablet 10 mg PO HS 11/06/21 11/06/21 History (Singulair) promethazine 25 mg tablet 25 mg PO Q6H PRN 11/06/21 11/06/21 History triamcinolone acetonide 0.1 % 1 applic TOPICAL Q6H PRN 11/06/21 11/06/21 History topical ointment Allergies Allergy/AdvReac Type Severity Reaction Status Date / Time amitriptyline Allergy Intermediate manic Verified 11/06/21 18:03 hydrocodone Allergy Intermediate Gastrointestinal Verified 11/06/21 18:03 Upset; "Too Sedating" fluoxetine [From Prozac] Allergy Unknown Unknown Verified 11/06/21 18:03 haloperidol [From Haldol] Allergy Unknown Unknown Verified 11/06/21 18:03 hydrochlorothiazide AdvReac Intermediate hyponatremi Verified 11/06/21 18:03 a levalbuterol [From Xopenex] AdvReac Intermediate Jittery/anx Verified 11/06/21 18:03 ious perphenazine AdvReac Intermediate "caused Verified 11/06/21 18:03 the shakes" triamterene AdvReac Intermediate HYPONATREMI Verified 11/06/21 18:03 A lisinopril AdvReac Mild Cough Verified 11/06/21 18:03 Past Med/Surg History Medical History Abdominal pain Abnormal PFT Allergic rhinitis Anxiety Ataxia Quach's cyst, unruptured Bipolar disorder Cerebral microvascular disease PT UNAWARE Chronic cough Concussion in 1970s Depression Diabetes type 2, uncontrolled Diabetic peripheral neuropathy associated with type 2 diabetes mellitus Dizziness, nonspecific Dry cough Dyslipidemia GERD (gastroesophageal reflux disease) Glaucoma Gout History of panic attacks History of right breast cancer 2013--sx/radiation Hypertension Loss of protective sensation of skin of foot Meniere's disease MVP (mitral valve prolapse) ?hx per records/no murmur noted per multiple recent [facility] PCP physical exams Osteoarthritis Peripheral edema Post traumatic stress disorder Postural lightheadedness Rectal bleeding Sleep apnea cpap SOB (shortness of breath) on exertion Status post partial amputation of foot Tremor of both hands Umbilical hernia Upper airway cough syndrome Vitamin D deficiency Surgical History H/O breast biopsy 02/2014--right breast, malignant H/O colonoscopy Aug 2015/MARCH 16/2020 H/O foot surgery left. bone graft, Radames Metzon 03/2014 Also left hammer toe repair 02/2017 History of amputation of great toe 2018--left foot History of bunionectomy of left great toe History of esophagogastroduodenoscopy (EGD) History of lumpectomy of right breast History of repair of left rotator cuff 2008 and 01/2016 History of repair of right rotator cuff 2007 History of tooth extraction History of total left knee replacement (TKR) x2-- History of total right knee replacement (TKR) 2009 History of umbilical hernia repair History of wisdom tooth extraction S/P cholecystectomy 2007 S/P dilation and curettage 2009, cannot remember what this was for. Family History Uncle Myocardial infarction Family history of diabetes mellitus Mother Myocardial infarction Anxiety Hypertension Stroke Father Myocardial infarction Family hx colonic polyps Hypertension Mood disorder Hearing loss Other Cancer Heart disease No family history of adverse response to anesthesia No family history of bleeding disorder Denies family history of Ovarian cancer Prostate cancer Breast cancer Colorectal cancer Social History Smoking Status: Never smoker Second Hand Exposure: Yes ( CHILD); Hx Alcohol Use: No Hx Substance Use: No Preferred Language: [place]ian Communication Ability: Effective Visual Impairment: Limited Hearing Ability: Normal Jute Bag Clipper Required: No Beliefs That Will Affect Care: None marital status: Single Current Living Situation: Alone current occupational status: employed 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 and A total of 10 systems reviewed and were otherwise negative Physical Exam Vital Signs Vital Signs - 24 hr 11/06/21 17:27 11/06/21 18:35 11/06/21 19:27 Temperature 36.5 C Temperature Source Oral Pulse Rate 85 Pulse Rate [Apical] 85 70 Respiratory Rate 22 20 Blood Pressure 162/72 H Blood Pressure [Left Arm] 162/72 H 142/78 H Blood Pressure Mean 102 Blood Pressure Mean [Left Arm] 102 99 Pulse Oximetry 96 96 96 Oxygen Delivery Method Room Air Room Air Room Air Sepsis Recent Fever Within 48 Hours No Sepsis New/Unexplained Change in Mental Status No Sepsis Action Taken by Nursing No Action Required 11/06/21 21:00 Temperature Temperature Source Pulse Rate Pulse Rate [Apical] 74 Respiratory Rate 18 Blood Pressure Blood Pressure [Left Arm] 144/84 H Blood Pressure Mean Blood Pressure Mean [Left Arm] 104 Pulse Oximetry 94 Oxygen Delivery Method Room Air Sepsis Recent Fever Within 48 Hours Sepsis New/Unexplained Change in Mental Status Sepsis Action Taken by Nursing Constitutional: Vital signs reviewed. Eyes: Pupils are equal round reactive to light. Conjunctiva are noninjected. ENT: Pharynx is clear without erythema or exudate. Mucous membranes are dry. Neck supple without meningeal signs. Respiratory: Clear to auscultation bilaterally. Breath sounds are equal bilaterally. Cardiovascular: Regular rate and rhythm. No rubs or gallops. GI: Soft, nondistended and nontender. Bowel sounds are present. Musculoskeletal: No peripheral edema. No lower extremity tenderness. Integumentary: No cyanosis. or jaundice. Neurological: The patient is awake and alert. No focal deficits. Psychiatric: Normal affect. Not anxious appearing. Course Administered Medications Discontinued Medications Sodium Chloride (Nss) 500 mls @ 125 mls/hr IV .Q4H [facility] Stop: 12/06/21 17:59 Last Admin: 11/06/21 18:30 Dose: 125 mls/hr Documented by: [id number] Cefepime HCl (Maxipime) 2,000 mg in 20 mls @ 5 mls/min IV NOW STA; Protocol Stop: 11/06/21 20:41 Last Admin: 11/06/21 20:46 Dose: 5 mls/min Documented by: [id number] Potassium Chloride (Potassium Chloride Crtab 20 Meq Tabcr) 40 meq PO NOW STA Stop: 11/06/21 21:09 Last Admin: 11/06/21 21:14 Dose: 40 meq Documented by: [id number] Medical Decision Making Differential Diagnosis Chemotherapy adverse effects, anemia, dehydration, SERGIO, metabolic derangement, infection Medical Records Attestation: I reviewed the patient's medical records. I did perform a limited focused review of portions of the patient's old chart on the electronic medical record. The patient was admitted in August of last year for SERGIO and hyponatremia. Home Medications Current Medication List: was personally reviewed by me Laboratory Data Attestation: I reviewed the patient's lab results. Result diagrams: 11/06/21 18:31 11/06/21 18:31 Lab Results 11/06/21 11/06/21 11/06/21 Range/Units 18:21 18:31 18:31 WBC 19.63 H (4.8-10.8) K/uL RBC 3.67 L (4.2-5.4) M/uL Hgb 10.8 L (12.0-16.0) g/dL Hct 32.5 L (37-47) % MCV 88.6 (80-100) fL MCH 29.4 (25-34) pg MCHC 33.2 (32-36) g/dL RDW Std Deviation 58.5 H (36.4-46.3) fL RDW Coeff of Preet 17.9 H (11.5-14.5) % Plt Count 148 (130-400) K/uL MPV 11.1 H (7.4-10.4) fL Neutrophils % (Manual) 89.8 % Lymphocytes % (Manual) 6.8 % Metamyelocytes % (Man) 3.4 % Neutrophils # (Manual) 17.63 H (1.4-6.5) K/uL Total Absolute Neuts 17.63 H (1.4-6.5) K/uL Lymphocytes # (Manual) 1.33 (1.2-3.4) K/uL Total Abs Lymphocytes 1.33 (1.2-3.4) K/uL Metamyelocytes # (Man) 0.67 H (0-0) K/uL RBC Morphology Unremarkable Sodium 134 L (136-145) mmol/L Potassium 3.3 L (3.5-5.1) mmol/L Chloride 100 (98-107) mmol/L Carbon Dioxide 27 (21-32) mmol/L Anion Gap 7 (3-11) BUN 14 (6-23) mg/dl Creatinine 0.58 L (0.6-1.2) mg/dl Est Cr Clr Drug Dosing 114.4 ml/min Est GFR ( Amer) 111.3 ml/min Est GFR (Non-Af Amer) 96.1 ml/min BUN/Creatinine Ratio 24.1 H (10-20) Glucose 84 (70-99(Fasting)) mg/dl Lactate (0.4-2.0) mmol/L Calcium 8.0 L (8.5-10.1) mg/dl Magnesium 1.9 (1.7-2.4) mg/dl Total Bilirubin 1.0 (0.2-1.0) mg/dl AST 9 L (13-39) U/L ALT 13 (7-52) U/L Alkaline Phosphatase 56 (34-104) U/L Troponin I < 0.03 (0-0.04) ng/ml Total Protein 5.2 L (6.0-8.3) gm/dl Albumin 3.5 (3.4-5.0) gm/dl Globulin 1.7 L (2.5-4.0) gm/dl Albumin/Globulin Ratio 2.1 H (0.9-2) TSH (0.300-4.500) uIu/ml Urine Color Yellow Urine Appearance Clear (Clear) Urine pH 6.5 (4.5-7.5) Ur Specific [place] 1.004 (1.000-1.030) Urine Protein Negative (Negative) Urine Glucose (UA) Negative (Negative) Urine Ketones Negative (Negative) Urine Blood Negative (Negative) Urine Nitrite Negative (Negative) Urine Bilirubin Negative (Negative) Urine Urobilinogen Negative (Negative) Ur Leukocyte Esterase Trace H (Negative) Urine RBC 0-4 (0-4) /hpf Urine WBC 5-10 H (0-5) /hpf Ur Epithelial Cells 0-5 (0-5) /lpf Urine Bacteria Negative (Negative) Influ A Molecular Assay (Negative) Influ B Molecular Assay (Negative) SARS-CoV-2, RNA, NAAT (NEGATIVE) 11/06/21 11/06/21 11/06/21 Range/Units 18:31 19:20 19:20 WBC (4.8-10.8) K/uL RBC (4.2-5.4) M/uL Hgb (12.0-16.0) g/dL Hct (37-47) % MCV (80-100) fL MCH (25-34) pg MCHC (32-36) g/dL RDW Std Deviation (36.4-46.3) fL RDW Coeff of Preet (11.5-14.5) % Plt Count (130-400) K/uL MPV (7.4-10.4) fL Neutrophils % (Manual) % Lymphocytes % (Manual) % Metamyelocytes % (Man) % Neutrophils # (Manual) (1.4-6.5) K/uL Total Absolute Neuts (1.4-6.5) K/uL Lymphocytes # (Manual) (1.2-3.4) K/uL Total Abs Lymphocytes (1.2-3.4) K/uL Metamyelocytes # (Man) (0-0) K/uL RBC Morphology Sodium (136-145) mmol/L Potassium (3.5-5.1) mmol/L Chloride (98-107) mmol/L Carbon Dioxide (21-32) mmol/L Anion Gap (3-11) BUN (6-23) mg/dl Creatinine (0.6-1.2) mg/dl Est Cr Clr Drug Dosing ml/min Est GFR ( Amer) ml/min Est GFR (Non-Af Amer) ml/min BUN/Creatinine Ratio (10-20) Glucose (70-99(Fasting)) mg/dl Lactate (0.4-2.0) mmol/L Calcium (8.5-10.1) mg/dl Magnesium (1.7-2.4) mg/dl Total Bilirubin (0.2-1.0) mg/dl AST (13-39) U/L ALT (7-52) U/L Alkaline Phosphatase (34-104) U/L Troponin I (0-0.04) ng/ml Total Protein (6.0-8.3) gm/dl Albumin (3.4-5.0) gm/dl Globulin (2.5-4.0) gm/dl Albumin/Globulin Ratio (0.9-2) TSH 1.229 (0.300-4.500) uIu/ml Urine Color Urine Appearance (Clear) Urine pH (4.5-7.5) Ur Specific [place] (1.000-1.030) Urine Protein (Negative) Urine Glucose (UA) (Negative) Urine Ketones (Negative) Urine Blood (Negative) Urine Nitrite (Negative) Urine Bilirubin (Negative) Urine Urobilinogen (Negative) Ur Leukocyte Esterase (Negative) Urine RBC (0-4) /hpf Urine WBC (0-5) /hpf Ur Epithelial Cells (0-5) /lpf Urine Bacteria (Negative) Influ A Molecular Assay Negative (Negative) Influ B Molecular Assay Negative (Negative) SARS-CoV-2, RNA, NAAT NEGATIVE (NEGATIVE) 11/06/21 Range/Units 20:13 WBC (4.8-10.8) K/uL RBC (4.2-5.4) M/uL Hgb (12.0-16.0) g/dL Hct (37-47) % MCV (80-100) fL MCH (25-34) pg MCHC (32-36) g/dL RDW Std Deviation (36.4-46.3) fL RDW Coeff of Preet (11.5-14.5) % Plt Count (130-400) K/uL MPV (7.4-10.4) fL Neutrophils % (Manual) % Lymphocytes % (Manual) % Metamyelocytes % (Man) % Neutrophils # (Manual) (1.4-6.5) K/uL Total Absolute Neuts (1.4-6.5) K/uL Lymphocytes # (Manual) (1.2-3.4) K/uL Total Abs Lymphocytes (1.2-3.4) K/uL Metamyelocytes # (Man) (0-0) K/uL RBC Morphology Sodium (136-145) mmol/L Potassium (3.5-5.1) mmol/L Chloride (98-107) mmol/L Carbon Dioxide (21-32) mmol/L Anion Gap (3-11) BUN (6-23) mg/dl Creatinine (0.6-1.2) mg/dl Est Cr Clr Drug Dosing ml/min Est GFR ( Amer) ml/min Est GFR (Non-Af Amer) ml/min BUN/Creatinine Ratio (10-20) Glucose (70-99(Fasting)) mg/dl Lactate 1.2 (0.4-2.0) mmol/L Calcium (8.5-10.1) mg/dl Magnesium (1.7-2.4) mg/dl Total Bilirubin (0.2-1.0) mg/dl AST (13-39) U/L ALT (7-52) U/L Alkaline Phosphatase (34-104) U/L Troponin I (0-0.04) ng/ml Total Protein (6.0-8.3) gm/dl Albumin (3.4-5.0) gm/dl Globulin (2.5-4.0) gm/dl Albumin/Globulin Ratio (0.9-2) TSH (0.300-4.500) uIu/ml Urine Color Urine Appearance (Clear) Urine pH (4.5-7.5) Ur Specific [place] (1.000-1.030) Urine Protein (Negative) Urine Glucose (UA) (Negative) Urine Ketones (Negative) Urine Blood (Negative) Urine Nitrite (Negative) Urine Bilirubin (Negative) Urine Urobilinogen (Negative) Ur Leukocyte Esterase (Negative) Urine RBC (0-4) /hpf Urine WBC (0-5) /hpf Ur Epithelial Cells (0-5) /lpf Urine Bacteria (Negative) Influ A Molecular Assay (Negative) Influ B Molecular Assay (Negative) SARS-CoV-2, RNA, NAAT (NEGATIVE) Imaging Data Radiologist's Impression: Chest X-Ray 11/06/21 17:53 XR chest 1V portable HISTORY: 66 years-old Female weakness acute cough with weakness COMPARISON: Chest radiograph 09/03/2021 TECHNIQUE: Portable AP view of the chest FINDINGS: The cardiac silhouette is enlarged. Left subclavian Bakptz-d-Tzyv catheter is unchanged. Surgical clips are again noted projecting over the right axilla/breast. No pneumothorax, pleural effusion, airspace consolidation or overt pulmonary edema. Mild linear subsegmental atelectasis/scarring of left lung base. The bones appear grossly intact. IMPRESSION: No acute process. ACT 112: Negative or not required by law. The above report was generated using voice recognition software. It may contain grammatical, syntax or spelling errors. Electronically signed by: Chidi Cummins M.D. 11/06/2021 6:24 PM ECG Data Attestation: I personally reviewed and interpreted this ECG as follows: Indication: + weakness Rate (beats per minute): 76 Rhythm: + normal sinus ECG [place]: + Normal ECG ST segments: no ST elevation ECG Findings: no PVCs Comparison ECG Date: from (September 03, 2021) Change: no significant change MDM Narrative I did evaluate the patient as noted above. She is presenting with generalized weakness after receiving chemotherapy. She feels nauseous but otherwise has no complaints. IV access was established. I did place an order for continuous cardiac monitoring. The monitor showed normal sinus rhythm at a rate of 75 bpm. I did order and personally review the patient's 12-lead EKG as described above. She has no acute ischemic changes. I did order and personally reviewed the images of the patient's chest x-ray as described above. There is no evidence of pneumonia. I did order a urine analysis. She does not have a UTI. I did order and review the patient's blood work as noted in the electronic medical record. Her white count is significantly elevated at 19.6 with a left shift. She has chronic anemia with a hemoglobin of 10.8. Platelet count is 148. Electrolytes show hyponatremia and hypokalemia. Kidney function is preserved. LFTs are unremarkable. Troponin is negative. Testing for influenza and Covid are both negative. Given her leukocytosis without a source I did treat her with broad- spectrum antibiotic. She was given cefepime 2 g IV. I did recommend hospitalization for further care and monitoring. I did discuss case with the hospitalist and top case assembler. Impression & Plan Leukocytosis, Generalized weakness, Nausea without vomiting, Chronic anemia, Electrolyte abnormality Discharge Plan Visit Data Chief Complaint: Weakness ED Provider: Andrei Desai Discharge Problem: Leukocytosis, Generalized weakness, Nausea without vomiting, Chronic anemia, Electrolyte abnormality Patient Disposition: Being Evaluated by Hospitalist Forms Stand Alone Forms: My [facility] Prescriptions Prescriptions: No Action latanoprost 0.005 % drops 1 drp OPB PM Qty: 7.5 RF: 1 vitamin B complex [B Complex-Vitamin B12] Tablet 1 tab PO QAM RF: 0 allopurinol 100 mg tablet 100 mg PO QAM Qty: 90 RF: 3 carvedilol 25 mg tablet 25 mg PO BID Qty: 180 RF: 3 pantoprazole [Protonix] 40 mg tablet,delayed release (DR/EC) 40 mg PO BID Qty: 180 RF: 3 pregabalin [Lyrica] 75 mg capsule 75 mg PO BID RF: 0 hydroxyzine HCl 10 mg tablet 10 mg PO 5XD MDD 5 TABS/24 HOURS. PRN (Reason: Anxiety) RF: 0 calcium carbonate-vitamin D3 [Calcium 600 + D(3)] 600 mg(1,500mg) -200 unit Tablet 1 tab PO DAILY RF: 0 aspirin 81 mg Tablet,Delayed Release (Dr/Ec) 81 mg PO QAM RF: 0 cholecalciferol (vitamin D3) [Vitamin D3] 2,000 unit Tablet 2,000 unit PO QDL RF: 0 lamotrigine 100 mg tablet 100 mg PO BID RF: 0 nystatin 100,000 unit/gram ointment 1 applic topical DAILY PRN (Reason: Rash) RF: 0 estradiol 0.01 % (0.1 mg/gram) cream 1 appful vaginal QPM RF: 0 lamotrigine [Lamictal] 200 mg Tablet 200 mg PO QAM RF: 0 trazodone 50 mg tablet 150 mg PO HS PRN (Reason: Sleep) RF: 0 Trulicity 0.75 mg/0.5 mL pen injector 0.75 mg subcut WK RF: 0 duloxetine 20 mg capsule,delayed release(DR/EC) 20 mg PO QAM RF: 0 famotidine 20 mg Tablet 20 mg PO BID RF: 0 prochlorperazine maleate 10 mg tablet 10 mg PO Q6 PRN (Reason: Nausea) RF: 0 Adult Multivitamin W/Extra C 1 tab PO DAILY RF: 0 loperamide 2 mg Tablet 2 mg PO DAILY PRN (Reason: Diarrhea) RF: 0 glipizide 5 mg Tablet Extended Release 24 Hr See Rx Instructions .ROUTE .COMPLEX RF: 0 meclizine 12.5 mg Tablet 12.5 mg PO Q8H PRN (Reason: Dizziness) RF: 0 folic acid 400 mcg Tablet 0.4 mg PO DAILY RF: 0 dexamethasone 0.5 mg/5 mL Solution 0.5 - 1 mg PO QID PRN (Reason: MOUTH SORES) RF: 0 ferrous sulfate 325 mg (65 mg iron) Tablet 325 mg PO DAILY RF: 0 dexamethasone 4 mg Tablet See Rx Instructions .ROUTE .COMPLEX RF: 0 promethazine [Phenergan] 25 mg Tablet 25 mg PO Q6H PRN (Reason: Nausea) RF: 0 escitalopram oxalate [Lexapro] 20 mg Tablet 10 mg PO DAILY RF: 0 melatonin 10 mg Tablet 15 mg PO HS RF: 0 atorvastatin [Lipitor] 20 mg tablet 20 mg PO HS RF: 0 triamcinolone acetonide 0.1 % ointment 1 applic topical Q6H PRN (Reason: Itching) RF: 0 montelukast [Singulair] 10 mg tablet 10 mg PO HS RF: 0 Referrals Referrals: Ildefonso Langford MD [Primary Care Provider] -
[2021-11-06] MEDS ORDERED: SODIUM CHLORIDE 0.9% 500 ML IV SCH (18:00)
--- NOTE | 2021-11-06 18:25 | XRay Report ---
XR chest 1V portable HISTORY: 66 years-old Female weakness acute cough with weakness COMPARISON: Chest radiograph 09/03/2021 TECHNIQUE: Portable AP view of the chest FINDINGS: The cardiac silhouette is enlarged. Left subclavian Ybzqko-w-Aoca catheter is unchanged. Surgical cli ps are again noted projecting over the right axilla/breast. No pneumothorax, pleural effusion, airspa ce consolidation or overt pulmonary edema. Mild linear subsegmental atelectasis/scarring of left lung base. The bones appear grossly intact. IMPRESSION: No acute process. ACT 112: Negative or not required by law. The above report was generated using voice recognition software. It may contain grammatical, syntax o r spelling errors. Electronically signed by: Chidi Cummins M.D. 11/06/2021 6:24 PM
[2021-11-06 18:44] LABS: Hematocrit (blood only) 32.5 % (37-47); Hemoglobin 10.8 g/dL (12.0-16.0); Mean Corpuscular Hemoglobin 29.4 pg (25-34); Mean Corpuscular Hgb Conc 33.2 g/dL (32-36); Mean Corpuscular Volume 88.6 fL (80-100); Mean Platelet Volume 11.1 fL (7.4-10.4); Platelet Count 148 K/uL (130-400); RDW Coefficient of Variation 17.9 % (11.5-14.5); RDW Standard Deviation 58.5 fL (36.4-46.3); Red Blood Count 3.67 M/uL (4.2-5.4); White Blood Count 19.63 K/uL (4.8-10.8)
[2021-11-06 18:48] LABS: Appearance Urine Clear (Clear); Bilirubin Urine Negative (Negative); Blood Urine Negative (Negative); Color Urine Yellow; Glucose Urine UA Negative (Negative); Ketones Urine Negative (Negative); Leukocyte Esterase Urine Trace (Negative); Nitrite Urine Negative (Negative); Protein Urine Negative (Negative); Specific Gravity Urine 1.004 (1.000-1.030); Urobilinogen Urine Negative (Negative); pH Urine 6.5 (4.5-7.5)
[2021-11-06 19:01] LABS: Bacteria Urine Negative (Negative); Epithelial Cell Urine 0-5 /lpf (0-5); RBC Urine 0-4 /hpf (0-4)
[2021-11-06 19:04] LABS: ALC (manual) 1.33 K/uL (1.2-3.4); ANC (manual) 17.63 K/uL (1.4-6.5); Lymphocytes # (manual) 1.33 K/uL (1.2-3.4); Lymphocytes % (manual) 6.8 %; Metamyelocytes # (manual) 0.67 K/uL (0-0); Metamyelocytes % (manual) 3.4 %; Neutrophils # (manual) 17.63 K/uL (1.4-6.5); Neutrophils % (manual) 89.8 %; RBC Morphology Unremarkable
[2021-11-06 19:06] LABS: Troponin I < 0.03 ng/ml (0-0.04)
[2021-11-06 19:08] LABS: Alanine Aminotransferase 13 U/L (7-52); Albumin Globulin Ratio 2.1 (0.9-2); Albumin Level 3.5 gm/dl (3.4-5.0); Alkaline Phosphatase 56 U/L (34-104); Anion Gap 7 (3-11); Aspartate Aminotransferase 9 U/L (13-39); BUN Creatinine Ratio 24.1 (10-20); Blood Urea Nitrogen 14 mg/dl (6-23); Carbon Dioxide 27 mmol/L (21-32); Chloride 100 mmol/L (98-107); Creatinine Clr Calc Pharmacy 114.4 ml/min; Est GFR (African American) 111.3 ml/min; Est GFR (Non-African American) 96.1 ml/min; Globulin 1.7 gm/dl (2.5-4.0); Glucose 84 mg/dl (70-99(Fasting)); Magnesium 1.9 mg/dl (1.7-2.4); Potassium 3.3 mmol/L (3.5-5.1); Sodium 134 mmol/L (136-145); Total Protein 5.2 gm/dl (6.0-8.3)
[2021-11-06 20:02] LABS: Influenza A virus by PCR Negative (Negative); Influenza B virus by PCR Negative (Negative)
[2021-11-06] MEDS ORDERED: CEFEPIME 2,000 MG/20 ML VIAL IV STA (20:38)
[2021-11-06] MEDS ORDERED: POTASSIUM CHLORIDE CRTAB 20 MEQ TABCR PO STA (21:08)
--- NOTE | 2021-11-06 21:45 | History & Physical Report ---
Date of Service November 06, 2021 Assessment & Plan (1) Generalized weakness: Plan: Mild clinical dehydration secondary to recent chemotherapy hx breast cancer status post surgery ongoing chemotherapy hypertension, slightly elevated Abdominal discomfort secondary to constipation GERD, stable on regimen DM2 on oral medications, well-controlled as of recent hemoglobin A1c of 6.13 August 2021 Hypokalemia secondary to poor p.o. intake and glipizide anxiety/mood disorder, at baseline chronic anemia, hemoglobin at baseline OBS GMF IVF Facilitate home BP meds Analgesia Bowel regimen replace potassium ISS BG goal 1 10-1 40, carb count coverage PT OT eval DVT prophylaxis. Lovenox subcu Full code Text document was generated using [employer] voice recognition software. It may contain grammatical or spelling errors. Kindly contact undersigned for clarification of any documentation item in question. History of Present Illness Chief Complaint: Achy, generalized weakness Primary Care Provider: Ildefonso Langford MD History obtained from patient and records. Medical history significant for breast cancer status post surgery ongoing chemotherapy, hypertension, HEYD on CPAP, GERD, DM2 on oral medications, anxiety/mood disorder, chronic anemia (baseline hemoglobin of 10). Last confinement August 2021 for hyponatremia and acute kidney injury. Patient underwent chemotherapy session 2 days ago. Subsequently noted achy headache symptoms, generalized weakness, nausea symptoms, achy lower groin pain, constipation and bilateral leg weakness symptoms. No chest pain or unusual shortness of breath. No fever, no chills. Poor appetite. Reaction similar to previous chemo episodes as per patient. Patient consulted ER for evaluation. IV cefepime administered at the ER. 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 Allergies Allergy/AdvReac Type Severity Reaction Status Date / Time amitriptyline Allergy Intermediate manic Verified 11/06/21 18:03 hydrocodone Allergy Intermediate Gastrointestinal Verified 11/06/21 18:03 Upset; "Too Sedating" fluoxetine [From Prozac] Allergy Unknown Unknown Verified 11/06/21 18:03 haloperidol [From Haldol] Allergy Unknown Unknown Verified 11/06/21 18:03 hydrochlorothiazide AdvReac Intermediate hyponatremi Verified 11/06/21 18:03 a levalbuterol [From Xopenex] AdvReac Intermediate Jittery/anx Verified 11/06/21 18:03 ious perphenazine AdvReac Intermediate "caused Verified 11/06/21 18:03 the shakes" triamterene AdvReac Intermediate HYPONATREMI Verified 11/06/21 18:03 A lisinopril AdvReac Mild Cough Verified 11/06/21 18:03 Home Medications Medication Instructions Recorded Confirmed Type aspirin 81 mg tablet,delayed 81 mg PO QAM 10/27/19 11/06/21 History release calcium carbonate 600 mg-vitamin 1 tab PO DAILY 10/27/19 11/06/21 History D3 5 mcg (200 unit) tablet (Calcium 600 + D(3)) cholecalciferol (vitamin D3) 50 2,000 unit PO QDL 10/27/19 11/06/21 History mcg (2,000 unit) tablet (Vitamin D3) latanoprost 0.005 % eye drops 1 drp OPB PM #7.5 ml 07/02/20 11/06/21 Rx lamotrigine 200 mg tablet 200 mg PO QAM 12/31/20 11/06/21 History (Lamictal) trazodone 50 mg tablet 150 mg PO HS PRN 12/31/20 11/06/21 History lamotrigine 100 mg tablet 100 mg PO BID 02/11/21 11/06/21 History hydroxyzine HCl 10 mg tablet 10 mg PO 5XD PRN tab MDD 5 03/11/21 11/06/21 History TABS/24 HOURS. vitamin B complex (B 1 tab PO QAM 03/26/21 11/06/21 History Complex-Vitamin B12) estradiol 1 appful VAGINAL QPM 05/11/21 11/06/21 History nystatin 100,000 unit/gram topical 1 applic TOPICAL DAILY PRN 05/11/21 11/06/21 History ointment allopurinol 100 mg tablet 100 mg PO QAM #90 tab 05/31/21 11/06/21 Rx carvedilol 25 mg tablet 25 mg PO BID #180 tab 05/31/21 11/06/21 Rx pantoprazole 40 mg tablet,delayed 40 mg PO BID #180 tab 06/21/21 11/06/21 Rx release (Protonix) pregabalin 75 mg capsule (Lyrica) 75 mg PO BID cap 07/01/21 11/06/21 History dulaglutide 0.75 mg/0.5 mL 0.75 mg SUBCUT WK 08/27/21 11/06/21 History subcutaneous pen injector (Trulicity) duloxetine 20 mg capsule,delayed 40 mg PO QAM 08/27/21 11/07/21 History release famotidine 20 mg tablet 20 mg PO BID 08/27/21 11/06/21 History prochlorperazine maleate 10 mg 10 mg PO Q6 PRN 09/03/21 11/06/21 History tablet Adult Multivitamin W/Extra C 1 tab PO DAILY 11/06/21 11/06/21 History atorvastatin 20 mg tablet (Lipitor) 20 mg PO HS 11/06/21 11/06/21 History dexamethasone 0.5 mg/5 mL oral 0.5 - 1 mg PO QID PRN 11/06/21 11/06/21 History solution dexamethasone 4 mg tablet See Rx Instructions .ROUTE .COMPLEX 11/06/21 11/06/21 History ferrous sulfate 325 mg (65 mg 325 mg PO DAILY 11/06/21 11/06/21 History iron) tablet folic acid 400 mcg tablet 0.4 mg PO DAILY 11/06/21 11/06/21 History glipizide 5 mg tablet, extended See Rx Instructions .ROUTE .COMPLEX 11/06/21 11/06/21 History release 24 hr loperamide 2 mg tablet 2 mg PO DAILY PRN 11/06/21 11/06/21 History meclizine 12.5 mg tablet 12.5 mg PO Q8H PRN 11/06/21 11/06/21 History melatonin 10 mg tablet 15 mg PO HS 11/06/21 11/06/21 History montelukast 10 mg tablet 10 mg PO HS 11/06/21 11/06/21 History (Singulair) promethazine 25 mg tablet 25 mg PO Q6H PRN 11/06/21 11/06/21 History triamcinolone acetonide 0.1 % 1 applic TOPICAL Q6H PRN 11/06/21 11/06/21 History topical ointment Past Med/Surg History Medical History Abdominal pain Abnormal PFT Allergic rhinitis Anxiety Ataxia Quach's cyst, unruptured Bipolar disorder Cerebral microvascular disease PT UNAWARE Chronic cough Concussion in 1970s Depression Diabetes type 2, uncontrolled Diabetic peripheral neuropathy associated with type 2 diabetes mellitus Dizziness, nonspecific Dry cough Dyslipidemia GERD (gastroesophageal reflux disease) Glaucoma Gout History of panic attacks History of right breast cancer 2013--sx/radiation Hypertension Loss of protective sensation of skin of foot Meniere's disease MVP (mitral valve prolapse) ?hx per records/no murmur noted per multiple recent [facility] PCP physical exams Osteoarthritis Peripheral edema Post traumatic stress disorder Postural lightheadedness Rectal bleeding Sleep apnea cpap SOB (shortness of breath) on exertion Status post partial amputation of foot Tremor of both hands Umbilical hernia Upper airway cough syndrome Vitamin D deficiency Surgical History H/O breast biopsy 02/2014--right breast, malignant H/O colonoscopy Aug 2015/MARCH 16/2020 H/O foot surgery left. bone graft, R. Stilwell 03/2014 Also left hammer toe repair 02/2017 History of amputation of great toe 2018--left foot History of bunionectomy of left great toe History of esophagogastroduodenoscopy (EGD) History of lumpectomy of right breast History of repair of left rotator cuff 2008 and 01/2016 History of repair of right rotator cuff 2008 History of tooth extraction History of total left knee replacement (TKR) x2-- History of total right knee replacement (TKR) 2009 History of umbilical hernia repair History of wisdom tooth extraction S/P cholecystectomy 2007 S/P dilation and curettage 2009, cannot remember what this was for. Family History Uncle Myocardial infarction Family history of diabetes mellitus Mother Myocardial infarction Anxiety Hypertension Stroke Father Myocardial infarction Family hx colonic polyps Hypertension Mood disorder Hearing loss Other Cancer Heart disease No family history of adverse response to anesthesia No family history of bleeding disorder Denies family history of Ovarian cancer Prostate cancer Breast cancer Colorectal cancer Social History Smoking Status: Never smoker Second Hand Exposure: Yes ( CHILD); Hx Alcohol Use: No Hx Substance Use: No Preferred Language: Slovenian Communication Ability: Effective Visual Impairment: Limited Hearing Ability: Normal Correctional Supervisor Required: No Beliefs That Will Affect Care: None marital status: Single Current Living Situation: Alone current occupational status: employed 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 How many Children do You have: 0 Feels Safe at Home: Yes Childhood Exposure to Second-Hand Smoke: Yes Dental Care, Regularly: Yes Physical Activity Frequency: 3-4 Times per Week Seatbelt Use: always Sunscreen Use: Yes Assistive Devices: Glasses and Walker Review of Systems Review of Systems: As per HPI, all 10 systems reviewed, all other ROS negative Physical Exam Physical Exam: GENERAL: Slightly uncomfortable, wane, obese, respiratory distress SKIN: Pallor,, warm HEENT: Alopecia, pale palpebral conjunctivae, no ptosis, dry buccal mucosa NECK : Supple, short neck, no tenderness CHEST : Decreased breath sounds, no tenderness HEART : RRR, no obvious murmurs ABDOMEN: Some distention, hypogastric tenderness EXTREMITIES : No LE swelling/tenderness, no other conspicuous deformities noted NEUROLOGIC : Coherent, no facial asymmetry, gait and stance not assessed Results & Data Results & Data ([facility]) Vital Signs (Past 12 Hours) Vital Signs Temp Pulse Pulse Resp BP BP Pulse Ox 11/06/21 21:00 74 18 144/84 H 94 11/06/21 19:27 70 20 142/78 H 96 11/06/21 18:35 96 11/06/21 17:27 36.5 C 85 85 22 162/72 H 162/72 H 96 Laboratory Results Laboratory Results WBC 19.63 K/uL (4.8-10.8) H 11/06/21 18:31 RBC 3.67 M/uL (4.2-5.4) L 11/06/21 18:31 Hgb 10.8 g/dL (12.0-16.0) L 11/06/21 18:31 Hct 32.5 % (37-47) L 11/06/21 18:31 MCV 88.6 fL (80-100) 11/06/21 18:31 MCH 29.4 pg (25-34) 11/06/21 18:31 MCHC 33.2 g/dL (32-36) 11/06/21 18:31 RDW Std Deviation 58.5 fL (36.4-46.3) H 11/06/21 18:31 RDW Coeff of Preet 17.9 % (11.5-14.5) H 11/06/21 18:31 Plt Count 148 K/uL (130-400) 11/06/21 18:31 MPV 11.1 fL (7.4-10.4) H 11/06/21 18:31 Neutrophils % (Manual) 89.8 % 11/06/21 18:31 Lymphocytes % (Manual) 6.8 % 11/06/21 18:31 Metamyelocytes % (Man) 3.4 % 11/06/21 18:31 Neutrophils # (Manual) 17.63 K/uL (1.4-6.5) H 11/06/21 18:31 Total Absolute Neuts 17.63 K/uL (1.4-6.5) H 11/06/21 18:31 Lymphocytes # (Manual) 1.33 K/uL (1.2-3.4) 11/06/21 18:31 Total Abs Lymphocytes 1.33 K/uL (1.2-3.4) 11/06/21 18:31 Metamyelocytes # (Man) 0.67 K/uL (0-0) H 11/06/21 18:31 RBC Morphology Unremarkable 11/06/21 18:31 Sodium 134 mmol/L (136-145) L 11/06/21 18:31 Potassium 3.3 mmol/L (3.5-5.1) L 11/06/21 18:31 Chloride 100 mmol/L (98-107) 11/06/21 18:31 Carbon Dioxide 27 mmol/L (21-32) 11/06/21 18:31 Anion Gap 7 (3-11) 11/06/21 18:31 BUN 14 mg/dl (6-23) 11/06/21 18:31 Creatinine 0.58 mg/dl (0.6-1.2) L 11/06/21 18:31 Est Cr Clr Drug Dosing 114.4 ml/min 11/06/21 18:31 Est GFR ( Amer) 111.3 ml/min 11/06/21 18:31 Est GFR (Non-Af Amer) 96.1 ml/min 11/06/21 18:31 BUN/Creatinine Ratio 24.1 (10-20) H 11/06/21 18:31 Glucose 84 mg/dl (70-99(Fasting)) 11/06/21 18:31 Lactate 1.2 mmol/L (0.4-2.0) 11/06/21 20:13 Calcium 8.0 mg/dl (8.5-10.1) L 11/06/21 18:31 Magnesium 1.9 mg/dl (1.7-2.4) 11/06/21 18:31 Total Bilirubin 1.0 mg/dl (0.2-1.0) 11/06/21 18:31 AST 9 U/L (13-39) L 11/06/21 18:31 ALT 13 U/L (7-52) 11/06/21 18:31 Alkaline Phosphatase 56 U/L (34-104) 11/06/21 18: Troponin I < 0.03 ng/ml (0-0.04) 11/06/21 18:31 Total Protein 5.2 gm/dl (6.0-8.3) L 11/06/21 18:31 Albumin 3.5 gm/dl (3.4-5.0) 11/06/21 18: Globulin 1.7 gm/dl (2.5-4.0) L 11/06/21 18: Albumin/Globulin Ratio 2.1 (0.9-2) H 11/06/21 18: TSH 1.229 uIu/ml (0.300-4.500) 11/06/21 18:31 Urine Color Yellow 11/06/21 18:21 Urine Appearance Clear (Clear) 11/06/21 18:21 Urine pH 6.5 (4.5-7.5) 11/06/21 18:21 Ur Specific [place] 1.004 (1.000-1.030) 11/06/21 18:21 Urine Protein Negative (Negative) 11/06/21 18:21 Urine Glucose (UA) Negative (Negative) 11/06/21 18:21 Urine Ketones Negative (Negative) 11/06/21 18: Urine Blood Negative (Negative) 11/06/21 18: Urine Nitrite Negative (Negative) 11/06/21 18:21 Urine Bilirubin Negative (Negative) 11/06/21 18:21 Urine Urobilinogen Negative (Negative) 11/06/21 18:21 Ur Leukocyte Esterase Trace (Negative) H 11/06/21 18:21 Urine RBC 0-4 /hpf (0-4) 11/06/21 18:21 Urine WBC 5-10 /hpf (0-5) H 11/06/21 18:21 Ur Epithelial Cells 0-5 /lpf (0-5) 11/06/21 18:21 Urine Bacteria Negative (Negative) 11/06/21 18:21 Influ A Molecular Assay Negative (Negative) 11/06/21 19:20 Influ B Molecular Assay Negative (Negative) 11/06/21 19:20 SARS-CoV-2, RNA, NAAT NEGATIVE (NEGATIVE) 11/06/21 19:20 Impressions Chest X-Ray 11/06/21 17:53 XR chest 1V portable HISTORY: 66 years-old Female weakness acute cough with weakness COMPARISON: Chest radiograph 09/03/2021 TECHNIQUE: Portable AP view of the chest FINDINGS: The cardiac silhouette is enlarged. Left subclavian Hfgyfi-t-Lpdo catheter is unchanged. Surgical clips are again noted projecting over the right axilla/breast. No pneumothorax, pleural effusion, airspace consolidation or overt pulmonary edema. Mild linear subsegmental atelectasis/scarring of left lung base. The bones appear grossly intact. IMPRESSION: No acute process. ACT 112: Negative or not required by law. The above report was generated using voice recognition software. It may contain grammatical, syntax or spelling errors. Electronically signed by: Chidi Cummins M.D. 11/06/2021 6:[address] head: No acute intracranial abnormality. CT abdomen pelvis: 1. No bowel obstruction or pneumoperitoneum. 2. Moderate fecal retention. 3. Mild wall thickening of the hepatic flexure is likely secondary to partial distention. A mild nonspecific colitis is considered less likely. 4. No adenopathy or evidence of metastatic disease. 5. Normal appendix. EKG as per my interpretation rate 75, NSR, normal axis, LAE, T wave abnormalities lateral leads
[2021-11-06] MEDS ORDERED: LACTATED RINGER'S 1,000 ML IV ONE (21:49)
[2021-11-06] MEDS ORDERED: KETOROLAC TROMETHAMINE 15 MG/ML VIAL IV ONE (21:53)
[2021-11-06] MEDS ORDERED: OPTIRAY 320 100ml IV ONE (22:05)
--- NOTE | 2021-11-06 22:35 | CT Scan Report ---
CT head/brain wo con CLINICAL HISTORY: 66 years-old Female with [place]. Acute headache TECHNIQUE: Multiple axial CT images of the head were obtained without contrast. A dose lowering tech nique was utilized adhering to the principles of ALARA. CT DOSE: 2108.34 mGy.cm COMPARISON: Head CT 02/11/2021 FINDINGS: No acute intracranial hemorrhage, midline shift, intracranial mass, hydrocephalus, territorial ischem ia or abnormal extra-axial collection. Age-related involutional changes. White matter hypodensities s uggest chronic microvascular ischemic disease. Cerebral vascular calcifications. The calvarium is intact. The paranasal sinuses, mastoid air cells, and middle ear cavities are clear . IMPRESSION: No acute intracranial abnormality. ACT 112: Negative or not required by law. The above report was generated using voice recognition software. It may contain grammatical, syntax o r spelling errors. Electronically signed by: Chidi Cummins M.D. 11/06/2021 10:33 PM
--- NOTE | 2021-11-06 22:42 | CT Scan Report ---
ABDOMEN AND PELVIS CT WITH IV CONTRAST HISTORY: Acute generalized abdominal pain. History of breast cancer. abd pain TECHNIQUE: Multiaxial CT images of the abdomen and pelvis were performed following the IV administrat ion of 95 cc of Optiray, A dose lowering technique was utilized adhering to the principles of ALARA. COMPARISON STUDY: PET CT 07/21/2021. FINDINGS: Cardiomegaly. Mild bibasilar atelectasis. No pneumatosis or pneumoperitoneum. The spleen is enlarged measuring over 13 cm in length. Unremarkable pancreas, liver and adrenal glands. Cholecyste ctomy. 4 mm hypodensity of the right hepatic lobe inferiorly is too small to characterize, likely sma ll cysts. Patency of the hepatic and portal veins. There is mild right-sided hydroureteronephrosis wi th mild left-sided pelviectasis, possibly secondary to urinary bladder distention. No renal or ureter al calculi identified. Atherosclerosis of the aorta. No aneurysm. No adenopathy. Small hiatal hernia. No bowel obstruction. Moderate fecal retention. Normal appendix. There is mild w all thickening of the hepatic flexure on image 172 series 5. Unremarkable soft tissues. No acute frac ture. Degenerative changes of the spine, pelvis and hips. Chronic right iliac bone deformity. IMPRESSION: 1. No bowel obstruction or pneumoperitoneum. 2. Moderate fecal retention. 3. Mild wall thickening of the hepatic flexure is likely secondary to partial distention. A mild nons pecific colitis is considered less likely. 4. No adenopathy or evidence of metastatic disease. 5. Normal appendix. 6. Additional findings as above. ACT 112: Negative or not required by law. The above report was generated using voice recognition software. It may contain grammatical, syntax o r spelling errors. Electronically signed by: Chidi Cummins M.D. 11/06/2021 10:41 PM
[2021-11-06] MEDS ORDERED: POLYETHYLENE (MIRALAX) 17 GM PACK PO STA (23:01)
[2021-11-06] MEDS ORDERED: GLUCOSE 40% GEL 15 GM TUBE PO PRN (23:15)
[2021-11-06] MEDS ORDERED: GLUCAGON FOR INJ 1 MG VIAL SQ PRN (23:15)
[2021-11-06] MEDS ORDERED: POLYETHYLENE (MIRALAX) 17 GM PACK PO PRN (23:15)
[2021-11-06] MEDS ORDERED: PROMETHAZINE HCL 12.5 MG in SODIUM CHLORIDE 0.9% 50 ML IV PRN (23:15)
[2021-11-06] MEDS ORDERED: CARBOHYDRATES FOR HYPOGLYCEMIA PO PRN (23:15)
[2021-11-06] MEDS ORDERED: GLUCOSE 10 TABS/TUBE PO PRN (23:15)
[2021-11-06] MEDS ORDERED: IBUPROFEN 200 MG TAB PO PRN (23:15)
[2021-11-06] MEDS ORDERED: DEXTROSE 50% 50 ML SYRINGE IV PRN (23:15)
[2021-11-06] MEDS: INSULIN ASPART PER UNIT SC SCH (23:53)
[2021-11-07] MEDS ORDERED: lamoTRIgine 100 MG TAB PO STA (00:17)
[2021-11-07] MEDS: DOCUSATE SODIUM/SENNA 50/8.6MG TAB PO SCH ×3 (00:37→20:25)
[2021-11-07] MEDS: PREGABALIN 75 MG CAP PO SCH ×3 (00:38→20:30)
[2021-11-07] MEDS: PANTOprazole 40 MG TAB PO SCH ×3 (00:39→20:25)
[2021-11-07] MEDS: carvediloL 25 MG TAB PO SCH ×3 (00:39→20:27)
[2021-11-07] MEDS: FAMOTIDINE 20 MG TAB PO SCH ×3 (00:39→20:26)
[2021-11-07] MEDS: ACETAMINOPHEN 325 MG TAB PO PRN ×3 (02:15→20:24)
[2021-11-07] MEDS: traZODone HCL 50 MG TAB PO PRN ×2 (02:16→21:05)
[2021-11-07] MEDS ORDERED: HEPARIN 100 UNIT/ML 5ML FLUSH FLUSH PRN (02:32)
[2021-11-07 07:25] LABS: Hematocrit (blood only) 33.1 % (37-47); Hemoglobin 10.8 g/dL (12.0-16.0); Mean Corpuscular Hemoglobin 29.2 pg (25-34); Mean Corpuscular Hgb Conc 32.6 g/dL (32-36); Mean Corpuscular Volume 89.5 fL (80-100); Mean Platelet Volume 11.3 fL (7.4-10.4); Platelet Count 130 K/uL (130-400); RDW Standard Deviation 59.7 fL (36.4-46.3); White Blood Count 12.19 K/uL (4.8-10.8)
[2021-11-07 07:45] LABS: Basophils # (auto) 0.08 K/uL (0-0.2); Basophils % (auto) 0.7 %; Dohle Bodies 1+; Eosinophils # (auto) 0.21 K/uL (0-0.5); Eosinophils % (auto) 1.7 %; Immature Granulocytes % (auto) 9.8 %; Lymphocytes # (auto) 0.53 K/uL (1.2-3.4); Lymphocytes % (auto) 4.3 %; Monocytes # (auto) 0.03 K/uL (0.11-0.59); Monocytes % (auto) 0.2 %; Neutrophils # (auto) 10.14 K/uL (1.4-6.5); Neutrophils % (auto) 83.3 %; Toxic Vacuolation 1+
[2021-11-07 07:46] LABS: Calcium 7.9 mg/dl (8.5-10.1); Creatinine Clr Calc Pharmacy 132.6 ml/min; Est GFR (African American) 116.9 ml/min; Est GFR (Non-African American) 100.9 ml/min; Potassium 3.4 mmol/L (3.5-5.1)
[2021-11-07] MEDS: INSULIN ASPART PER UNIT SC SCH ×4 (08:45→21:02)
[2021-11-07] MEDS: ASPIRIN 81 MG ECTAB PO SCH (08:46)
[2021-11-07] MEDS: allopurinoL 100 MG TAB PO SCH (08:46)
[2021-11-07] MEDS: FOLIC ACID 400 MCG TAB PO SCH (08:47)
[2021-11-07] MEDS: lamoTRIgine 100 MG TAB PO SCH ×3 (08:47→20:26)
[2021-11-07] MEDS: DULoxetine HCL 20 MG CAP PO SCH (08:47)
[2021-11-07] MEDS: MULTIVITAMIN TAB PO SCH (08:47)
[2021-11-07] MEDS: FERROUS SULFATE 325 MG TAB PO SCH (08:47)
[2021-11-07] MEDS: ENOXAPARIN INJ 40 MG/0.4 ML SYR SQ SCH (08:48)
[2021-11-07] MEDS: VITAMIN B COMPLEX TAB PO SCH (08:48)
[2021-11-07] MEDS ORDERED: DULoxetine HCL 20 MG CAP PO SCH (09:00)
[2021-11-07] MEDS ORDERED: PREGABALIN 75 MG CAP PO SCH (09:00)
[2021-11-07] MEDS ORDERED: carvediloL 25 MG TAB PO SCH (09:00)
[2021-11-07] MEDS ORDERED: FAMOTIDINE 20 MG TAB PO SCH (09:00)
[2021-11-07] MEDS ORDERED: ESCITALOPRAM OXALATE 10 MG TAB PO SCH (09:00)
[2021-11-07] MEDS ORDERED: PANTOprazole 40 MG TAB PO SCH (09:00)
[2021-11-07] MEDS ORDERED: POTASSIUM CHLORIDE CRTAB 20 MEQ TABCR PO ONE (11:15)
--- NOTE | 2021-11-07 11:49 | Electrocardiogram Report ---
Test Reason : Blood Pressure : / mmHG Vent. Rate : 076 BPM Atrial Rate : 076 BPM P-R Int : 146 ms QRS Dur : 082 ms QT Int : 388 ms P-R-T Axes : 024 -03 068 degrees QTc Int : 436 ms Normal sinus rhythm Left atrial enlargement Borderline ECG When compared with ECG of 03-SEP-2021 18:26, Nonspecific T wave abnormality, improved in Lateral leads Confirmed by Murray Solis ([id number]) on 11/07/2021 11:49:39 AM Referred By: REFERRED SELF Confirmed By:Murray Solis
[2021-11-07] MEDS: hydrOXYzine HCl 10 MG TAB PO PRN ×2 (14:29→20:28)
--- NOTE | 2021-11-07 15:28 | Hospitalist Progress Note ---
Date of Service November 07, 2021 Assessment & Plan (1) Generalized weakness: Plan: Mild clinical dehydration secondary to recent chemotherapy hx breast cancer status post surgery ongoing chemotherapy Feels better today. PT/OT consulted. (2) Leukocytosis: Plan: Recent decadron wtih chemo, no evidence of infection. Cont to monitor off abx (3) Constipation: Plan: Improved abdominal discomfort after BM this am. (4) DMII (diabetes mellitus, type 2): Plan: Chronic, controlled. Reg diet with insulin for correction factor as needed. (5) DVT prophylaxis: Plan: Lovenox Full Dispo-pending improvement in weakness and PT/OT tiffany Rios DO [place] [facility] Hospitalist Admission and Anticipated Discharge Date Admission Date: November 07, 2021 Subjective 66 yo female with breast cancer on chemotherapy presents with nonspecific abdominal discomfort and weakness after recent treatment on Mon. Cyclophosphamide and Docetaxel infused on 11/03, given with dexamethasone. Pegfilgrastim 6mg SQ administered 11/04. she reports feeling better and is without nausea or vomiting she tolerated regular food for lunch. she had a BM this am and states that her abdominal discomfort from yesterday is improved. Review of Systems Review of Systems: All systems were reviewed and negative except as indicated above. Physical Exam Physical Exam: CONSTITUTIONAL: WNWD, vitals as above, generally well- appearing, NAD EYES: normal conjunctivae, no scleral icterus ENT: external ear and nose normal, NECK: trachea midline, RESPIRATORY: clear to auscultation bilaterally, no crackles, rales or wheezes, normal respiratory effort CARDIOVASCULAR: regular rate and rhythm, S1 and 2 heard without murmurs, gallops or rubs, no JVD, no peripheral edema, CHEST: inspection of chest was normal GASTROINTESTINAL: soft, nontender, ND, no guarding MUSCULOSKELETAL: strength 5/5 throughout, head is normocephalic and atraumatic, SKIN: warm and dry, NEUROLOGIC: CN 2-12 grossly intact, no sensory deficit, normal cognition, normal speech, no tremor PSYCHIATRIC: alert cooperative and oriented to person, place and time. Results & Data Results & Data ([facility]) Vital Signs (Past 12 Hours) Vital Signs Temp Pulse Resp BP Pulse Ox 11/07/21 10:21 96 11/07/21 07:17 36.5 C 83 18 132/76 94 Laboratory Results Short CBC 11/06/21 11/07/21 Range/Units 18:31 07:07 WBC 19.63 H 12.19 H (4.8-10.8) K/uL Hgb 10.8 L 10.8 L (12.0-16.0) g/dL Hct 32.5 L 33.1 L (37-47) % Plt Count 148 130 (130-400) K/uL BMP 11/06/21 11/07/21 18:31 07:07 Sodium 134 L 134 L Potassium 3.3 L 3.4 L Chloride 100 101 Carbon Dioxide 27 27 BUN 14 10 Creatinine 0.58 L 0.50 L Glucose 84 102 H Calcium 8.0 L 7.9 L Cardiac Enzymes 11/06/21 Range/Units 18:31 Troponin I < 0.03 (0-0.04) ng/ml Liver Function 11/06/21 Range/Units 18:31 Total Bilirubin 1.0 (0.2-1.0) mg/dl AST 9 L (13-39) U/L ALT 13 (7-52) U/L Alkaline Phosphatase 56 (34-104) U/L Albumin 3.5 (3.4-5.0) gm/dl Urine 11/06/21 Range/Units 18:21 Urine Color Yellow Urine Appearance Clear (Clear) Urine pH 6.5 (4.5-7.5) Ur Specific [place] 1.004 (1.000-1.030) Urine Protein Negative (Negative) Urine Glucose (UA) Negative (Negative) Medications Administered Current Inpatient Medications Acetaminophen (Acetaminophen 325 Mg Tab) 650 mg PO Q6H PRN PRN Reason: Fever/pain Stop: 12/07/21 01:19 Last Admin: 11/07/21 16:12 Dose: 650 mg Documented by: Allopurinol (Allopurinol 100 Mg Tab) 100 mg PO [facility] Stop: 12/07/21 08:59 Last Admin: 11/07/21 08:46 Dose: 100 mg Documented by: Aspirin (Aspirin 81 Mg Ectab) [facility] Stop: 12/07/21 08:59 Last Admin: 11/07/21 08:46 Dose: 81 mg Documented by: Atorvastatin Calcium (Atorvastatin 20 Mg Tab) 20 mg PO [facility] Stop: 12/07/21 20:59 Carvedilol (Carvedilol 25 Mg Tab) 25 mg PO BID [facility] Stop: 12/07/21 00:09 Last Admin: 11/07/21 08:46 Dose: 25 mg Documented by: Dextrose (Dextrose 50% 50 Ml Syringe) 25 - 50 ml IV UD PRN; Protocol PRN Reason: Hypoglycemia Protocol Stop: 12/06/21 23:14 Duloxetine HCl (Duloxetine Hcl 20 Mg Cap) 40 mg PO QAM [facility] Stop: 12/07/21 08:59 Last Admin: 11/07/21 08:47 Dose: 40 mg Documented by: Enoxaparin Sodium (Enoxaparin Inj 40 Mg/0.4 Ml Syr) 40 mg SQ QAM [facility] Stop: 12/07/21 08:59 Last Admin: 11/07/21 08:48 Dose: 40 mg Documented by: Famotidine (Famotidine 20 Mg Tab) 20 mg PO BID [facility] Stop: 12/07/21 00:14 Last Admin: 11/07/21 08:47 Dose: 20 mg Documented by: Ferrous Sulfate (Ferrous Sulfate 325 Mg Tab) 325 mg PO DAILY [facility] Stop: 12/07/21 08:59 Last Admin: 11/07/21 08:47 Dose: 325 mg Documented by: Folic Acid (Folic Acid 400 Mcg Tab) 400 mcg PO DAILY [facility] Stop: 12/07/21 08:59 Last Admin: 11/07/21 08:47 Dose: 400 mcg Documented by: Glucagon (Glucagon For Inj 1 Mg Vial) 1 mg SQ UD PRN; Protocol PRN Reason: Hypoglycemia Protocol Stop: 12/06/21 23:14 Glucose (Glucose 10 Tabs/Tube) 4 - 8 tabs PO UD PRN; Protocol PRN Reason: Hypoglycemia Protocol Stop: 12/06/21 23:14 Glucose (Glucose 40% Gel 15 Gm Tube) 15 - 30 gm PO UD PRN; Protocol PRN Reason: Hypoglycemia Protocol Stop: 12/06/21 23:14 Heparin Sodium (Porcine) (Heparin 100 Unit/Ml 5ml Flush) 5 ml FLUSH PRN PRN PRN Reason: Flush Stop: 12/07/21 02:31 Hydroxyzine HCl (Hydroxyzine Hcl 10 Mg Tab) 10 mg PO .UP TO 5 TIMES DAILY PRN PRN Reason: Anxiety Stop: 12/07/21 00:17 Last Admin: 11/07/21 14:29 Dose: 10 mg Documented by: Promethazine HCl 12.5 mg/ (Sodium Chloride) 50.5 mls @ 202 mls/hr IV Q6H PRN PRN Reason: Nausea And Vomiting Stop: 12/06/21 23:14 Insulin Aspart (Insulin Aspart Per Unit) 0 units SC ACHS [facility] Stop: 12/06/21 23:14 Last Admin: 11/07/21 12:47 Dose: Not Given Documented by: Lamotrigine (Lamotrigine 100 Mg Tab) 200 mg PO QAM [facility] Stop: 12/07/21 08:59 Last Admin: 11/07/21 08:47 Dose: 200 mg Documented by: Lamotrigine (Lamotrigine 100 Mg Tab) 100 mg PO BID@1400,2100 [facility] Stop: 12/07/21 13:59 Last Admin: 11/07/21 12:48 Dose: 100 mg Documented by: Melatonin (Melatonin 3 Mg Tab) 15 mg PO HS [facility] Stop: 12/07/21 20:59 Miscellaneous (Carbohydrates For Hypoglycemia ) 15 - 30 gm PO UD PRN PRN Reason: Hypoglycemia Protocol Stop: 12/06/21 23:14 Montelukast Sodium (Montelukast Sodium 10 Mg Tablet) 10 mg PO HS [facility] Stop: 12/07/21 20:59 Multivitamins (Multivitamin Tab) 1 tab PO DAILY [facility] Stop: 12/07/21 08:59 Last Admin: 11/07/21 08:47 Dose: 1 tab Documented by: Pantoprazole Sodium (Pantoprazole 40 Mg Tab) 40 mg PO BID [facility] Stop: 12/07/21 00:14 Last Admin: 11/07/21 08:48 Dose: 40 mg Documented by: Polyethylene Glycol (Polyethylene (Miralax) 17 Gm Pack) 17 gm PO DAILY PRN PRN Reason: Constipation Stop: 12/06/21 23:14 Pregabalin (Pregabalin 75 Mg Cap) 75 mg PO BID [facility] Stop: 12/07/21 00:09 Last Admin: 11/07/21 08:48 Dose: 75 mg Documented by: Senna/Docusate Sodium (Docusate Sodium/Senna 50/8.6mg Tab) 1 tab PO BID [facility] Stop: 12/06/21 23:14 Last Admin: 11/07/21 08:42 Dose: Not Given Documented by: Trazodone HCl (Trazodone Hcl 50 Mg Tab) 150 mg PO HS PRN PRN Reason: Sleep Stop: 12/06/21 23:14 Last Admin: 11/07/21 02:16 Dose: 150 mg Documented by: Vitamin B Complex (Vitamin B Complex Tab) 1 tab PO QAM [facility] Stop: 12/07/21 08:59 Last Admin: 11/07/21 08:48 Dose: 1 tab Documented by: (1) Leukocytosis Leukocytosis type: unspecified Qualified Code(s): D72.829 - Elevated white blood cell count, unspecified (2) Constipation Constipation type: chronic idiopathic constipation Qualified Code(s): K59.04 - Chronic idiopathic constipation
[2021-11-07] MEDS: MONTELUKAST SODIUM 10 MG TABLET PO SCH (20:27)
[2021-11-07] MEDS: ATORVASTATIN 20 MG TAB PO SCH (20:27)
[2021-11-07] MEDS: MELATONIN 3 MG TAB PO SCH (20:28)
[2021-11-07] MEDS: LATANOPROST 0.005% OP SOLN 2.5 ML BTL OPB SCH (21:05)
[2021-11-08] MEDS: ACETAMINOPHEN 325 MG TAB PO PRN ×3 (02:50→15:01)
[2021-11-08] MEDS: INSULIN ASPART PER UNIT SC SCH ×4 (08:08→21:00)
[2021-11-08] MEDS: DOCUSATE SODIUM/SENNA 50/8.6MG TAB PO SCH ×2 (09:02→20:15)
[2021-11-08] MEDS: FAMOTIDINE 20 MG TAB PO SCH ×2 (09:09→20:14)
[2021-11-08] MEDS: lamoTRIgine 100 MG TAB PO SCH ×3 (09:09→20:12)
[2021-11-08] MEDS: VITAMIN B COMPLEX TAB PO SCH (09:09)
[2021-11-08] MEDS: PANTOprazole 40 MG TAB PO SCH ×2 (09:10→20:15)
[2021-11-08] MEDS: FOLIC ACID 400 MCG TAB PO SCH (09:10)
[2021-11-08] MEDS: carvediloL 25 MG TAB PO SCH ×2 (09:10→20:13)
[2021-11-08] MEDS: ASPIRIN 81 MG ECTAB PO SCH (09:10)
[2021-11-08] MEDS: allopurinoL 100 MG TAB PO SCH (09:10)
[2021-11-08] MEDS: DULoxetine HCL 20 MG CAP PO SCH (09:10)
[2021-11-08] MEDS: MULTIVITAMIN TAB PO SCH (09:10)
[2021-11-08] MEDS: ENOXAPARIN INJ 40 MG/0.4 ML SYR SQ SCH (09:11)
[2021-11-08] MEDS: FERROUS SULFATE 325 MG TAB PO SCH (09:11)
[2021-11-08] MEDS: PREGABALIN 75 MG CAP PO SCH ×2 (09:11→20:10)
[2021-11-08] MEDS: hydrOXYzine HCl 10 MG TAB PO PRN ×3 (11:12→20:11)
[2021-11-08] MEDS: DICYCLOMINE HCL 10 MG CAP PO PRN ×2 (11:31→18:15)
--- NOTE | 2021-11-08 17:29 | Hospitalist Progress Note ---
Date of Service November 08, 2021 Assessment & Plan (1) Generalized weakness: Plan: 66-year-old female with medical history significant for breast cancer status post surgery ongoing chemotherapy, hypertension, HEDY on CPAP, GERD, DM2 on oral medications, anxiety/mood disorder, chronic anemia (baseline hemoglobin of 10) who presented to the ED for evaluation of generalized weakness and nausea postchemotherapy. Mild clinical dehydration secondary to recent chemotherapy hx breast cancer status post surgery ongoing chemotherapy Improved with supportive care PT/OT recommending home with home health (2) Leukocytosis: Plan: WBC 19 K --> 12 K Recent decadron wtih chemo, no evidence of infection. Cont to monitor off abx. (3) Constipation: Plan: Improved after bowel regimen however patient now with diarrhea and lower abdominal cramping Check C. difficile and stool culture Bentyl started for abdominal cramping, improved (4) DMII (diabetes mellitus, type 2): Plan: Hgb A1c 6.5 08/2021 Hold oral agents and utilize NovoLog per protocol while hospitalized (5) DVT prophylaxis: Plan: SQ Lovenox Dispo-PT OT recommending home with home health. Likely discharge home tomorrow. Admission and Anticipated Discharge Date Admission Date: November 07, 2021 Supervising Physician Co-Signing Physician Notes I have seen and examined the patient and have discussed the case with the provider above. I agree with the assessment and plan as stated. She feels improved today. Afebrile. Tolerating PO. Abdomen is sfot, NTND. Cont current therapy with Bentyl as needed Gabriel, DO Subjective Patient seen and examined. Follow-up for generalized weakness, mild clinical dehydration in the setting of chemotherapy for breast cancer. Patient reporting some abdominal cramping and diarrhea this morning. Denies bright red bleeding per rectum or dark tarry stools. No nausea or vomiting. Denies chest pain and shortness of breath. Working with PT. Review of Systems Review of Systems: ROS per HPI, all other systems reviewed and negative Physical Exam Constitutional: WD/WN, vitals as above no acute distress Respiratory: normal respiratory effort, lungs clear to auscultation Cardiovascular: Rate/Rhythm: regular rate and regular rhythm Vessels: normal peripheral pulses Extremities: no edema Gastrointestinal (Abdomen): Inspection/Auscultation: normal bowel sounds; abdomen not distended Percussion/Palpation: + abdomen tender (Mild lower abdominal tenderness present) and abdomen soft; no guarding and abdomen not rigid Skin: no rashes, warm and dry Neurologic: no focal motor deficits Psychiatric: A+Ox3, euthymic affect Results & Data Results & Data ([facility]) Vital Signs (Past 12 Hours) Vital Signs Temp Pulse Resp BP Pulse Ox 11/08/21 14:39 36.7 C 83 14 147/83 H 95 11/08/21 11:08 36.5 C 11/08/21 07:27 36.2 C L 82 14 153/54 H 95 (1) Leukocytosis Leukocytosis type: unspecified Qualified Code(s): D72.829 - Elevated white blood cell count, unspecified (2) Constipation Constipation type: chronic idiopathic constipation Qualified Code(s): K59.04 - Chronic idiopathic constipation
[2021-11-08] MEDS: LATANOPROST 0.005% OP SOLN 2.5 ML BTL OPB SCH (20:11)
[2021-11-08] MEDS: MONTELUKAST SODIUM 10 MG TABLET PO SCH (20:11)
[2021-11-08] MEDS: ATORVASTATIN 20 MG TAB PO SCH (20:12)
[2021-11-08] MEDS: MELATONIN 3 MG TAB PO SCH (20:13)
[2021-11-08] MEDS: traZODone HCL 50 MG TAB PO PRN (22:58)
[2021-11-09] MEDS: ACETAMINOPHEN 325 MG TAB PO PRN (01:48)
[2021-11-09] MEDS: DOCUSATE SODIUM/SENNA 50/8.6MG TAB PO SCH (08:41)
[2021-11-09] MEDS: INSULIN ASPART PER UNIT SC SCH ×2 (08:41→12:37)
[2021-11-09] MEDS: ASPIRIN 81 MG ECTAB PO SCH (08:42)
[2021-11-09] MEDS: MULTIVITAMIN TAB PO SCH (08:42)
[2021-11-09] MEDS: PREGABALIN 75 MG CAP PO SCH (08:42)
[2021-11-09] MEDS: PANTOprazole 40 MG TAB PO SCH (08:42)
[2021-11-09] MEDS: FAMOTIDINE 20 MG TAB PO SCH (08:42)
[2021-11-09] MEDS: allopurinoL 100 MG TAB PO SCH (08:42)
[2021-11-09] MEDS: lamoTRIgine 100 MG TAB PO SCH ×2 (08:42→12:57)
[2021-11-09] MEDS: DULoxetine HCL 20 MG CAP PO SCH (08:42)
[2021-11-09] MEDS: VITAMIN B COMPLEX TAB PO SCH (08:42)
[2021-11-09] MEDS: FOLIC ACID 400 MCG TAB PO SCH (08:42)
[2021-11-09] MEDS: carvediloL 25 MG TAB PO SCH (08:42)
[2021-11-09] MEDS: FERROUS SULFATE 325 MG TAB PO SCH (08:43)
[2021-11-09] MEDS: ENOXAPARIN INJ 40 MG/0.4 ML SYR SQ SCH (08:43)
[2021-11-09] MEDS: DICYCLOMINE HCL 10 MG CAP PO PRN (08:48)
[2021-11-09 08:57] LABS: Hemoglobin 10.9 g/dL (12.0-16.0); Mean Corpuscular Hemoglobin 29.5 pg (25-34); Mean Corpuscular Volume 89.2 fL (80-100); Mean Platelet Volume 11.2 fL (7.4-10.4); Platelet Count 147 K/uL (130-400); RDW Coefficient of Variation 17.6 % (11.5-14.5); RDW Standard Deviation 57.9 fL (36.4-46.3); White Blood Count 2.28 K/uL (4.8-10.8)
[2021-11-09 09:48] LABS: Adenovirus F 40/41 PCR Not Detected (NotDetected); Astrovirus PCR Not Detected (NotDetected); Campylobacter PCR Not Detected (NotDetected); Clostridium diff Toxin A/B PCR Not Detected (NotDetected); Cryptosporidium PCR Not Detected (NotDetected); Cyclospora cayetanensis PCR Not Detected (NotDetected); Entamoeba histolytica PCR Not Detected (NotDetected); Enteroaggregative E.coli(EAEC) Not Detected (NotDetected); Enteropathogenic E.coli (EPEC) Not Detected (NotDetected); Enterotoxigenic E.coli (ETEC) Not Detected (NotDetected); Giardia lamblia PCR Not Detected (NotDetected); Norovirus GI/GII PCR Not Detected (NotDetected); Plesiomonas shigelloides PCR Not Detected (NotDetected); Rotavirus A PCR Not Detected (NotDetected); Salmonella PCR Not Detected (NotDetected); Sapovirus PCR Not Detected (NotDetected); Shiga-like Toxin E.coli (STEC) Not Detected (NotDetected); Shigella/Enteroinvasive E.coli Not Detected (NotDetected); Vibrio cholerae PCR Not Detected (NotDetected); Vibrio species PCR Not Detected (NotDetected); Yersinia enterocolitica PCR Not Detected (NotDetected)
[2021-11-09 09:48] LABS: BUN Creatinine Ratio 16.7 (10-20); Calcium 8.7 mg/dl (8.5-10.1); Creatinine Clr Calc Pharmacy 122.8 ml/min; Est GFR (Non-African American) 98.3 ml/min; Potassium 3.6 mmol/L (3.5-5.1)
[2021-11-09] MEDS: hydrOXYzine HCl 10 MG TAB PO PRN (10:59)
--- NOTE | 2021-11-09 23:50 | Discharge Summary ---
Date of Service November 09, 2021 Admission HPI Per Admitting Provider History obtained from patient and records. Medical history significant for breast cancer status post surgery ongoing chemotherapy, hypertension, HEDY on CPAP, GERD, DM2 on oral medications, anxiety/mood disorder, chronic anemia (baseline hemoglobin of 10). Last confinement August 2021 for hyponatremia and acute kidney injury. Patient underwent chemotherapy session 2 days ago. Subsequently noted achy headache symptoms, generalized weakness, nausea symptoms, achy lower groin pain, constipation and bilateral leg weakness symptoms. No chest pain or unusual shortness of breath. No fever, no chills. Poor appetite. Reaction similar to previous chemo episodes as per patient. Patient consulted ER for evaluation. IV cefepime administered at the ER. 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 Admission Exam Per Admitting Provider GENERAL: Slightly uncomfortable, wane, obese, respiratory distress SKIN: Pallor,, warm HEENT: Alopecia, pale palpebral conjunctivae, no ptosis, dry buccal mucosa NECK : Supple, short neck, no tenderness CHEST : Decreased breath sounds, no tenderness HEART : RRR, no obvious murmurs ABDOMEN: Some distention, hypogastric tenderness EXTREMITIES : No LE swelling/tenderness, no other conspicuous deformities noted NEUROLOGIC : Coherent, no facial asymmetry, gait and stance not assessed Principal Diagnosis Toxic Gastroenteritis 2/2 chemotherapy generalized weakness leukocytosis Discharge Exam CONSTITUTIONAL: WNWD, vitals as above, generally well-appearing, NAD EYES: normal conjunctivae, no scleral icterus ENT: external ear and nose normal, NECK: trachea midline, RESPIRATORY: clear to auscultation bilaterally, no crackles, rales or wheezes, normal respiratory effort CARDIOVASCULAR: regular rate and rhythm, S1 and 2 heard without murmurs, gallops or rubs, no JVD, no peripheral edema, CHEST: inspection of chest was normal GASTROINTESTINAL: soft, nontender, ND, no guarding MUSCULOSKELETAL: strength 5/5 throughout, head is normocephalic and atraumatic, SKIN: warm and dry, NEUROLOGIC: CN 2-12 grossly intact, no sensory deficit, normal cognition, normal speech, no tremor PSYCHIATRIC: alert cooperative and oriented to person, place and time. Discharge Data Allergies Allergy/AdvReac Type Severity Reaction Status Date / Time amitriptyline Allergy Intermediate manic Verified 11/06/21 18:03 hydrocodone Allergy Intermediate Gastrointestinal Verified 11/06/21 18:03 Upset; "Too Sedating" fluoxetine [From Prozac] Allergy Unknown Unknown Verified 11/06/21 18:03 haloperidol [From Haldol] Allergy Unknown Unknown Verified 11/06/21 18:03 hydrochlorothiazide AdvReac Intermediate hyponatremi Verified 11/06/21 18:03 a levalbuterol [From Xopenex] AdvReac Intermediate Jittery/anx Verified 11/06/21 18:03 ious perphenazine AdvReac Intermediate "caused Verified 11/06/21 18:03 the shakes" triamterene AdvReac Intermediate HYPONATREMI Verified 11/06/21 18:03 A lisinopril AdvReac Mild Cough Verified 11/06/21 18:03 Consultations 11/06/21 20:38 ED Decision to Admit Stat Ordered Studies Laboratory Results WBC 2.28 K/uL (4.8-10.8) L 11/09/21 08:26 RBC 3.70 M/uL (4.2-5.4) L 11/09/21 08:26 Hgb 10.9 g/dL (12.0-16.0) L 11/09/21 08:26 Hct 33.0 % (37-47) L 11/09/21 08:26 MCV 89.2 fL (80-100) 11/09/21 08:26 MCH 29.5 pg (25-34) 11/09/21 08:26 MCHC 33.0 g/dL (32-36) 11/09/21 08:26 RDW Std Deviation 57.9 fL (36.4-46.3) H 11/09/21 08:26 RDW Coeff of Preet 17.6 % (11.5-14.5) H 11/09/21 08:26 Plt Count 147 K/uL (130-400) 11/09/21 08:26 MPV 11.2 fL (7.4-10.4) H 11/09/21 08:26 Immature Gran % (Auto) 9.8 % 11/07/21 07:07 Neut % (Auto) 83.3 % 11/07/21 07:07 Lymph % (Auto) 4.3 % 11/07/21 07:07 [place] % (Auto) 0.2 % 11/07/21 07:07 Eos % (Auto) 1.7 % 11/07/21 07:07 Baso % (Auto) 0.7 % 11/07/21 07:07 Neut # (Auto) 10.14 K/uL (1.4-6.5) H 11/07/21 07:07 Lymph # (Auto) 0.53 K/uL (1.2-3.4) L 11/07/21 07:07 [place] # (Auto) 0.03 K/uL (0.11-0.59) L 11/07/21 07:07 Eos # (Auto) 0.21 K/uL (0-0.5) 11/07/21 07:07 Baso # (Auto) 0.08 K/uL (0-0.2) 11/07/21 07:07 Immature Gran # (Auto) 1.20 K/uL (0.00-0.02) H 11/07/21 07:07 Neutrophils % (Manual) 89.8 % 11/06/21 18:31 Lymphocytes % (Manual) 6.8 % 11/06/21 18:31 Metamyelocytes % (Man) 3.4 % 11/06/21 18:31 Neutrophils # (Manual) 17.63 K/uL (1.4-6.5) H 11/06/21 18:31 Total Absolute Neuts 17.63 K/uL (1.4-6.5) H 11/06/21 18:31 Lymphocytes # (Manual) 1.33 K/uL (1.2-3.4) 11/06/21 18:31 Total Abs Lymphocytes 1.33 K/uL (1.2-3.4) 11/06/21 18:31 Metamyelocytes # (Man) 0.67 K/uL (0-0) H 11/06/21 18:31 Toxic Vacuolation 1+ 11/07/21 07:07 Dohle Bodies 1+ 11/07/21 07:07 RBC Morphology Unremarkable 11/06/21 18:31 Sodium 135 mmol/L (136-145) L 11/09/21 08:26 Potassium 3.6 mmol/L (3.5-5.1) 11/09/21 08:26 Chloride 101 mmol/L (98-107) 11/09/21 08:26 Carbon Dioxide 27 mmol/L (21-32) 11/09/21 08:26 Anion Gap 7 (3-11) 11/09/21 08:26 BUN 9 mg/dl (6-23) 11/09/21 08:26 Creatinine 0.54 mg/dl (0.6-1.2) L 11/09/21 08:26 Est Cr Clr Drug Dosing 122.8 ml/min 11/09/21 08:26 Est GFR ( Amer) 114.0 ml/min 11/09/21 08:26 Est GFR (Non-Af Amer) 98.3 ml/min 11/09/21 08:26 BUN/Creatinine Ratio 16.7 (10-20) 11/09/21 08:26 Glucose 113 mg/dl (70-99(Fasting)) H 11/09/21 08:26 POC Glucose 133 mg/dl (70-99) H 11/09/21 12:01 Lactate 1.2 mmol/L (0.4-2.0) 11/06/21 20:13 Calcium 8.7 mg/dl (8.5-10.1) 11/09/21 08:26 Magnesium 1.9 mg/dl (1.7-2.4) 11/06/21 18:31 Total Bilirubin 1.0 mg/dl (0.2-1.0) 11/06/21 18:31 AST 9 U/L (13-39) L 11/06/21 18:31 ALT 13 U/L (7-52) 11/06/21 18:31 Alkaline Phosphatase 56 U/L (34-104) 11/06/21 18:31 Troponin I < 0.03 ng/ml (0-0.04) 11/06/21 18:31 Total Protein 5.2 gm/dl (6.0-8.3) L 11/06/21 18:31 Albumin 3.5 gm/dl (3.4-5.0) 11/06/21 18:31 Globulin 1.7 gm/dl (2.5-4.0) L 11/06/21 18:31 Albumin/Globulin Ratio 2.1 (0.9-2) H 11/06/21 18:31 Lipase 27 U/L (11-82) 11/06/21 18:31 TSH 1.229 uIu/ml (0.300-4.500) 11/06/21 18:31 Urine Color Yellow 11/06/21 18:21 Urine Appearance Clear (Clear) 11/06/21 18:21 Urine pH 6.5 (4.5-7.5) 11/06/21 18:21 Ur Specific [place] 1.004 (1.000-1.030) 11/06/21 18:21 Urine Protein Negative (Negative) 11/06/21 18:21 Urine Glucose (UA) Negative (Negative) 11/06/21 18:21 Urine Ketones Negative (Negative) 11/06/21 18:21 Urine Blood Negative (Negative) 11/06/21 18:21 Urine Nitrite Negative (Negative) 11/06/21 18:21 Urine Bilirubin Negative (Negative) 11/06/21 18:21 Urine Urobilinogen Negative (Negative) 11/06/21 18:21 Ur Leukocyte Esterase Trace (Negative) H 11/06/21 18:21 Urine RBC 0-4 /hpf (0-4) 11/06/21 18:21 Urine WBC 5-10 /hpf (0-5) H 11/06/21 18:21 Ur Epithelial Cells 0-5 /lpf (0-5) 11/06/21 18:21 Urine Bacteria Negative (Negative) 11/06/21 18:21 Stl C. cayetanensis PCR Not Detected (NotDetected) 11/09/21 08:00 Stool Rotavirus A PCR Not Detected (NotDetected) 11/09/21 08:00 Stl Adenov F 40/41 PCR Not Detected (NotDetected) 11/09/21 08:00 Stool Astrovirus (PCR) Not Detected (NotDetected) 11/09/21 08:00 Stool Campylobacter PCR Not Detected (NotDetected) 11/09/21 08:00 Stl C. diff Tox B Gene Cancelled 11/09/21 08:00 Stl C. diff Tox A/B PCR Not Detected (NotDetected) 11/09/21 08:00 Stool Cryptosporidium PCR Not Detected (NotDetected) 11/09/21 08:00 Stl E.coli Shiga Tox PCR Not Detected (NotDetected) 11/09/21 08:00 Stl Enterotoxigenic E PCR Not Detected (NotDetected) 11/09/21 08:00 Stool EPEC (PCR) Not Detected (NotDetected) 11/09/21 08:00 Stool EAEC (PCR) Not Detected (NotDetected) 11/09/21 08:00 Stl E. histolytica PCR Not Detected (NotDetected) 11/09/21 08:00 Stool Giardia Lamblia PCR Not Detected (NotDetected) 11/09/21 08:00 Stool Salmonella PCR Not Detected (NotDetected) 11/09/21 08:00 Stool Sapovirus (PCR) Not Detected (NotDetected) 11/09/21 08:00 Stl P. shigelloides PCR Not Detected (NotDetected) 11/09/21 08:00 Stl Shigella/EIEC PCR Not Detected (NotDetected) 11/09/21 08:00 St Y.enterocolitica PCR Not Detected (NotDetected) 11/09/21 08:00 Stool Vibrio (PCR) Not Detected (NotDetected) 11/09/21 08:00 Stl Vibrio cholerae PCR Not Detected (NotDetected) 11/09/21 08:00 Stl Norovirus GI/GII PCR Not Detected (NotDetected) 11/09/21 08:00 Influ A Molecular Assay Negative (Negative) 11/06/21 19:20 Influ B Molecular Assay Negative (Negative) 11/06/21 19:20 SARS-CoV-2, RNA, NAAT NEGATIVE (NEGATIVE) 11/06/21 19:20 Impressions Chest X-Ray 11/06/21 17:53 XR chest 1V portable HISTORY: 66 years-old Female weakness acute cough with weakness COMPARISON: Chest radiograph 09/03/2021 TECHNIQUE: Portable AP view of the chest FINDINGS: The cardiac silhouette is enlarged. Left subclavian [id number]-[id number]-Oxam catheter is unchanged. Surgical clips are again noted projecting over the right axilla/breast. No pneumothorax, pleural effusion, airspace consolidation or overt pulmonary edema. Mild linear subsegmental atelectasis/scarring of left lung base. The bones appear grossly intact. IMPRESSION: No acute process. ACT 112: Negative or not required by law. The above report was generated using voice recognition software. It may contain grammatical, syntax or spelling errors. Electronically signed by: Chidi Cummins M.D. 11/06/2021 6:24 PM Abdomen/Pelvis CT 11/06/21 21:[address] WITH IV CONTRAST HISTORY: Acute generalized abdominal pain. History of breast cancer. abd pain TECHNIQUE: Multiaxial CT images of the abdomen and pelvis were performed following the IV administration of 95 cc of Optiray, A dose lowering technique was utilized adhering to the principles of ALARA. COMPARISON STUDY: PET CT 07/21/2021. FINDINGS: Cardiomegaly. Mild bibasilar atelectasis. No pneumatosis or pneumoperitoneum. The spleen is enlarged measuring over 13 cm in length. Unremarkable pancreas, liver and adrenal glands. Cholecystectomy. 4 mm hypodensity of the right hepatic lobe inferiorly is too small to characterize, likely small cysts. Patency of the hepatic and portal veins. There is mild right-sided hydroureteronephrosis with mild left-sided pelviectasis, possibly secondary to urinary bladder distention. No renal or ureteral calculi identified. Atherosclerosis of the aorta. No aneurysm. No adenopathy. Small hiatal hernia. No bowel obstruction. Moderate fecal retention. Normal appendix. There is mild wall thickening of the hepatic flexure on image 172 series 5. Unremarkable soft tissues. No acute fracture. Degenerative changes of the spine, pelvis and hips. Chronic right iliac bone deformity. IMPRESSION: 1. No bowel obstruction or pneumoperitoneum. 2. Moderate fecal retention. 3. Mild wall thickening of the hepatic flexure is likely secondary to partial distention. A mild nonspecific colitis is considered less likely. 4. No adenopathy or evidence of metastatic disease. 5. Normal appendix. 6. Additional findings as above. ACT 112: Negative or not required by law. The above report was generated using voice recognition software. It may contain grammatical, syntax or spelling errors. Electronically signed by: Chidi Cummins M.D. 11/06/2021 10:[address] 11/06/21 21:44 CT head/brain wo con CLINICAL HISTORY: 66 years-old Female with [place]. Acute headache TECHNIQUE: Multiple axial CT images of the head were obtained without contrast. A dose lowering technique was utilized adhering to the principles of ALARA. CT DOSE: 2108.34 mGy.cm COMPARISON: Head CT 02/11/2021 FINDINGS: No acute intracranial hemorrhage, midline shift, intracranial mass, hydrocephalus, territorial ischemia or abnormal extra-axial collection. Age- related involutional changes. White matter hypodensities suggest chronic microvascular ischemic disease. Cerebral vascular calcifications. The calvarium is intact. The paranasal sinuses, mastoid air cells, and middle ear cavities are clear. IMPRESSION: No acute intracranial abnormality. ACT 112: Negative or not required by law. The above report was generated using voice recognition software. It may contain grammatical, syntax or spelling errors. Electronically signed by: Chidi Cummins M.D. 11/06/2021 10:33 PM Hospital Course (1) Generalized weakness: 66-year-old female with medical history significant for breast cancer status post surgery ongoing chemotherapy, hypertension, HEDY on CPAP, GERD, DM2 on oral medications, anxiety/mood disorder, chronic anemia (baseline hemoglobin of 10) who presented to the ED for evaluation of generalized weakness and nausea postchemotherapy. Mild clinical dehydration secondary to recent chemotherapy Experienced diarrhea while hospitalized Cdiff negative Improved with bentyl therapy hx breast cancer status post surgery ongoing chemotherapy Improved with supportive care PT/OT recommending home with home health She was free of discomfort and tolerating PO at time of discharge. (2) Toxic gastroenteritis: (3) Leukocytosis: WBC 19 K --> 12 K Recent decadron wtih chemo, no evidence of infection. Total Time Total Time Spent Total Time Spent (In Minutes): 60 Discharge Plan Discharge Items Patient Disposition: Home - Home Health Services Reason For Visit: Abdominal pain, generalized weakness Discharge Diagnosis: toxic gastroenteritis 2/2 chemotherapy generalized weakness Activity: As commented below Activity Comment: As tolerated Non-emergency contact: Primary Care Provider and Oncologist Call non-emergency contact if: you have any medication questions, your symptoms worsen, your pain is not controlled and you have a fever Follow-up/Referrals: Ildefonso Langford MD [Primary Care Provider] - (Date & Time 11/15/2021 12:00 PM Provider Ildefonso Langford MD Department General Internal Medicine [facility] ) Diet: Carb Consistent or DM2 and Heart Healthy Addtl Attending Provider Instructions: You were admitted to the hospital for evaluation of generalized weakness and abdominal pain. You were felt to be mildly dehydrated from recent chemotherapy treatment. CT scan also showed that you had constipation. This improved with bowel regimen. You then developed diarrhea, stool testing was negative for infection. You received Bentyl for abdominal cramping which improved your symptoms. A prescription for this will be sent to the pharmacy for you to use on a as needed basis. For constipation, you may also use MiraLAX and/or a stool softener as needed. Home health has been arranged for you. An appointment has been made for you with your PCP, please keep this appointment as scheduled. It was a pleasure taking care of you. If you need to reach a member of the [facility] Hospitalist team at [facility], please call [phone]. HOMAR Ayon Pending Studies at Discharge: No Stand-Alone Forms: [facility], Smoking Cessation Medications and DC Order Prescriptions: New dicyclomine 10 mg Capsule 10 mg PO TID PRN (Reason: abdominal pain) Qty: 15 RF: 0 Continued latanoprost 0.005 % drops 1 drp OPB PM Qty: 7.5 RF: 1 vitamin B complex [B Complex-Vitamin B12] Tablet 1 tab PO QAM RF: 0 allopurinol 100 mg tablet 100 mg PO QAM Qty: 90 RF: 3 carvedilol 25 mg tablet 25 mg PO BID Qty: 180 RF: 3 pantoprazole [Protonix] 40 mg tablet,delayed release (DR/EC) 40 mg PO BID Qty: 180 RF: 3 pregabalin [Lyrica] 75 mg capsule 75 mg PO BID RF: 0 hydroxyzine HCl 10 mg tablet 10 mg PO 5XD MDD 5 TABS/24 HOURS. PRN (Reason: Anxiety) RF: 0 calcium carbonate-vitamin D3 [Calcium 600 + D(3)] 600 mg(1,500mg) -200 unit Tablet 1 tab PO DAILY RF: 0 aspirin 81 mg Tablet,Delayed Release (Dr/Ec) 81 mg PO QAM RF: 0 cholecalciferol (vitamin D3) [Vitamin D3] 2,000 unit Tablet 2,000 unit PO QDL RF: 0 lamotrigine 100 mg tablet 100 mg PO BID RF: 0 nystatin 100,000 unit/gram ointment 1 applic topical DAILY PRN (Reason: Rash) RF: 0 estradiol 0.01 % (0.1 mg/gram) cream 1 appful vaginal QPM RF: 0 lamotrigine [Lamictal] 200 mg Tablet 200 mg PO QAM RF: 0 trazodone 50 mg tablet 150 mg PO HS PRN (Reason: Sleep) RF: 0 Trulicity 0.75 mg/0.5 mL pen injector 0.75 mg subcut WK RF: 0 duloxetine 20 mg capsule,delayed release(DR/EC) 40 mg PO QAM RF: 0 famotidine 20 mg Tablet 20 mg PO BID RF: 0 prochlorperazine maleate 10 mg tablet 10 mg PO Q6 PRN (Reason: Nausea) RF: 0 Adult Multivitamin W/Extra C 1 tab PO DAILY RF: 0 loperamide 2 mg Tablet 2 mg PO DAILY PRN (Reason: Diarrhea) RF: 0 glipizide 5 mg Tablet Extended Release 24 Hr See Rx Instructions .ROUTE .COMPLEX RF: 0 meclizine 12.5 mg Tablet 12.5 mg PO Q8H PRN (Reason: Dizziness) RF: 0 folic acid 400 mcg Tablet 0.4 mg PO DAILY RF: 0 dexamethasone 0.5 mg/5 mL Solution 0.5 - 1 mg PO QID PRN (Reason: MOUTH SORES) RF: 0 ferrous sulfate 325 mg (65 mg iron) Tablet 325 mg PO DAILY RF: 0 dexamethasone 4 mg Tablet See Rx Instructions .ROUTE .COMPLEX RF: 0 promethazine 25 mg Tablet 25 mg PO Q6H PRN (Reason: Nausea) RF: 0 melatonin 10 mg Tablet 15 mg PO HS RF: 0 atorvastatin [Lipitor] 20 mg tablet 20 mg PO HS RF: 0 triamcinolone acetonide 0.1 % ointment 1 applic topical Q6H PRN (Reason: Itching) RF: 0 montelukast [Singulair] 10 mg tablet 10 mg PO HS RF: 0 Discharge Orders: Discharge Order (Routine); Ordered 11/09/21 Ordered By: Celine Holliday Admission Data Admit Date/Time: 11/07/21 12:24 Attending Provider: Kathy Rios Admit Provider: Kumar Madrid Primary Care Provider: Ildefonso Langford Other Providers: Kumar Madrid ; [facility] ; [facility] Other Interventions: Discharge Summary Assessment (RN) Last Done: 11/09/21 12:47
== END 2021-11-09 14:34 | disposition home health service (06) ==
LOC: ED 17:32 → 3W 17:32